=== PATIENT | female | born 1930 | race Caucasian/White ===

== ENCOUNTER → 2016-08-13 | Outpatient (CLI) | payer OTHER ==
[~2016-08-13] MED LIST: ACET-1079 PO; ALBU18002 INH; ASPI81TA28 PO; BUME1TAB PO; CLR10 PO; DEXT1TAB50 PO; DILT120C PO; DILT120T8 PO; DOXY100C76 PO; FLUT1SPR12 NAE; GABA-112 PO; ISOS30TA3 PO; LEVO175T3 PO; METO25TA56 PO; MULT-190 PO; NIAC250T8 PO; POTA20TA13 PO; SYN150 PO; [UNRECOGNIZED DRUG - CODE] TOP
--- NOTE | 2016-08-13 10:17 | DIAGNOSTIC IMAGING REPORT ---
CT OF THE CHEST WITHOUT IV CONTRAST CLINICAL HISTORY: J18.9 pneumonia COMPARISON STUDY: Outside CT scan dated 06/26/2016 CT DOSE: 281.92 mGycm TECHNIQUE: CT of the thorax was performed from the thoracic inlet to the lung bases. Images are reviewed in the axial, sagittal, and coronal planes. IV contrast was not administered for this examination. FINDINGS: Thyroid: No significant thyroid tissue is visualized. Thoracic aorta: The thoracic aorta is normal in course and caliber, noting standard 3 vessel arch anatomy. Heart: There are moderate coronary artery calcifications. Lungs and pleural spaces: There is evidence for underlying interstitial lung disease. There is subpleural reticulation. There is evidence for traction bronchiectasis. There are areas of groundglass opacification most pronounced within the upper lobes. The findings remain essentially unchanged from the preceding study. There are no pleural effusions. Mediastinum: There is mild mediastinal lymphadenopathy, with enlarged paratracheal and prevascular and subcarinal lymph nodes, unchanged from the preceding examination. This may be secondary to interstitial lung disease. Vidhya: Evaluation the hilar structures is limited due to the lack of intravenous contrast Axilla: There is no evidence of pathologic axillary lymphadenopathy Upper abdomen: Partially visualized upper abdominal viscera is within normal limits. Skeletal structures: There are no lytic or blastic osseous lesions. IMPRESSION: 1. Nonspecific interstitial lung disease, unchanged from the prior May 2016 study. This is characterized by subpleural reticulation, traction bronchiectasis, and areas of groundglass attenuation. 2. Mild mediastinal lymphadenopathy, unchanged the prior study, and possibly secondary to the patient's underlying interstitial lung disease 3. No evidence of acute parenchymal consolidation Electronically signed by: Jann Pena M.D. 08/13/2016 10:15 AM Dictated Date/Time: 08/13/2016 10:10 AM
== END | disposition home or self-care (01) ==
LOC: C.CTS 09:55
PROVIDERS: ATTEND Internal Medicine
DX: J18.9 Pneumonia, unspecified organism (principal)

== ENCOUNTER → 2016-09-23 | Outpatient (CLI) | payer OTHER ==
--- NOTE | 2016-09-23 18:08 | DIAGNOSTIC IMAGING REPORT ---
CHEST 2 VIEWS ROUTINE CLINICAL HISTORY: 86 years-old Female presenting with congestive heart failure. TECHNIQUE: PA and lateral views of the chest were obtained. COMPARISON: 09/26/2015. FINDINGS: Median sternotomy wires and mediastinal surgical clip noted. Atherosclerosis of the aortic arch. Mildly prominent cardiac silhouette, unchanged. Reticular nodular opacities diffusely although asymmetrically greater on the left. Overall symmetric lung volumes. Nodularity in the right paramediastinal lung base may be vascular in etiology but are more prominent on the current exam. No other focal infiltrate. Pleural spaces clear. Osseous structures and upper abdomen normal. IMPRESSION: 1. Diffuse reticulonodular opacities consistent with chronic lung disease, possibly fibrosis. Apparent nodular opacities in the right paramediastinal lower lung may be vascular in etiology. CT could be considered if clinically warranted. 2. No evidence of pulmonary edema as clinically queried. Electronically signed by: Carlos Matias M.D. 09/23/2016 6:06 PM Dictated Date/Time: 09/23/2016 6:03 PM
== END | disposition home or self-care (01) ==
LOC: C.RAD 17:21
PROVIDERS: ATTEND Nurse Practitioner
DX: I50.9 Heart failure, unspecified (principal); R91.8 Other nonspecific abnormal finding of lung field

== ENCOUNTER → 2016-09-26 | Outpatient (CLI) | payer OTHER ==
[2016-09-26 16:53] LABS: BLOOD UREA NITROGEN 23 mg/dl (7-18); BUN/CREATININE RATIO 21.3 (10-20); CALCIUM 9.5 mg/dl (8.5-10.1); CARBON DIOXIDE 32 mmol/L (21-32); CHLORIDE 103 mmol/L (98-107); GLUCOSE 91 mg/dl (70-99); POTASSIUM 4.3 mmol/L (3.5-5.1); SODIUM 140 mmol/L (136-145)
== END | disposition home or self-care (01) ==
LOC: C.LABBC 13:48
PROVIDERS: ATTEND Nurse Practitioner
DX: I50.9 Heart failure, unspecified (principal)

== ENCOUNTER 2016-10-25 12:10 | Observation (INO) | payer OTHER ==
[~2016-10-25] VITALS: Ht 147.3 cm; Wt 69.3 kg
[~2016-10-25 12:10] MED LIST changes: -ALBU18002 INH; -DILT120C PO; -DILT120T8 PO; -DOXY100C76 PO; -FLUT1SPR12 NAE; -GABA-112 PO; -SYN150 PO
[2016-10-25] MEDS ORDERED: HydrALAZINE HCL 20 MG/ML VIAL IV. STA ×2 (12:49→14:24)
[2016-10-25] MEDS ORDERED: FLUT1SPR12 NAE (13:02)
[2016-10-25] MEDS ORDERED: ALBU18002 INH (13:02)
[2016-10-25] MEDS ORDERED: DILT120T8 PO (13:02)
[2016-10-25] MEDS ORDERED: GABA-112 PO ×2 (13:02)
[2016-10-25] MEDS ORDERED: SYN150 PO (13:02)
[2016-10-25] MEDS ORDERED: DOXY100C76 PO (13:03)
--- NOTE | 2016-10-25 13:13 | DIAGNOSTIC IMAGING REPORT ---
CHEST ONE VIEW PORTABLE CLINICAL HISTORY: 86 years-old Female presenting with HTN urgency. TECHNIQUE: AP view of the chest was obtained. COMPARISON: 09/23/2016. FINDINGS: Atherosclerosis of aortic arch. Median sternotomy wires and mediastinal surgical clips again noted. Prominence of the cardiac silhouette unchanged. Prominence of the pulmonary vasculature is on prior exam. Diffuse reticular opacities best demonstrated on CT from 08/13/2016. Previous identified nodular opacities most likely correspond to vascular markings. No new focal infiltrate. No large effusion or pneumothorax. Osseous structures normal. Ovoid radiodensity in the left upper quadrant may relate to medication administration. IMPRESSION: 1. Evidence of chronic interstitial lung disease best demonstrated on CT from 08/13/2016. No new focal infiltrate. 2. Cardiomegaly with pulmonary vascular prominence. No karol evidence of pulmonary edema. Electronically signed by: Carlos Matias M.D. 10/25/2016 1:11 PM Dictated Date/Time: 10/25/2016 1:09 PM
[2016-10-25 13:42] LABS: BASO % 0.5 %; BASO ABS # 0.05 K/uL (0-0.2); COMPLETE YES; HEMATOCRIT 40.3 % (37-47); IG% 0.3 %; LYMPH % 33.1 %; MEAN CELL VOLUME 92.9 fL (80-100); MEAN CORPUSCULAR HEMOGLOBIN 32.3 pg (25-34); MEAN CORPUSCULAR HGB CONC 34.7 g/dl (32-36); MEAN PLATELET VOLUME 9.5 fL (7.4-10.4); MONO % 8.3 %; NEUT % 52.8 %; PLATELET COUNT 288 K/uL (130-400); RED BLOOD COUNT 4.34 M/uL (4.2-5.4); WHITE BLOOD COUNT 9.96 K/uL (4.8-10.8)
[2016-10-25 14:01] LABS: CALCIUM 9.3 mg/dl (8.5-10.1); CREATININE 0.9 mg/dl (0.60-1.20); MAGNESIUM 1.8 mg/dl (1.8-2.4); POTASSIUM 3.6 mmol/L (3.5-5.1)
[2016-10-25 14:06] LABS: CKMB/CK RATIO 2.7 (0-3.0)
--- NOTE | 2016-10-25 14:14 | EMERGENCY ROOM VISIT NOTE ---
History Report prepared by Al: Brad Pizarro Under the Supervision of: Dr. Radha Brown M.D. First contact with patient: 12:36 Chief Complaint: HYPERTENSION Stated Complaint: EYE HEMORAGING, A-FIB History of Present Illness The patient is an 86 year old female who presents to the Emergency Room with complaints of a constant subconjunctival hemorrhage of the left eye and hypertension beginning this morning. The patient states that when she woke up this morning, her eye was completely red. She reports that she has a history of macular degeneration, but her vision is still baseline. The patient notes that she takes a baby aspirin everyday, but she has not taken it yet. She denies being on any other blood thinners. The patient states that she did take her blood pressure medication, and the last time she saw her PCP for it was a month ago. She notes that her blood pressure was high when she left home. She reports that she went to the doctors this week because she had crackles in her lungs. The patient notes that she was placed on antibiotics, and she is still on them. She states that her left neck and left ear are in pain, and her abdomen feels bloated. The patient denies chest pain and shortness of breath. She notes that her Bumex was recently increased, and she has a history of a-fib and CVA. Source of History: patient Onset: this morning Position: eye (left) Quality: other (subconjunctival hemorrhage) Timing: constant Associated Symptoms: + neck pain (left-sided), No chest pain, No SOB Note: Associated symptoms: left ear pain, bloated abdomen. Review of Systems See HPI for pertinent positives & negatives. A total of 10 systems reviewed and were otherwise negative. Past Medical & Surgical Medical Problems: (1) A-fib (2) Coronary artery disease (3) TIA (transient ischemic attack) Surgical Problems: (1) S/P CABG x 3 Family History No pertinent family history Social History Smoking Status: Never Smoker Marital Status: Housing Status: lives with family Occupation Status: retired Current/Historical Medications Scheduled Aspirin (Aspirin Ec), 81 MG PO DAILY Bumetanide (Bumex), 1 MG PO BID Dextromethorphan-Guaifenesin (Mucinex Dm Maximum Streng), 1 TAB PO DAILY Diltiazem Hcl (Cardizem), 120 MG PO QPM Doxycycline Monohydrate (Monodox), 100 MG PO BID Gabapentin (Neurontin), 100 MG PO AFTERNOON Gabapentin (Neurontin), 200 MG PO HS Isosorbide Mononitrate Ext Rel (Imdur Ext Rel), 30 MG PO QAM Levothyroxine Sodium (Synthroid), 150 MCG PO QAM Loratadine (Claritin), 10 MG PO DAILY Metoprolol Tartrate (Lopressor) (Lopressor), 12.5 MG PO BID Niacin (Niacin), 500 MG PO DAILY Ocuvite Preservision (Ocuvite Preservision), 1 TAB PO BID Potassium Chloride Microencaps (Potassium Chloride Er), 20 MEQ PO BID Scheduled PRN Acetaminophen W/ Codeine (Tylenol/Codeine #4), 1 TAB PO QID PRN for Pain Albuterol Sulfate (Proair Respiclick), 1 PUFF INH BID PRN for SOB/Wheezing Fluticasone Propionate (Nasal) (Flonase Allergy Relief Ch), 2 SPRAY ADRIENNE DAILY PRN for Allergies Coded Allergies: Penicillins (Verified Allergy, Intermediate, Diarrhea and vomiting, ) Sulfamethoxazole w/Trimethoprim (Verified Allergy, Intermediate, Diarrhea , vomiting, 10/25/16) Amoxicillin (Unverified Allergy, Unknown, RASH,GI UPSET, 10/25/16) Cantaloupe (Verified Allergy, Unknown, Itchiness, 10/25/16) Celery (Unverified Allergy, Unknown, ITCHINESS, 10/25/16) Vidal (Unverified Allergy, Unknown, ITCHINESS, 10/25/16) Peanut (Unverified Allergy, Unknown, ITCHINESS, 10/25/16) Spinach (Unverified Allergy, Unknown, ITCHINESS, 10/25/16) Statins (Unverified Allergy, Unknown, RASH, GI UPSET, 10/25/16) Physical Exam Vital Signs Date Time Temp Pulse Resp B/P (MAP) Pulse Ox O2 Delivery O2 Flow Rate FiO2 10/25/16 15:01 128/56 10/25/16 15:00 64 25 94 10/25/16 14:55 61 22 10/25/16 14:50 62 20 10/25/16 14:45 60 19 10/25/16 14:40 60 17 10/25/16 14:39 139/62 8/26/17 14:35 60 19 10/25/16 14:31 167/64 10/25/16 14:30 62 21 10/25/16 14:25 67 19 10/25/16 14:24 184/79 10/25/16 13:55 62 20 94 Room Air 10/25/16 13:40 64 18 10/25/16 13:31 160/75 10/25/16 13:28 55 161/58 98 Room Air 10/25/16 13:25 54 22 10/25/16 13:16 161/58 10/25/16 13:15 54 10/25/16 12:16 36.7 60 18 187/76 92 Room Air Physical Exam Vital signs reviewed. Noted to be HTN. General: Well-appearing 86 year old female, in no significant distress. HEENT: Left subconjunctival hemorrhage. PERRLA, neck supple. Atraumatic. Cardiovascular: Regular rate and rhythm with occasional ectopy. Pulmonary: Left greater than right crackles. Abdomen: Soft, nontender, nondistended, positive bowel sounds. Musculoskeletal: Atraumatic, no peripheral edema. Neurologic: Patient awake alert and oriented x 3, full strength in all 4 extremities. Cranial nerves 2 through 12 grossly intact. Skin: Warm, dry, no rash Medical Decision & Procedures ER Provider Diagnostic Interpretation: X-ray results as stated below per interpretation by me and the radiologist: CHEST ONE VIEW PORTABLE CLINICAL HISTORY: 86 years-old Female presenting with HTN urgency. TECHNIQUE: AP view of the chest was obtained. COMPARISON: 09/23/2016. FINDINGS: Atherosclerosis of aortic arch. Median sternotomy wires and mediastinal surgical clips again noted. Prominence of the cardiac silhouette unchanged. Prominence of the pulmonary vasculature is on prior exam. Diffuse reticular opacities best demonstrated on CT from 08/13/2016. Previous identified nodular opacities most likely correspond to vascular markings. No new focal infiltrate. No large effusion or pneumothorax. Osseous structures normal. Ovoid radiodensity in the left upper quadrant may relate to medication administration. IMPRESSION: 1. Evidence of chronic interstitial lung disease best demonstrated on CT from 08/13/2016. No new focal infiltrate. 2. Cardiomegaly with pulmonary vascular prominence. No karol evidence of pulmonary edema. Electronically signed by: Carlos Matias M.D. 10/25/2016 1:11 PM Dictated Date/Time: 10/25/2016 1:09 PM Laboratory Results 10/25/16 13:25 Red Blood Count 4.34, Mean Corpuscular Volume 92.9, Mean Corpuscular Hemoglobin 32.3, Mean Corpuscular Hemoglobin Concent 34.7, Mean Platelet Volume 9.5, Neutrophils (%) (Auto) 52.8, Lymphocytes (%) (Auto) 33.1, Monocytes (%) (Auto) 8.3, Eosinophils (%) (Auto) 5.0, Basophils (%) (Auto) 0.5, Neutrophils # (Auto) 5.25, Lymphocytes # (Auto) 3.30, Monocytes # (Auto) 0.83, Eosinophils # (Auto) 0.50, Basophils # (Auto) 0.05 10/25/16 13:25 Test 10/25/16 13:25 White Blood Count 9.96 K/uL (4.8-10.8) Red Blood Count 4.34 M/uL (4.2-5.4) Hemoglobin 14.0 g/dL (12.0-16.0) Hematocrit 40.3 % (37-47) Mean Corpuscular Volume 92.9 fL (80-100) Mean Corpuscular Hemoglobin 32.3 pg (25-34) Mean Corpuscular Hemoglobin Concent 34.7 g/dl (32-36) Platelet Count 288 K/uL (130-400) Mean Platelet Volume 9.5 fL (7.4-10.4) Neutrophils (%) (Auto) 52.8 % Lymphocytes (%) (Auto) 33.1 % Monocytes (%) (Auto) 8.3 % Eosinophils (%) (Auto) 5.0 % Basophils (%) (Auto) 0.5 % Neutrophils # (Auto) 5.25 K/uL (1.4-6.5) Lymphocytes # (Auto) 3.30 K/uL (1.2-3.4) Monocytes # (Auto) 0.83 K/uL (0.11-0.59) Eosinophils # (Auto) 0.50 K/uL (0-0.5) Basophils # (Auto) 0.05 K/uL (0-0.2) RDW Standard Deviation 45.6 fL (36.4-46.3) RDW Coefficient of Variation 13.3 % (11.5-14.5) Immature Granulocyte % (Auto) 0.3 % Immature Granulocyte # (Auto) 0.03 K/uL (0.00-0.02) Anion Gap 7.0 mmol/L (3-11) Est Creatinine Clear Calc Drug Dose 35.8 ml/min Estimated GFR () 66.2 Estimated GFR (Non- 57.1 BUN/Creatinine Ratio 20.0 (10-20) Calcium Level 9.3 mg/dl (8.5-10.1) Magnesium Level 1.8 mg/dl (1.8-2.4) Total Bilirubin 0.9 mg/dl (0.2-1) Direct Bilirubin 0.1 mg/dl (0-0.2) Aspartate Amino Transf (AST/SGOT) 17 U/L (15-37) Alanine Aminotransferase (ALT/SGPT) 12 U/L (12-78) Alkaline Phosphatase 109 U/L (45-117) Total Creatine Kinase 37 U/L (26-192) Creatine Kinase MB 1.0 ng/ml (0.5-3.6) Creatine Kinase MB Ratio 2.7 (0-3.0) Total Protein 7.4 gm/dl (6.4-8.2) Albumin 3.2 gm/dl (3.4-5.0) Laboratory results per my review. Medications Administered Medications (Trade) Dose Ordered Sig/Ysabel Route Start Time Stop Time Status Last Admin Dose Admin Hydralazine HCl (HydrALAZINE INJ) 10 mg NOW STAT IV. 10/25/16 12:49 10/25/16 12:51 DC 10/25/16 13:23 10 MG Furosemide (Lasix Inj) 20 mg NOW STAT IV 10/25/16 14:24 10/25/16 14:26 DC 10/25/16 14:37 20 MG Hydralazine HCl (HydrALAZINE INJ) 10 mg NOW STAT IV. 10/25/16 14:24 10/25/16 14:26 DC 10/25/16 14:37 10 MG ECG Indication: SOB/dyspnea Rate (beats per minute): 53 Rhythm: sinus bradycardia Findings: LBBB, PVC (occasional), no acute ischemic change, left axis deviation Change: Second EKG in the same visit was unchanged with a LBBB and no acute ischemic changes. ED Course 1246: Past medical records reviewed. The patient was evaluated in room A04B. A complete history and physical examination was performed. 1249: Ordered Hydralazine HCl 10mg IV 1413: Upon reevaluation, the patient is now complaining of chest pain, but her second EKG is unchanged.. I discussed laboratory and radiographic results with her. She verbalized agreement of the treatment plan. The patient will be evaluated for further management and care. 1424: Ordered Hydralazine HCl 10mg IV, Lasix Inj 20mg IV 1454: I discussed the patient's case with Dr. Oneal [facility] Hospitalist. The patient will be evaluated for further treatment and care. Medical Decision The patient is an 86 year old female who presents to the ED with complaints of hypertension and a subconjunctival hemorrhage. Differentials include CHF, hypertension urgency, subconjunctival hemorrhage, CVA, migraine, acute coronary syndrome, pneumonia. This patient was evaluated and appeared to be in no significant distress. IV access was obtained and laboratory work was drawn. Patient was medicated with 10 mg of IV hydralazine. EKG reveals a left bundle branch block. Laboratory work indicates a mildly elevated BNP and negative cardiac enzymes. Patient's laboratory work is otherwise unrevealing. Chest x-ray reveals interstitial lung disease. As the patient's blood pressure is still elevated and her daughter comments that she has had several pound weight gain over the last several days, she was given 20 mg of IV Lasix. She was also given an additional 10 mg of IV hydralazine. The patient will be evaluated by the hospitalist service for admission and further management. She and her daughter are aware of the plan and agree. Medication Reconcilliation Current Medication List: was personally reviewed by me Blood Pressure Screening Patient's blood pressure: Elevated blood pressure Blood pressure disposition: Referred to PCP Consults Time Called: 1452 Consulting Physician: Dr. Oneal [facility] Hospitalist Returned Call: [phone] I discussed the patient's case with Dr. Oneal [facility] Hospitalist. The patient will be evaluated for further treatment and care. Impression Primary Impression: HTN (hypertension) Additional Impressions: Fluid overload Subconjunctival hemorrhage Scribe Attestation The scribe's documentation has been prepared under my direction and personally reviewed by me in its entirety. I confirm that the note above accurately reflects all work, treatment, procedures, and medical decision making performed by me. Departure Information Dispostion Being Evaluated By Hospitalist Referrals Britany Trejo M.D. (PCP) Patient Instructions My [facility] Problem Qualifiers
[2016-10-25] MEDS ORDERED: FUROSEMIDE 40 MG/4 ML VIAL IV STA (14:24)
[2016-10-25] MEDS ORDERED: ACETAMINOPHEN PO PRN (15:15)
[2016-10-25] MEDS ORDERED: POLYETHYLENE (MIRALAX) 17 GM PACK PO PRN (15:15)
[2016-10-25] MEDS ORDERED: ALUMINUM/MAGNESIUM/SIMETH (MAALOX MAX) 30 ML UDC PO PRN (15:15)
[2016-10-25] MEDS ORDERED: CODEINE PO PRN (15:15)
[2016-10-25] MEDS ORDERED: NITROGLYCERIN 0.4 MG SL PER TAB CHARGE SL PRN (15:15)
[2016-10-25] MEDS ORDERED: FLUTICASONE PROPIONATE NA SPR 16 GM BTL NAE PRN (15:15)
[2016-10-25] MEDS ORDERED: MAGNESIUM HYDROXIDE SUSP 30 ML UDC PO PRN (15:15)
[2016-10-25] MEDS ORDERED: ACETAMINOPHEN 325 MG TAB PO PRN (15:15)
[2016-10-25] MEDS ORDERED: ONDANSETRON INJ 2 MG/ML 2 ML VIAL IV PRN (15:15)
[2016-10-25] MEDS ORDERED: ALBUTEROL HFA INHALER 8.5 GM INH PRN (15:15)
[2016-10-25 15:46] VITALS: Ht 147.3 cm; Wt 69.3 kg
[2016-10-25] MEDS ORDERED: BUMETANIDE SOLN 1 MG/4 ML VIAL IV ONE (16:00)
--- NOTE | 2016-10-25 16:12 | History and Physical ---
History & Physical Date of Service Oct 25, 2016. History & Physical admit #[id number]
--- NOTE | 2016-10-25 16:57 | HISTORY & PHYSICAL EXAMINATION ---
DATE OF ADMISSION: 10/25/2016 CHIEF COMPLAINT: Red eye. HISTORY OF PRESENT ILLNESS: The patient is a pleasant 86-year-old female accompanied by her daughter. The patient woke up this morning with a very red eye. The daughter checked the blood pressure, it was elevated and because of all this they brought her to the ER for further evaluation. Here, she was found to be fairly hypertensive at 187/76 but had no other symptoms; however, because of this a question of chest pain and just general concern over the elevation in blood pressure as well as a probable mild congestive heart failure exacerbation, we were asked to see her for further evaluation and treatment. The patient herself notes that generally she is feeling okay. She has no headache. She has chronically blurred vision because of macular degeneration but no new visual changes. She has no focal numbness or weakness except for that of down her left arm from her neck which has been going on for about a month after a fall. She has no chest pressure or heaviness, no shortness of breath. She does admit to a little bit of a vague left upper chest pain closer to her armpit that is fleeting, comes and goes. It seems in seconds, is not a pressure in quality. She has a hard time describing the quality, spontaneous onset, spontaneous resolution and she thinks it is gas. She also notes left-sided neck pain that radiates down to her hand, it has been there since the fall about a month ago. It is definitely not severe or intense. The daughter notes about a 3-4 pound weight gain over the last week in spite of increasing Bumex as well as a cough with yellow sputum. REVIEW OF SYSTEMS: Otherwise negative, except for as above. PAST MEDICAL HISTORY: Arthritis, Afib, CHF, coronary artery disease, hypertension, hypothyroidism, interstitial lung disease, macular degeneration, spinal stenosis and a subdural hematoma from a fall from which she has been cleared from neurosurgical care. HOME MEDICATIONS: Tylenol #4 q. 4 hours p.r.n. pain, aspirin 81 mg daily, Bumex 1 mg b.i.d., Claritin 10 mg daily, diltiazem ER 120 mg daily, doxycycline just started 100 mg b.i.d. 3 days ago, Flonase 50 mcg 1 spray each nostril daily, gabapentin 100 mg at bedtime, Atarax 10 mg t.i.d. p.r.n. itch, Imdur 30 mg daily, Synthroid 150 mcg daily, Lomotil daily p.r.n. diarrhea, metoprolol 12.5 mg tartrate b.i.d., Mucinex D daily q. 12 hours, niacin ER 500 mg daily, nitroglycerin 0.4 under the tongue p.r.n. chest pain, potassium 20 mEq daily, Preservision, multivitamin daily, albuterol 90 mcg 1 puff q. 4 hours p.r.n. shortness of breath or wheeze. PAST SURGICAL HISTORY: Appendectomy, CABG x3, hysterectomy and a total thyroidectomy. FAMILY HISTORY: Colon cancer, hypertension, leukemia, coronary disease. SOCIAL HISTORY: She is never a smoker. She lives here with family. She is retired and . No significant alcohol use. ALLERGIES: NUMEROUS AND INCLUDE AMOXICILLIN, CANTALOUPE, CELERY, ORANGE, PEANUT, PENICILLIN, SPINACH, STATIN, SULFAMETHOXAZOLE AND TRIMETHOPRIM. PHYSICAL EXAMINATION: VITAL SIGNS: Temperature 36.7, pulse 60, respiratory rate 18, blood pressure initially 187/76 now down to about 130/60, 92% on room air. GENERAL: She is awake, alert, oriented x3, pleasant, in no acute distress. HEAD, EYES, EARS, NOSE, AND THROAT: Normocephalic, atraumatic. Mucous membranes are moist. CARDIOVASCULAR: Regular. I believe no rubs, murmurs, or gallops. LUNGS: Show diffuse bilateral crackles more accentuated at the bases. Good air entry upper lung. No accessory muscle use. Good effort. ABDOMEN: Soft, mildly distended, nontender. No masses or organomegaly. EXTREMITIES: Without cyanosis, clubbing or edema. She has bilateral equal calf tenderness without any erythema, cords or other lesions. MUSCULOSKELETAL EXAMINATION: Shows left and osteopathic structural exam. Shows left-sided cervical paraspinal musculature to be high in tone, decreased range of motion and fairly tender. Counter strain was done to multiple tender points as well as just a gentle manual traction with some improvement. The patient tolerated it well. MENTAL STATE: Shows good recent and remote recall. Normal mood and affect. Good judgment and insight. LABORATORY AND DIAGNOSTICS: CBC shows a white count of 9.96, hemoglobin 14, platelets 288. Complete metabolic panel with sodium 142, potassium 3.6, chloride 105, CO2 30, BUN 18, creatinine 0.9, calcium 9.3, glucose 113. Mag 1.8, total bili 0.9, direct 0.1, AST 17, ALT 12, alkaline phosphatase 109. CK total 37, MB of 1, albumin of 3.2. EKG with a left bundle branch block. Chest x-ray shows chronic interstitial lung disease that is similar to previously noted films including a CT from 08/13/2016, cardiomegaly and vascular prominence without karol pulmonary edema. ASSESSMENT AND PLAN: 1. Uncontrolled hypertension with subconjunctival hemorrhage. Beyond this fortunately she does not show any other signs or symptoms of hypertensive urgency. The CHF seems to have preceded the elevated hypertension as she has been having symptoms for at least a week and on review of her outpatient charts, it seems as though her PCP has been rather actively managing her CHF for the better part of the last month or more. She has been given hydralazine in the ER and blood pressures have improved rather dramatically. Because of the CHF, at this point in time, will continue to manage her blood pressure predominantly with diuretics; however, once she is more dried out likely would either transition to an increased dose of her metoprolol if she tolerates or starting an Rock or an arb. 2. Acute on chronic what appears to be diastolic CHF, looks like her last echo was about a year ago. Will repeat for a new baseline. Check cardiac enzymes just given that we do not quite know her history well and she did come in with fairly high blood pressure just to rule out that the high blood pressure was causing CHF as some sort of hypertensive urgency which again is doubtful. Will diurese her and follow. 3. Acute on chronic interstitial lung disease exacerbation. Separate from the CHF. Her cough with yellow sputum does appear to be a bit infectious as in line with the evidence covering despite the lack of a pneumonia covering for atypicals with something like doxycycline should hasten recovery and and shorten hospital stay. 4. Cervical radiculopathy. 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 I did gentle manipulative medicine to try to loosen the muscle spasm and will also utilize Voltaren gel. 5. Cervical somatic dysfunction. Osteopathic manipulative medicine as above. We discussed potentials for ongoing outpatient manipulative medicine to try to stave off any further interventions for the neck and how to do this safely and appropriately. 6. Hypothyroidism. Continue her Synthroid. 7. Atrial fibrillation. Continue her rate controlling medication. She is not on anticoagulation because of frequent falls including a not that far long ago history of subdural. 8. Coronary disease. She does appear to be stable. See above otherwise. 9. Deep venous thrombosis prophylaxis. Because of the subdurals etc., pharmacologic prophylaxis seems to be relatively contraindicated because of her age and skin frailty, mechanical prophylaxis would be of dubious benefit and of possible harm.
[2016-10-25 17:15] VITALS: BP 117/66; PULSE 61; TEMP 36.6; O2SAT 96
[2016-10-25] MEDS: DICLOFENAC SOD 1% GEL 100 GM TUBE EXT SCH ×2 (17:59→20:41)
[2016-10-25] MEDS: GABAPENTIN 100 MG CAP PO SCH ×2 (18:00→20:42)
[2016-10-25] MEDS ORDERED: NURSING VERBAL MED ORDER ONE ×2 (18:15→18:30)
[2016-10-25] MEDS ORDERED: LACTASE 3000 UNIT TAB PO PRN (18:45)
[2016-10-25] MEDS ORDERED: ACETAMINOPHEN/CODEINE 300/30MG TAB PO PRN (18:45)
[2016-10-25 19:02] VITALS: BP 110/65; PULSE 66; TEMP 36.5; O2SAT 95
[2016-10-25] MEDS: ALBUTEROL HFA INHALER 8.5 GM INH SCH (20:41)
[2016-10-25] MEDS: DOXYCYCLINE HYCLATE 100 MG CAP PO SCH (20:42)
[2016-10-25] MEDS: DILTIAZEM HCL 120 MG EXT REL CAP PO SCH (20:42)
[2016-10-25] MEDS: CEROVITE ADV FORMULA TAB PO SCH (20:43)
[2016-10-25] MEDS: METOPROLOL TARTRATE 25 MG TAB PO SCH (20:43)
[2016-10-25] MEDS: POTASSIUM CHLORIDE 20 MEQ TABCR PO SCH (20:43)
[2016-10-25 20:45] VITALS: BP 125/70; PULSE 66
[2016-10-25] MEDS ORDERED: BUMETANIDE 1 MG TAB PO SCH (21:00)
[2016-10-25] MEDS ORDERED: DOXYCYCLINE HYCLATE 100 MG CAP PO SCH (21:00)
[2016-10-25] MEDS ORDERED: DILTIAZEM HCL 120 MG PO SCH (21:00)
[2016-10-25] MEDS ORDERED: DILT120C PO (21:44)
[2016-10-25] MEDS ORDERED: IV FLUIDS COMPLETED PRN (22:45)
[2016-10-25 23:54] VITALS: BP 113/66; PULSE 61; TEMP 36.4; O2SAT 91
[2016-10-26 05:44] LABS: BLOOD UREA NITROGEN 22 mg/dl (7-18); CALCIUM 9.2 mg/dl (8.5-10.1); CARBON DIOXIDE 28 mmol/L (21-32); CHLORIDE 105 mmol/L (98-107); GLUCOSE 115 mg/dl (70-99); POTASSIUM 3.8 mmol/L (3.5-5.1); SODIUM 141 mmol/L (136-145)
[2016-10-26] MEDS: LEVOTHYROXINE 150 MCG TAB PO SCH (06:08)
[2016-10-26 08:12] VITALS: BP 147/71; PULSE 53; TEMP 36.6; O2SAT 93
[2016-10-26] MEDS ORDERED: PERFLUTREN LIPID MICROSPHERE (DEFINITY) IV ONE (08:19)
[2016-10-26] MEDS: DICLOFENAC SOD 1% GEL 100 GM TUBE EXT SCH ×4 (08:51→21:34)
[2016-10-26] MEDS: METOPROLOL TARTRATE 25 MG TAB PO SCH ×2 (08:52→21:35)
[2016-10-26] MEDS: ALBUTEROL HFA INHALER 8.5 GM INH SCH ×2 (08:52→21:34)
[2016-10-26] MEDS: POTASSIUM CHLORIDE 20 MEQ TABCR PO SCH ×2 (08:53→21:38)
[2016-10-26] MEDS: DOXYCYCLINE HYCLATE 100 MG CAP PO SCH ×2 (08:54→21:35)
[2016-10-26] MEDS: CEROVITE ADV FORMULA TAB PO SCH ×2 (08:54→21:36)
[2016-10-26] MEDS: NIACIN 500 MG TAB IMMEDIATE RELEASE PO SCH (08:54)
[2016-10-26] MEDS: LORATADINE 10 MG TAB PO SCH (08:55)
[2016-10-26] MEDS: ISOSORBIDE MONONITRATE 30 MG TABCR PO SCH (08:56)
[2016-10-26] MEDS: ASPIRIN 81 MG ECTAB PO SCH (08:56)
[2016-10-26 08:57] VITALS: PULSE 66
[2016-10-26] MEDS ORDERED: DEXTROMETHORPHAN GUAIFENESIN PO SCH (09:00)
[2016-10-26] MEDS: BUMETANIDE 1 MG TAB PO SCH (09:00)
[2016-10-26] MEDS ORDERED: NURSING VERBAL MED ORDER ONE (09:30)
--- NOTE | 2016-10-26 09:54 | Progress Note ---
Subjective Date of Service: Oct 26, 2016. Subjective this pt is doing much better, has no issues with vision and has many questions about conjunctival hemorrhage, feels slightly weak and unsteady Problem List Medical Problems: (1) Abrasion Status: Acute (2) Acute on chronic intracranial subdural hematoma Status: Acute (3) Atrial fibrillation with rapid ventricular response Status: Acute (4) Contusion Status: Acute (5) Fall Status: Acute (6) Fluid overload Status: Acute (7) Head injury Status: Acute (8) HTN (hypertension) Status: Acute (9) Subconjunctival hemorrhage Status: Acute (10) UTI (urinary tract infection) Status: Acute Review of Systems Constitutional: + weakness, + fatigue, No fever, No chills Eyes: + redness, No worsening of vision, No eye pain Respiratory: No cough, No shortness of breath Cardiac: No chest pain, No edema Abdomen: No pain Musculoskeletal: No joint pain, No muscle pain Female : No dysuria, No urinary frequency Neurologic: + weakness, No memory loss, No paralysis Psychiatric: No depression symptoms, No anhedonism Objective Vital Signs Date Time Temp Pulse Resp B/P (MAP) Pulse Ox O2 Delivery O2 Flow Rate FiO2 10/26/16 08:57 66 10/26/16 08:12 36.6 53 17 147/71 (96) 93 10/26/16 04:00 Room Air 10/26/16 00:01 Room Air 10/25/16 23:54 36.4 61 20 113/66 (82) 91 Room Air 10/25/16 20:45 66 125/70 (88) 10/25/16 20:00 Room Air 10/25/16 19:02 36.5 66 18 110/65 (80) 95 10/25/16 17:15 Room Air 10/25/16 17:15 36.6 61 18 117/66 (83) 96 10/25/16 16:17 36.7 66 23 135/62 94 10/25/16 16:11 68 18 93 10/25/16 15:56 65 24 93 10/25/16 15:51 66 23 94 10/25/16 15:46 Room Air 10/25/16 15:36 67 30 95 10/25/16 15:31 135/62 10/25/16 15:21 65 25 92 10/25/16 15:06 65 25 93 10/25/16 15:01 128/56 10/25/16 15:00 64 25 94 10/25/16 14:55 61 22 10/25/16 14:50 62 20 10/25/16 14:45 60 19 10/25/16 14:40 60 17 10/25/16 14:39 139/62 10/25/16 14:35 60 19 10/25/16 14:31 167/64 10/25/16 14:30 62 21 10/25/16 14:25 67 19 10/25/16 14:24 184/79 10/25/16 13:55 62 20 94 Room Air 10/25/16 13:40 64 18 10/25/16 13:31 160/75 10/25/16 13:28 55 161/58 98 Room Air 10/25/16 13:25 54 22 10/25/16 13:16 161/58 10/25/16 13:15 54 10/25/16 12:16 36.7 60 18 187/76 92 Room Air Physical Exam General Appearance: WD/WN, + mild distress Eyes: PERRL, + pertinent finding (has conjunctival hemorrhage) Neck: supple, no JVD Respiratory/Chest: chest non-tender, lungs clear, normal breath sounds Cardiovascular: regular rate, rhythm, no murmur Abdomen: normal bowel sounds, non tender, soft Extremities: no pedal edema, no calf tenderness Neurologic/Psychiatric: alert, oriented x 3 Laboratory Results Last 24 Hours Test 10/25/16 13:25 10/25/16 21:10 10/26/16 05:03 White Blood Count 9.96 K/uL Red Blood Count 4.34 M/uL Hemoglobin 14.0 g/dL Hematocrit 40.3 % Mean Corpuscular Volume 92.9 fL Mean Corpuscular Hemoglobin 32.3 pg Mean Corpuscular Hemoglobin Concent 34.7 g/dl Platelet Count 288 K/uL Mean Platelet Volume 9.5 fL Neutrophils (%) (Auto) 52.8 % Lymphocytes (%) (Auto) 33.1 % Monocytes (%) (Auto) 8.3 % Eosinophils (%) (Auto) 5.0 % Basophils (%) (Auto) 0.5 % Neutrophils # (Auto) 5.25 K/uL Lymphocytes # (Auto) 3.30 K/uL Monocytes # (Auto) 0.83 K/uL Eosinophils # (Auto) 0.50 K/uL Basophils # (Auto) 0.05 K/uL RDW Standard Deviation 45.6 fL RDW Coefficient of Variation 13.3 % Immature Granulocyte % (Auto) 0.3 % Immature Granulocyte # (Auto) 0.03 K/uL Sodium Level 142 mmol/L 141 mmol/L Potassium Level 3.6 mmol/L 3.8 mmol/L Chloride Level 105 mmol/L 105 mmol/L Carbon Dioxide Level 30 mmol/L 28 mmol/L Anion Gap 7.0 mmol/L 8.0 mmol/L Blood Urea Nitrogen 18 mg/dl 22 mg/dl Creatinine 0.90 mg/dl 1.00 mg/dl Est Creatinine Clear Calc Drug Dose 35.8 ml/min 32.2 ml/min Estimated GFR () 66.2 58.3 Estimated GFR (Non- 57.1 50.3 BUN/Creatinine Ratio 20.0 22.0 Random Glucose 113 mg/dl 115 mg/dl Calcium Level 9.3 mg/dl 9.2 mg/dl Magnesium Level 1.8 mg/dl Total Bilirubin 0.9 mg/dl Direct Bilirubin 0.1 mg/dl Aspartate Amino Transf (AST/SGOT) 17 U/L Alanine Aminotransferase (ALT/SGPT) 12 U/L Alkaline Phosphatase 109 U/L Total Creatine Kinase 37 U/L Creatine Kinase MB 1.0 ng/ml 0.8 ng/ml 0.9 ng/ml Creatine Kinase MB Ratio 2.7 Total Protein 7.4 gm/dl Albumin 3.2 gm/dl Assessment and Plan 86 F with uncontrolled HTN, conjunctival HTN, pulmonary fibrosis, with productive cough Uncontrolled hypertension with subconjunctival hemorrhage. chronic diastolic CHF, with chronically abnormal pulmonary exam from chronic interstitial lung disease exacerbation. Yellow sputum does appear to be a bit infectious started doxycycline, this was preceding her issues Afib rate controlled, and no AC due to chronic subdural therapy Cervical radiculopathy. Voltaren gel. Hypothyroidism. Synthroid. .
[2016-10-26] MEDS: GUAIFENESIN 600 MG TABCR PO SCH (11:02)
--- NOTE | 2016-10-26 11:41 | ECHOCARDIOGRAM REPORT ---
*NOTICE TO RECEIVING [employer]Y This information is strictly Confidential and protected under [place] law. [place] law prohibits you from making any further disclosure of this information unless further disclosure is expressly permitted by the written consent of the person to whom it pertains or is authorized by law. A general authorization for the release of medical or other information is not sufficient for this purpose. Hospital accepts no responsibility if the information is made available to any other person, INCLUDING THE PATIENT. Interpretation Summary * Name: TORREY ZAIDI Study Date: 10/26/2016 08:03 AM BP: 147/71 mmHg * Patient Location: [facility]\S\N281\S\2 HR: 55 * : 1930 (M/d/yyyy) Gender: Female Height: 58 in * Age: 86 yrs Ethnicity: [place] Weight: 154 lb * Ordering Physician: Abhay Oneal * Referring Physician: Self, Referred * Performed By: Timo Locke RDCS * * Reason For Study: Chest pain * BSA: 1.6 m2 * -- Conclusions -- * Left ventricular systolic function is normal. * Grade I diastolic dysfunction, (abnormal relaxation pattern). * The right ventricular systolic function is reduced as assessed by tricuspid annular plane systolic excursion (TAPSE) (TAPSE <1.6 cm). * Mild aortic regurgitation. * There is mild to moderate mitral regurgitation. * There is mild tricuspid regurgitation. * Right ventricular systolic pressure is elevated at 30-40mmHg. Procedure Details * A complete two-dimensional transthoracic echocardiogram was performed (2D, M-mode, Doppler and color flow Doppler). * The study was technically difficult. * The study was technically difficult, but visualization was adequate with the administration of Definity ultrasound contrast. * A contrast injection of Definity was performed to improve assessment of LV function. * Contrast was injected into an intravenous site in the left arm. * One vial of Definity ultrasound contrast was diluted in normal saline to a total volume of 10 ml. A total of '3' ml of solution was administered during imaging. * Lot # [id number] of Definity utilized for procedure. * Expiration date . * The attending nurse who injected the contrast agent was MANDY Blanchard. Left Ventricle * The left ventricle is normal in size. * There is normal left ventricular wall thickness. * Left ventricular systolic function is normal. * Grade I diastolic dysfunction, (abnormal relaxation pattern). * Ejection Fraction = 55-60%. * The left ventricular wall motion is normal. Right Ventricle * The right ventricle is not well visualized. * The right ventricle is grossly normal size. * The right ventricular systolic function is reduced as assessed by tricuspid annular plane systolic excursion (TAPSE) (TAPSE <1.6 cm). Atria * The left atrial size is normal. * Right atrial size is normal. Mitral Valve * The mitral valve anatomy is normal. * There is mild to moderate mitral regurgitation. Tricuspid Valve * The tricuspid valve anatomy is normal. * There is mild tricuspid regurgitation. * Right ventricular systolic pressure is elevated at 30-40mmHg. Aortic Valve * Aortic valve sclerosis mild, without significant aortic valvular stenosis. * No hemodynamically significant valvular aortic stenosis. * Mild aortic regurgitation. Great Vessels * The aortic root is normal size. Pericardium/Pleural * There is no pericardial effusion. MMode 2D Measurements and Calculations IVSd 1.1 cm IVSs 1.4 cm LVIDd 3.8 cm LVIDs 2.5 cm LVPWd 1.1 cm LVPWs 1.7 cm IVS/LVPW 0.93 FS 34.6 % EDV(Teich) 62.3 ml ESV(Teich) 22.1 ml EF(Teich) 64.5 % EDV(cubed) 55.2 ml ESV(cubed) 15.5 ml EF(cubed) 72.0 % % IVS thick 31.2 % % LVPW thick 51.6 % LV mass(C)d 134.2 grams LV mass(C)dI 82.4 grams/m\S\2 LV mass(C)s 133.6 grams LV mass(C)sI 82.0 grams/m\S\2 SV(Teich) 40.1 ml SI(Teich) 24.6 ml/m\S\2 SV(cubed) 39.8 ml SI(cubed) 24.4 ml/m\S\2 EPSS 0.55 cm Ao root diam 2.3 cm Ao root area 4.3 cm\S\2 ACS 1.2 cm LA dimension 3.8 cm asc Aorta Diam 2.5 cm LA/Ao 1.6 LVOT diam 1.9 cm LVOT area 2.7 cm\S\2 LVAd ap4 24.3 cm\S\2 LVLd ap4 7.1 cm EDV(MOD-sp4) 68.0 ml LVAs ap4 12.8 cm\S\2 LVLs ap4 5.1 cm ESV(MOD-sp4) 28.0 ml EF(MOD-sp4) 58.8 % LVAd ap2 16.9 cm\S\2 LVLd ap2 5.7 cm EDV(MOD-sp2) 40.0 ml LVAs ap2 9.6 cm\S\2 LVLs ap2 4.6 cm ESV(MOD-sp2) 16.0 ml EF(MOD-sp2) 60.0 % SV(MOD-sp4) 40.0 ml SI(MOD-sp4) 24.5 ml/m\S\2 SV(MOD-sp2) 24.0 ml SI(MOD-sp2) 14.7 ml/m\S\2 Doppler Measurements and Calculations MV E max jada 112.0 cm/sec MV A max jada 110.6 cm/sec MV E/A 1.0 MV dec time 0.25 sec Ao V2 max 184.6 cm/sec Ao max PG 13.6 mmHg Ao max PG (full) 8.0 mmHg FRANCISCO(V,A) 1.7 cm\S\2 FRANCISCO(V,D) 1.7 cm\S\2 AI max jada 359.0 cm/sec AI max PG 51.6 mmHg AI dec slope 185.0 cm/sec\S\2 AI P1/2t 568.4 msec LV V1 max PG 5.6 mmHg LV V1 max 118.6 cm/sec PA V2 max 101.6 cm/sec PA max PG 4.1 mmHg PA acc slope 552.5 cm/sec\S\2 PA acc time 0.12 sec TR max jada 302.4 cm/sec PA pr(Accel) 25.1 mmHg
[2016-10-26] MEDS: GABAPENTIN 100 MG CAP PO SCH ×2 (13:31→21:36)
[2016-10-26] MEDS ORDERED: BUMETANIDE 1 MG TAB PO SCH (16:00)
[2016-10-26 16:47] VITALS: BP 126/61; PULSE 61; TEMP 36.7; O2SAT 92
[2016-10-26 19:35] VITALS: BP 117/67; PULSE 60; TEMP 37; O2SAT 94
[2016-10-26] MEDS: DILTIAZEM HCL 120 MG EXT REL CAP PO SCH (21:37)
[2016-10-26 23:42] VITALS: BP 136/69; PULSE 61; TEMP 36.6; O2SAT 91
[2016-10-27] VITALS (7 sets, daily range): BP systolic 105–136; BP diastolic 62–71; PULSE 56–66; TEMP 36.6–36.8; O2SAT 91–94
[2016-10-27] MEDS: LEVOTHYROXINE 150 MCG TAB PO SCH (06:02)
[2016-10-27] MEDS: DICLOFENAC SOD 1% GEL 100 GM TUBE EXT SCH ×2 (07:38→12:47)
[2016-10-27] MEDS: ALBUTEROL HFA INHALER 8.5 GM INH SCH (07:39)
[2016-10-27] MEDS: CEROVITE ADV FORMULA TAB PO SCH (07:40)
[2016-10-27] MEDS: METOPROLOL TARTRATE 25 MG TAB PO SCH (07:40)
[2016-10-27] MEDS: BUMETANIDE 1 MG TAB PO SCH (07:41)
[2016-10-27] MEDS: ASPIRIN 81 MG ECTAB PO SCH (07:41)
[2016-10-27] MEDS: DOXYCYCLINE HYCLATE 100 MG CAP PO SCH (07:42)
[2016-10-27] MEDS: NIACIN 500 MG TAB IMMEDIATE RELEASE PO SCH (07:42)
[2016-10-27] MEDS: LORATADINE 10 MG TAB PO SCH (07:42)
[2016-10-27] MEDS: POTASSIUM CHLORIDE 20 MEQ TABCR PO SCH (07:43)
[2016-10-27] MEDS: ISOSORBIDE MONONITRATE 30 MG TABCR PO SCH (07:43)
[2016-10-27] MEDS: GUAIFENESIN 600 MG TABCR PO SCH (07:43)
[2016-10-27 11:55] LABS: POINT OF CARE PRO-BNP 1514 pg/ml (0-1800); POINT OF CARE TROPONIN I < 0.030 ng/ml (0-0.045)
[2016-10-27] MEDS ORDERED: BUME1TAB PO (11:57)
--- NOTE | 2016-10-27 11:59 | Discharge Instructions ---
Discharge Instructions Date of Service Oct 27, 2016. Admission Reason for Admission: Htn, Subconjunctival Hemorrhage Discharge Discharge Diagnosis / Problem: hypertensive urgency, subconjunctival hemorrhage Discharge Goals Goal(s): Diagnostic testing, Therapeutic intervention Activity Recommendations Activity Limitations: resume your previous activity . Current Hospital Diet Patient's current hospital diet: Low Sodium Diet (2gm Na) Discharge Diet Recommended Diet: Regular Diet, Low Sodium Diet (2gm Na) Pending Studies Studies pending at discharge: no Medical Emergencies . Who to Call and When: Medical Emergencies: If at any time you feel your situation is an emergency, please call 911 immediately. . Non-Emergent Contact Non-Emergency issues call your: Primary Care Provider Call Non-Emergent contact if: temperature is above 101, your pain is unusual for you . . "Provider Documentation" section prepared by Harvinder Allen. . VTE Core Measure Inpt VTE Proph given/why not?: Contraindicated
[2016-10-27] MEDS: GABAPENTIN 100 MG CAP PO SCH (12:47)
--- NOTE | 2016-10-27 18:46 | Discharge Summary ---
Discharge Summary Date of Service Oct 27, 2016. Discharge Summary Admission Date: Oct 25, 2016 at 15:12 Discharge Date: Oct 27, 2016 Discharge Disposition: Home Principal Diagnosis: hypertensive emergency, conjunctival hemorrhage Procedures: Echocardiogram no significant changes carotid Dopplers unremarkable Medication Reconciliation Changed Medications: Bumetanide (Bumex) 1 Mg Tab 1 MG PO UD, #90 TAB 6 Refills (Changed from: BID; Refills: ) 2 pills in morning one in afternoon Continued Medications: Acetaminophen W/ Codeine (Tylenol/Codeine #4) 1 Tab Tab 1 TAB PO QID PRN for Pain for 30 Days, #120 TAB Albuterol Sulfate (Proair Respiclick) 108 Mcg/Act Aer 1 PUFF INH BID PRN for SOB/Wheezing Aspirin (Aspirin Ec) 81 Mg Tab 81 MG PO DAILY TAKES MID DAY Dextromethorphan-Guaifenesin (Mucinex Dm Maximum Streng) 1 Tab Tab 1 TAB PO DAILY for 10 Days, #10 TAB 1 Refill Diltiazem Hcl Coated Beads (Diltiazem Hcl Er) 120 Mg Cap 120 MG PO HS Doxycycline Monohydrate (Monodox) 100 Mg Cap 100 MG PO BID, CAP Fluticasone Propionate (Nasal) (Flonase Allergy Relief Ch) 50 Mcg/Act Spr 2 SPRAY ADRIENNE DAILY PRN for Gabapentin (Neurontin) 100 Mg Cap 100 MG PO AFTERNOON, CAP Gabapentin (Neurontin) 100 Mg Cap 200 MG PO HS, CAP Isosorbide Mononitrate Ext Rel (Imdur Ext Rel) 30 Mg Ertab 30 MG PO QAM, TAB Levothyroxine Sodium (Synthroid) 150 Mcg Tab 150 MCG PO QAM Loratadine (Claritin) 10 Mg Tab 10 MG PO DAILY, TAB Metoprolol Tartrate (Lopressor) (Lopressor) 25 Mg Tab 12.5 MG PO BID, TAB Niacin (Niacin) 250 Mg Tab 500 MG PO DAILY, TAB Ocuvite Preservision (Ocuvite Preservision) 1 Tab Tab 1 TAB PO BID, TAB Potassium Chloride Microencaps (Potassium Chloride Er) 20 Meq Tab 20 MEQ PO BID, TAB Discharge Exam Review of Systems: Constitutional: No fever, No chills Respiratory: No cough, No sputum Cardiovascular: No chest pain, No orthopnea Abdomen: No nausea, No vomiting Physical Exam: General Appearance: WD/WN, no apparent distress Eyes: + pertinent finding (left eye subconjunctival hemorrhage) Neck: supple, thyroid normal, no JVD Respiratory/Chest: chest non-tender, lungs clear, normal breath sounds Cardiovascular: regular rate, rhythm, no murmur Abdomen / GI: + pertinent finding (no abdominal bruits heard) Hospital Course 86 F with uncontrolled HTN, conjunctival HTN, pulmonary fibrosis, with productive cough Uncontrolled hypertension with subconjunctival hemorrhage patient's blood pressure has been better controlled with increased Bumex dosing this will also help her. chronic diastolic CHF, with chronically abnormal pulmonary exam from chronic interstitial lung disease exacerbation. Complete doxycycline for bronchitis as start her prehospital Afib rate controlled, and no AC due to chronic subdural therapy Cervical radiculopathy. Voltaren gel. Hypothyroidism. Synthroid. Daughter at bedside agreeable to take her home . Total Time Spent: Greater than 30 minutes This includes examination of the patient, discharge planning, medication reconciliation, and communication with other providers. Discharge Instructions Please refer to the electronic Patient Visit Report (Discharge Instructions) for additional information.
== END 2016-10-27 13:40 | disposition home or self-care (01) ==
LOC: C.EDB 12:13 → C.MED 15:12 → ENRESERV 15:52
PROVIDERS: ADMIT Family Medicine; ATTEND Internal Medicine
DX: I16.1 Hypertensive emergency (principal); H11.32 Conjunctival hemorrhage, left eye; E87.70 Fluid overload, unspecified; I48.91 Unspecified atrial fibrillation; I11.0 Hypertensive heart disease with heart failure; I50.9 Heart failure, unspecified; I25.10 Atherosclerotic heart disease of native coronary artery without angina pectoris; E03.9 Hypothyroidism, unspecified; J40 Bronchitis, not specified as acute or chronic; J84.89 Other specified interstitial pulmonary diseases; M54.12 Radiculopathy, cervical region; H35.30 Unspecified macular degeneration; Z86.73 Personal history of transient ischemic attack (TIA), and cerebral infarction without residual deficits; Z79.82 Long term (current) use of aspirin; Z79.899 Other long term (current) drug therapy

== ENCOUNTER → 2016-11-17 | Outpatient (CLI) | payer OTHER ==
[~2016-11-17] MED LIST changes: +ALBU18002 INH; +DILT120C PO; +DOXY100C76 PO; +FLUT1SPR12 NAE; +GABA-112 PO; -LEVO175T3 PO; +SYN150 PO; -[UNRECOGNIZED DRUG - CODE] TOP
[2016-11-17 17:21] LABS: BLOOD UREA NITROGEN 29 mg/dl (7-18); GLUCOSE 116 mg/dl (70-99)
[2016-11-17 17:22] LABS: BUN/CREATININE RATIO 26.3 (10-20); CALCIUM 9.4 mg/dl (8.5-10.1); CARBON DIOXIDE 30 mmol/L (21-32); CHLORIDE 102 mmol/L (98-107); MAGNESIUM 1.9 mg/dl (1.8-2.4); POTASSIUM 3.9 mmol/L (3.5-5.1); SODIUM 139 mmol/L (136-145)
== END | disposition home or self-care (01) ==
LOC: C.LABBC 14:14
PROVIDERS: ATTEND Internal Medicine
DX: I48.91 Unspecified atrial fibrillation (principal); I50.9 Heart failure, unspecified; I11.0 Hypertensive heart disease with heart failure

== ENCOUNTER 2016-11-18 09:58 | Inpatient (IN) | payer OTHER ==
[~2016-11-18] VITALS: Ht 157.5 cm; Wt 72.7 kg
[2016-11-18] MEDS ORDERED: SODIUM CHLORIDE 0.9% 1000ML 1,000 ML IV STA (10:20)
[2016-11-18] MEDS ORDERED: SODIUM CHLORIDE 0.9% 250ML 250 ML IV STA (10:20)
--- NOTE | 2016-11-18 10:46 | DIAGNOSTIC IMAGING REPORT ---
CT OF THE HEAD WITHOUT CONTRAST CLINICAL HISTORY: Stroke symptoms. COMPARISON STUDY: Head CT December 16, 2015. CT DOSE: 965.19 mGycm TECHNIQUE: Helical axial images of the head were obtained without IV contrast. Automated exposure control was utilized for the study. A dose lowering technique was utilized adhering to the principles of ALARA. FINDINGS: No acute intracranial hemorrhage, midline shift or mass effect is present. A small right frontal lobe infarct is new since head CT of December 16, 2015 and is best shown on image 22 of 32. Lacunar infarcts within the left aspect of the ino and left cerebellar hemisphere are new since prior head CT. White matter hypodensity suggests small vessel disease. Basilar cisterns are patent. There are no extra-axial collections. There are no significant calvarial abnormalities. Visualized portions of the sinuses and mastoid air cells are clear. IMPRESSION: 1. No acute intracranial hemorrhage or mass effect. 2. 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 These are new since head CT of December 16, 2015 and likely subacute to chronic. Electronically signed by: Live Trejo M.D. 11/18/2016 10:45 AM Dictated Date/Time: 11/18/2016 10:37 AM
--- NOTE | 2016-11-18 10:52 | DIAGNOSTIC IMAGING REPORT ---
CHEST ONE VIEW PORTABLE CLINICAL HISTORY: Stroke COMPARISON STUDY: October 25, 2016 FINDINGS: The cardiac and mediastinal contours remain stable. There are postsurgical changes of a midline sternotomy. There is interstitial pulmonary fibrosis, similar to the prior study. There is no overt failure. There are no pleural effusions.[ IMPRESSION: Interstitial pulmonary fibrosis, similar to the prior study given the differences in technique. Electronically signed by: Jann Pena M.D. 11/18/2016 10:51 AM Dictated Date/Time: 11/18/2016 10:50 AM
[2016-11-18 11:06] LABS: MANUAL MICROSCOPIC REQUIRED? NO; REVIEW REQ? NO; URINE APPEARANCE CLEAR (CLEAR); URINE BILIRUBIN NEG (NEG); URINE COLOR YELLOW; URINE EPITHELIAL CELL AUTO 0-5 /lpf (0-5); URINE NITRITE NEG (NEG); URINE SPECIFIC GRAVITY 1.013 (1.000-1.030); UROBILINOGEN NEG (NEG); ZZURINE CULT IF INDIC CATH NO
[2016-11-18 11:12] LABS: BENZODIAZEPINE, URINE NEG (NEG); COCAINE,URINE NEG (NEG); PHENCYCLIDINE, URINE NEG (NEG)
--- NOTE | 2016-11-18 11:20 | EMERGENCY ROOM VISIT NOTE ---
History Report prepared by Al: Halley Reese Under the Supervision of: Dr. Gaston Nava M.D. First contact with patient: 10:11 Chief Complaint: STROKE SYMPTOMS Stated Complaint: STROKE SYMPTOMS History of Present Illness The patient is a 86 year old female who presents to the Emergency Room with complaints of constant stroke-like symptoms beginning [employer] SALES [employer]. The patient's son-in- law last saw her acting normally around 10pm last night. He heard her get up to go to the bathroom once in the middle of the night. When he left for work this morning around 8am, the patient was sleeping on the couch as she typically does. He received a call from the comfort nurses around 9am. They had found the patient half on the couch and altered. She was unable to sit or stand. She had right-sided weakness. She was brought to the ED by ambulance for further evaluation. The patient is typically verbal and able to communicate normally. Her speech is garbled at this time and son-in-law has not been able to understand her. She has a history of a previous head bleed that occurred sometime last summer. Family states that she does not really have any deficits from that stroke. She was recently seen for fluid in her lungs and was placed on antibiotics at that time. 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 Review of Systems See HPI for pertinent positives & negatives. A total of 10 systems reviewed and were otherwise negative. Past Medical & Surgical Medical Problems: (1) A-fib (2) Coronary artery disease (3) TIA (transient ischemic attack) Surgical Problems: (1) S/P CABG x 3 Family History No pertinent family history Social History Smoking Status: Unknown if Ever Smoked Marital Status: Housing Status: lives with family Occupation Status: retired Current/Historical Medications Scheduled Aspirin (Aspirin Ec), 81 MG PO DAILY Bumetanide (Bumex), 1 MG PO UD Dextromethorphan-Guaifenesin (Mucinex Dm Maximum Streng), 1 TAB PO DAILY Diltiazem Hcl Coated Beads (Diltiazem Hcl Er), 120 MG PO HS Gabapentin (Neurontin), 100 MG PO AFTERNOON Gabapentin (Neurontin), 200 MG PO HS Isosorbide Mononitrate Ext Rel (Imdur Ext Rel), 30 MG PO QAM Levothyroxine Sodium (Synthroid), 150 MCG PO QAM Loratadine (Claritin), 10 MG PO DAILY Metoprolol Tartrate (Lopressor) (Lopressor), 12.5 MG PO BID Niacin (Niacin), 500 MG PO DAILY Ocuvite Preservision (Ocuvite Preservision), 1 TAB PO DAILY Potassium Chloride Microencaps (Potassium Chloride Er), 20 MEQ PO BID Scheduled PRN Acetaminophen W/ Codeine (Tylenol/Codeine #4), 1 TAB PO QID PRN for Pain Albuterol Sulfate (Proair Respiclick), 1 PUFF INH BID PRN for SOB/Wheezing Fluticasone Propionate (Nasal) (Flonase Allergy Relief Ch), 2 SPRAY ADRIENNE DAILY PRN for Allergies Coded Allergies: Amoxicillin (Unverified Allergy, Unknown, RASH,GI UPSET, 11/18/16) Cantaloupe (Unverified Allergy, Unknown, Itchiness, 11/18/16) Celery (Unverified Allergy, Unknown, ITCHINESS, 11/18/16) [place] (Unverified Allergy, Unknown, ITCHINESS, 11/18/16) Peanut (Unverified Allergy, Unknown, ITCHINESS, 11/18/16) Spinach (Unverified Allergy, Unknown, ITCHINESS, 11/18/16) Statins (Unverified Allergy, Unknown, RASH, GI UPSET, 11/18/16) Penicillins (Unverified Adverse Reaction, Intermediate, Diarrhea and vomiting, 11/18/16) Sulfamethoxazole w/Trimethoprim (Unverified Adverse Reaction, Intermediate , Diarrhea, vomiting, 11/18/16) Physical Exam Vital Signs Date Time Temp Pulse Resp B/P (MAP) Pulse Ox O2 Delivery O2 Flow Rate FiO2 11/18/16 14:11 57 18 173/85 95 Room Air 11/18/16 13:18 64 18 183/95 94 Room Air 11/18/16 12:57 56 11/18/16 11:27 56 18 150/95 95 Room Air 11/18/16 10:06 61 11/18/16 10:04 36.9 60 20 205/67 97 Room Air Physical Exam GENERAL: Patient is in no acute distress. HEENT: No acute trauma, normocephalic atraumatic, mucous membranes dry, no nasal congestion, no scleral icterus, PERRL. NECK: No stridor, no adenopathy, no meningismus, trachea is midline. LUNGS: Crackles to both lungs, more so on the left, no wheezing, breath sounds equal. HEART: 2/6 systolic murmur with a regular rate and rhythm. ABDOMEN: Soft, nontender, bowel sounds positive, no hernias, no peritonitis. EXTREMITIES: No cyanosis or edema, full range of motion of all the joints without pain or difficulty, no signs for acute trauma. NEUROLOGIC: Somnolent but awakes to voice, garbled speech, right facial droop, downgoing toes bilaterally. Follows commands. Right arm weak compared to left. SKIN: No rash, no jaundice, no diaphoresis. Medical Decision & Procedures ER Provider Diagnostic Interpretation: Radiology results as stated below per my review and radiologist interpretation: CT OF THE HEAD WITHOUT CONTRAST CLINICAL HISTORY: Stroke symptoms. COMPARISON STUDY: Head CT December 16, 2015. CT DOSE: 965.19 mGycm TECHNIQUE: Helical axial images of the head were obtained without IV contrast. Automated exposure control was utilized for the study. A dose lowering technique was utilized adhering to the principles of ALARA. FINDINGS: No acute intracranial hemorrhage, midline shift or mass effect is present. A small right frontal lobe infarct is new since head CT of December 16, 2015 and is best shown on image 22 of 32. Lacunar infarcts within the left aspect of the ino and left cerebellar hemisphere are new since prior head CT. White matter hypodensity suggests small vessel disease. Basilar cisterns are patent. There are no extra-axial collections. There are no significant calvarial abnormalities. Visualized portions of the sinuses and mastoid air cells are clear. IMPRESSION: 1. No acute intracranial hemorrhage or mass effect. 2. 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 These are new since head CT of December 16, 2015 and likely subacute to chronic. Electronically signed by: Live Trejo M.D. 11/18/2016 10:45 AM Dictated Date/Time: 11/18/2016 10:37 AM CHEST ONE VIEW PORTABLE CLINICAL HISTORY: Stroke COMPARISON STUDY: October 25, 2016 FINDINGS: The cardiac and mediastinal contours remain stable. There are postsurgical changes of a midline sternotomy. There is interstitial pulmonary fibrosis, similar to the prior study. There is no overt failure. There are no pleural effusions.[ IMPRESSION: Interstitial pulmonary fibrosis, similar to the prior study given the differences in technique. Electronically signed by: Jann Pena M.D. 11/18/2016 10:51 AM Dictated Date/Time: 11/18/2016 10:50 AM Laboratory Results 11/18/16 11:15 Red Blood Count 4.97, Mean Corpuscular Volume 95.0, Mean Corpuscular Hemoglobin 30.8, Mean Corpuscular Hemoglobin Concent 32.4, Mean Platelet Volume 9.9, Neutrophils (%) (Auto) 68.4, Lymphocytes (%) (Auto) 24.9, Monocytes (%) (Auto) 4.8, Eosinophils (%) (Auto) 1.4, Basophils (%) (Auto) 0.3, Neutrophils # (Auto) 9.51, Lymphocytes # (Auto) 3.47, Monocytes # (Auto) 0.67, Eosinophils # (Auto) 0.20, Basophils # (Auto) 0.04 11/18/16 11:15 Test 11/18/16 10:04 11/18/16 11:15 11/18/16 12:39 Urine Color YELLOW Urine Appearance CLEAR (CLEAR) Urine pH 7.0 (4.5-7.5) Urine Specific [place] 1.013 (1.000-1.030) Urine Protein NEG (NEG) Urine Glucose (UA) NEG (NEG) Urine Ketones NEG (NEG) Urine Occult Blood TRACE (NEG) Urine Nitrite NEG (NEG) Urine Bilirubin NEG (NEG) Urine Urobilinogen NEG (NEG) Urine Leukocyte Esterase NEG (NEG) Urine WBC (Auto) 0 /hpf (0-5) Urine RBC (Auto) 5-10 /hpf (0-4) Urine Hyaline Casts (Auto) 0 /lpf (0-5) Urine Epithelial Cells (Auto) 0-5 /lpf (0-5) Urine Bacteria (Auto) NEG (NEG) Urine Opiates Screen POS (NEG) Urine Methadone, Qualitative NEG (NEG) Urine Barbiturates NEG (NEG) Urine Phencyclidine (PCP) Level NEG (NEG) Ur Amphetamine/Methamphetamine NEG (NEG) MDMA (Ecstasy) Screen NEG (NEG) Urine Benzodiazepines Screen NEG (NEG) Urine Cocaine Metabolite NEG (NEG) Urine Marijuana (THC) NEG (NEG) White Blood Count 13.92 K/uL (4.8-10.8) Red Blood Count 4.97 M/uL (4.2-5.4) Hemoglobin 15.3 g/dL (12.0-16.0) Hematocrit 47.2 % (37-47) Mean Corpuscular Volume 95.0 fL (80-100) Mean Corpuscular Hemoglobin 30.8 pg (25-34) Mean Corpuscular Hemoglobin Concent 32.4 g/dl (32-36) Platelet Count 302 K/uL (130-400) Mean Platelet Volume 9.9 fL (7.4-10.4) Neutrophils (%) (Auto) 68.4 % Lymphocytes (%) (Auto) 24.9 % Monocytes (%) (Auto) 4.8 % Eosinophils (%) (Auto) 1.4 % Basophils (%) (Auto) 0.3 % Neutrophils # (Auto) 9.51 K/uL (1.4-6.5) Lymphocytes # (Auto) 3.47 K/uL (1.2-3.4) Monocytes # (Auto) 0.67 K/uL (0.11-0.59) Eosinophils # (Auto) 0.20 K/uL (0-0.5) Basophils # (Auto) 0.04 K/uL (0-0.2) RDW Standard Deviation 47.4 fL (36.4-46.3) RDW Coefficient of Variation 13.8 % (11.5-14.5) Immature Granulocyte % (Auto) 0.2 % Immature Granulocyte # (Auto) 0.03 K/uL (0.00-0.02) Anion Gap 8.0 mmol/L (3-11) Est Creatinine Clear Calc Drug Dose 32.9 ml/min Estimated GFR () 51.9 Estimated GFR (Non- 44.8 BUN/Creatinine Ratio 19.8 (10-20) Estimated Average Glucose 134 mg/dl Hemoglobin A1c 6.3 % (4.5-5.6) Calcium Level 9.9 mg/dl (8.5-10.1) Magnesium Level 2.1 mg/dl (1.8-2.4) Total Bilirubin 0.5 mg/dl (0.2-1) Direct Bilirubin 0.1 mg/dl (0-0.2) Aspartate Amino Transf (AST/SGOT) 22 U/L (15-37) Alanine Aminotransferase (ALT/SGPT) 17 U/L (12-78) Alkaline Phosphatase 129 U/L (45-117) Total Creatine Kinase 51 U/L (26-192) Creatine Kinase MB 0.5 ng/ml (0.5-3.6) Creatine Kinase MB Ratio 1.0 (0-3.0) Troponin I 0.040 ng/ml (0-0.045) Total Protein 8.4 gm/dl (6.4-8.2) Albumin 3.8 gm/dl (3.4-5.0) Thyroid Stimulating Hormone (TSH) 0.107 uIu/ml (0.300-4.500) Free Thyroxine 1.62 ng/dl (0.80-1.60) Prothrombin Time 11.4 SECONDS (9.0-12.0) Prothromb Time International Ratio 1.1 (0.9-1.1) Activated Partial Thromboplast Time 26.0 SECONDS (21.0-31.0) Partial Thromboplastin Ratio 1.0 Laboratory results reviewed by me. Medications Administered Medications (Trade) Dose Ordered Sig/Ysabel Route Start Time Stop Time Status Last Admin Dose Admin Sodium Chloride 250 ml @ 999 mls/hr Q16M STAT IV 11/18/16 10:20 11/18/16 10:35 DC 11/18/16 10:20 999 MLS/HR Sodium Chloride 1,000 ml @ 125 mls/hr Q8H STAT IV 11/18/16 10:20 11/18/16 18:19 11/18/16 10:20 125 MLS/HR ECG Indication: altered mental status Rate (beats per minute): 53 Rhythm: sinus bradycardia Findings: LBBB, no acute ischemic change, no ectopy ED Course 1011: The patient was evaluated in room B12B. A complete history and physical exam was performed. 1020: NSS 1000 ml @ 125 mls/hr IV, NSS 250 ml @ 999 mls/hr IV 1053: I updated the patient's family on her CT results. 1106: I spoke with Dr. العلي. We discussed the patients case. The patient will be evaluated by the [facility] for further management. 1125: I reassessed the patient at this time. She is resting comfortably. I discussed the results and treatment plan with the patient's family. I answered all pertaining questions that they had. They expressed understanding and verbalized agreement. Medical Decision Differential diagnoses includes CVA, intracranial bleeding, infection, dehydration, electrolyte imbalance, anemia, dysrhythmia, IA. There is a mild leukocytosis, this could be consistent with infection or just the stress of her presentation. There is no anemia. No significant electrolyte abnormality, kidney failure or hepatitis. The patient has thyroid testing consistent with the use of thyroid medications. There is no coagulopathy. Urinalysis does not show infection. Urine tox shows opiates only. Chest x-ray does not show pneumonia or CHF. Pulmonary fibrosis was seen. Brain CT shows subacute infarcts, no acute bleed or mass effect. EKG shows a sinus rhythm, no acute ischemia. The patient received IV saline. She is not a candidate for TPA as she is well out of the 3 hour window. The patient requires a hospital stay. She has suffered a stroke causing her right-sided symptoms. I expressed my findings to the son-in-law. I talked to case management. The on-call hospitalist was consulted. Medication Reconcilliation Current Medication List: was personally reviewed by me Blood Pressure Screening Patient's blood pressure: Elevated blood pressure Blood pressure disposition: Elevated BP felt to be situational Consults Time Called: 1103 Consulting Physician: Dr. العلي Returned Call: [address] العلي. We discussed the patients case. The patient will be evaluated by the [facility] for further management. Impression Primary Impression: CVA (cerebral vascular accident) Additional Impression: Change in mental status Scribe Attestation The scribe's documentation has been prepared under my direction and personally reviewed by me in its entirety. I confirm that the note above accurately reflects all work, treatment, procedures, and medical decision making performed by me. Departure Information Dispostion Being Evaluated By Hospitalist Referrals Britany Trejo M.D. (PCP) Patient Instructions My [facility] Stroke History Time Last Known Well 10pm yesterday Stroke t-PA Criteria Reviewed Does NOT meet criteria for t-PA Reason t-PA Not Given Treatment not indicated Problem Qualifiers Primary Impression: CVA (cerebral vascular accident) CVA mechanism: unspecified Qualified Codes: I63.9 - Cerebral infarction, unspecified Additional Impression: Change in mental status Altered mental status type: unspecified Qualified Codes: R41.82 - Altered mental status, unspecified
[2016-11-18 11:32] LABS: BASO % 0.3 %; BASO ABS # 0.04 K/uL (0-0.2); COMPLETE YES; EOS % 1.4 %; HEMATOCRIT 47.2 % (37-47); IG% 0.2 %; LYMPH % 24.9 %; LYMPH ABS # 3.47 K/uL (1.2-3.4); MEAN CORPUSCULAR HEMOGLOBIN 30.8 pg (25-34); MEAN CORPUSCULAR HGB CONC 32.4 g/dl (32-36); MEAN PLATELET VOLUME 9.9 fL (7.4-10.4); MONO % 4.8 %; NEUT % 68.4 %; PLATELET COUNT 302 K/uL (130-400); RED BLOOD COUNT 4.97 M/uL (4.2-5.4); WHITE BLOOD COUNT 13.92 K/uL (4.8-10.8)
[2016-11-18] MEDS ORDERED: SODIUM CHLORIDE 0.9% 1000ML 1,000 ML IV SCH (11:57)
[2016-11-18 11:58] LABS: BUN/CREATININE RATIO 19.8 (10-20); CALCIUM 9.9 mg/dl (8.5-10.1); CREATININE 1.1 mg/dl (0.60-1.20); MAGNESIUM 2.1 mg/dl (1.8-2.4); POTASSIUM 3.9 mmol/L (3.5-5.1)
[2016-11-18] MEDS ORDERED: ONDANSETRON INJ 2 MG/ML 2 ML VIAL IV PRN (12:00)
[2016-11-18] MEDS ORDERED: PHARMACIST DISCHARGE MED REC CONSULT PRN (12:00)
[2016-11-18 12:07] LABS: THYROID STIMULATING HORMONE 0.107 uIu/ml (0.300-4.500)
--- NOTE | 2016-11-18 12:27 | History and Physical ---
History & Physical Date & Time of Service: Nov 18, 2016 at 12:06 Chief Complaint: Stroke Symptoms Primary Care Physician: Britany Trejo M.D. History of Present Illness Source: patient, family (son in law) Pt is a 86 yo female who presents to the ER with complaints of unresponsiveness and right sided weakness this AM. Pt somnolent at this time and most of hx is obtained my son in law gerri whose home pt currently resides at. Per son in law, pt was acting normal last evening but this AM he received a call at work form one of the caretakers that she was slumped over on the couch with significant right sided weakness. Pt was unable to sit/stand and not able to converse as her speech was garbled. Pt has a hx of diastolic CHF, atrial fibrillation (not on AC due to recurrent falls), HTN, hypothyrodisim, pulm fibrosis, CAD. Past Medical/Surgical History Medical Problems: (1) A-fib Status: Chronic (2) Coronary artery disease Status: Chronic (3) TIA (transient ischemic attack) Status: Resolved Surgical Problems: (1) S/P CABG x 3 Status: Chronic Family History No pertinent family history Social History Smoking Status: Unknown if Ever Smoked Marital Status: Occupational Status: retired Allergies Coded Allergies: Amoxicillin (Unverified Allergy, Unknown, RASH,GI UPSET, 11/18/16) Cantaloupe (Unverified Allergy, Unknown, Itchiness, 11/18/16) Celery (Unverified Allergy, Unknown, ITCHINESS, 11/18/16) [place] (Unverified Allergy, Unknown, ITCHINESS, 11/18/16) Peanut (Unverified Allergy, Unknown, ITCHINESS, 11/18/16) Spinach (Unverified Allergy, Unknown, ITCHINESS, 11/18/16) Statins (Unverified Allergy, Unknown, RASH, GI UPSET, 11/18/16) Penicillins (Unverified Adverse Reaction, Intermediate, Diarrhea and vomiting, 11/18/16) Sulfamethoxazole w/Trimethoprim (Unverified Adverse Reaction, Intermediate , Diarrhea, vomiting, 11/18/16) Home Medications Scheduled Aspirin (Aspirin Ec), 81 MG PO DAILY Bumetanide (Bumex), 1 MG PO UD Dextromethorphan-Guaifenesin (Mucinex Dm Maximum Streng), 1 TAB PO DAILY Diltiazem Hcl Coated Beads (Diltiazem Hcl Er), 120 MG PO HS Gabapentin (Neurontin), 100 MG PO AFTERNOON Gabapentin (Neurontin), 200 MG PO HS Isosorbide Mononitrate Ext Rel (Imdur Ext Rel), 30 MG PO QAM Levothyroxine Sodium (Synthroid), 150 MCG PO QAM Loratadine (Claritin), 10 MG PO DAILY Metoprolol Tartrate (Lopressor) (Lopressor), 12.5 MG PO BID Niacin (Niacin), 500 MG PO DAILY Ocuvite Preservision (Ocuvite Preservision), 1 TAB PO DAILY Potassium Chloride Microencaps (Potassium Chloride Er), 20 MEQ PO BID Scheduled PRN Acetaminophen W/ Codeine (Tylenol/Codeine #4), 1 TAB PO QID PRN for Pain Albuterol Sulfate (Proair Respiclick), 1 PUFF INH BID PRN for SOB/Wheezing Fluticasone Propionate (Nasal) (Flonase Allergy Relief ), 2 SPRAY ADRIENNE DAILY PRN for Review of Systems Unable to obtain as pt is somnolent and speech is garbled Physical Exam Vital Signs Date Time Temp Pulse Resp B/P (MAP) Pulse Ox O2 Delivery O2 Flow Rate FiO2 11/18/16 11:27 56 18 150/95 95 Room Air 11/18/16 10:06 61 11/18/16 10:04 36.9 60 20 205/67 97 Room Air General Appearance: WD/WN, + mild distress Head: normocephalic, atraumatic Eyes: normal inspection, PERRL, sclerae normal, + pertinent finding (facial droop noted ) Neck: supple, no adenopathy, thyroid normal, no JVD Respiratory/Chest: chest non-tender, lungs clear, normal breath sounds Cardiovascular: regular rate, rhythm, no edema, no gallop, no JVD Abdomen/GI: normal bowel sounds, non tender, soft, no organomegaly Neurologic/Psych: + facial droop, + disoriented, + pertinent finding (unable to obtain as pt somnolent, reported to have right sided weakness) Skin: normal color, warm/dry, no rash Lymphatic: no adenopathy Diagnostics Laboratory Results Results Past 24 Hours Test 11/18/16 10:04 11/18/16 10:20 11/18/16 11:15 11/18/16 11:57 Range/Units Urine Color YELLOW Urine Appearance CLEAR CLEAR Urine pH 7.0 4.5-7.5 Urine Specific [place] 1.013 1.000-1.030 Urine Protein NEG NEG Urine Glucose (UA) NEG NEG Urine Ketones NEG NEG Urine Occult Blood TRACE NEG Urine Nitrite NEG NEG Urine Bilirubin NEG NEG Urine Urobilinogen NEG NEG Urine Leukocyte Esterase NEG NEG Urine WBC (Auto) 0 0-5 /hpf Urine RBC (Auto) 5-10 0-4 /hpf Urine Hyaline Casts (Auto) 0 0-5 /lpf Urine Epithelial Cells (Auto) 0-5 0-5 /lpf Urine Bacteria (Auto) NEG NEG Urine Opiates Screen POS NEG Urine Methadone, Qualitative NEG NEG Urine Barbiturates NEG NEG Urine Phencyclidine (PCP) Level NEG NEG Ur Amphetamine/Methamphetamine NEG NEG MDMA (Ecstasy) Screen NEG NEG Urine Benzodiazepines Screen NEG NEG Urine Cocaine Metabolite NEG NEG Urine Marijuana (THC) NEG NEG Creatine Kinase MB Ratio 0-3.0 White Blood Count 13.92 4.8-10.8 K/uL Red Blood Count 4.97 4.2-5.4 M/uL Hemoglobin 15.3 12.0-16.0 g/dL Hematocrit 47.2 37-47 % Mean Corpuscular Volume 95.0 80-100 fL Mean Corpuscular Hemoglobin 30.8 25-34 pg Mean Corpuscular Hemoglobin Concent 32.4 32-36 g/dl Platelet Count 302 130-400 K/uL Mean Platelet Volume 9.9 7.4-10.4 fL Neutrophils (%) (Auto) 68.4 % Lymphocytes (%) (Auto) 24.9 % Monocytes (%) (Auto) 4.8 % Eosinophils (%) (Auto) 1.4 % Basophils (%) (Auto) 0.3 % Neutrophils # (Auto) 9.51 1.4-6.5 K/uL Lymphocytes # (Auto) 3.47 1.2-3.4 K/uL Monocytes # (Auto) 0.67 0.11-0.59 K/uL Eosinophils # (Auto) 0.20 0-0.5 K/uL Basophils # (Auto) 0.04 0-0.2 K/uL RDW Standard Deviation 47.4 36.4-46.3 fL RDW Coefficient of Variation 13.8 11.5-14.5 % Immature Granulocyte % (Auto) 0.2 % Immature Granulocyte # (Auto) 0.03 0.00-0.02 K/uL Sodium Level 141 136-145 mmol/L Potassium Level 3.9 3.5-5.1 mmol/L Chloride Level 105 98-107 mmol/L Carbon Dioxide Level 28 21-32 mmol/L Anion Gap 8.0 3-11 mmol/L Blood Urea Nitrogen 22 7-18 mg/dl Creatinine 1.10 0.60-1.20 mg/dl Est Creatinine Clear Calc Drug Dose 32.9 ml/min Estimated GFR () 51.9 Estimated GFR (Non- 44.8 BUN/Creatinine Ratio 19.8 10-20 Random Glucose 125 70-99 mg/dl Calcium Level 9.9 8.5-10.1 mg/dl Magnesium Level 2.1 1.8-2.4 mg/dl Direct Bilirubin 0.1 0-0.2 mg/dl Alanine Aminotransferase (ALT/SGPT) 17 12-78 U/L Albumin 3.8 3.4-5.0 gm/dl Impression Assessment and Plan CVA likely subacute to chronic per CT head (Small age indeterminate right frontal lobe infarct and age indeterminate lacunar infarcts within the left ino and left cerebellar hemisphere) Will admit to tele at this time. Obtain MRI head, MRA head/neck. Start on ASA, statin. Consult PT/OT and obtain speech eval. Consult neurology at this time. Obtain ECHO. Pt son-in-law, neurosurgeon cleared pt to be on AC (recent subdural hemorrhage). Keep NPO a this time with neurochecks q 4 hrs. HTN, uncontrolled at this time but will keep elevated due to permissive HTN. Hydralazine 10mg IV q hrs PRN sys>220 or vj>110 Chronic diastolic CHF, repeat ECHO with hx of stroke and atrial fibrillation. Hold bumex as pt is currently more hypovolemic Chronic interstitial lung disease exacerbation. No acute component at this time. Duonebs q hr PRN Hypothyroidism. Continue her Synthroid IV at this time. Pt kept NPO Atrial fibrillation. Currently in NSR. Pt currently NPO and bradycardic, hold metroprolol at this time. She is not on anticoagulation because of frequent falls and recent subdural. Coronary disease, CABG x 3, stable at this time, trend trops Deep venous thrombosis prophylaxis, heparin SC, hx of subdural hemorrhage, family reports that neurosurgeon states ok to go back on AC a this time Neurosurgeon is Dr Weston in [place].
[2016-11-18] MEDS ORDERED: ALBUT/IPRATROP 3MG/0.5MG NEB 3 ML VIAL INH PRN (12:30)
[2016-11-18 13:12] LABS: ESTIMATED AVERAGE GLUCOSE 134 mg/dl; HA1C FLAG Normal (Normal)
[2016-11-18 13:16] LABS: INR 1.1 (0.9-1.1); PROTHROMBIN TIME (PATIENT) 11.4 SECONDS (9.0-12.0)
[2016-11-18 15:08] VITALS: BP 170/105; PULSE 65; TEMP 36.9; O2SAT 92
[2016-11-18 17:06] VITALS: O2SAT 92; Ht 157.5 cm; Wt 72.7 kg
--- NOTE | 2016-11-18 17:11 | ECHOCARDIOGRAM REPORT ---
*NOTICE TO RECEIVING CONSTITUTION PARTY AGENCY This information is strictly Confidential and protected under [place] law. [place] law prohibits you from making any further disclosure of this information unless further disclosure is expressly permitted by the written consent of the person to whom it pertains or is authorized by law. A general authorization for the release of medical or other information is not sufficient for this purpose. Hospital accepts no responsibility if the information is made available to any other person, INCLUDING THE PATIENT. Interpretation Summary * Name: TORREY ZAIDI Study Date: 11/18/2016 03:24 PM BP: 150/95 mmHg * Patient Location: C.2T\S\S240\S\2 HR: 56 * : 1930 (M/d/yyyy) Gender: Female Height: 62 in * Age: 86 yrs Ethnicity: CA Weight: 159 lb * Ordering Physician: Shayan العلي * Referring Physician: Self, Referred * Performed By: Amira Stallings RDCS * * Reason For Study: Stroke * BSA: 1.7 m2 * -- Conclusions -- * Left ventricular systolic function is normal. * No regional wall motion abnormalities noted. * Ejection Fraction = 60-65%. * Aortic valve sclerosis moderate, without significant aortic valvular stenosis. * There is mild mitral regurgitation. * There is mild tricuspid regurgitation. * Injection of contrast documented no interatrial shunt. Procedure Details * A complete two-dimensional transthoracic echocardiogram was performed (2D, M-mode, Doppler and color flow Doppler). * The study was technically difficult. * There were technical limitations due to patient'spoor positioning * A saline contrast injection was performed to assess for cardiac shunting. * The injection was performed through an intravenous line in the left arm. * The attending nurse who injected the saline contrast was Zohreh Figueroa RN. * A total of 20 cc of agitated saline was given. * A contrast injection of Definity was performed to improve assessment of LV function. * Contrast was injected into an intravenous site in the left arm. * One vial of Definity ultrasound contrast was diluted in normal saline to a total volume of 10 ml. A total of '2' ml of solution was administered during imaging. * Lot # [id number] of Definity utilized for procedure. * Expiration date DEC 17. * The attending nurse who injected the contrast agent was Zohreh Figueroa RN. Left Ventricle * The left ventricle is normal in size. * There is normal left ventricular wall thickness. * Ejection Fraction = 60-65%. * Left ventricular systolic function is normal. * No regional wall motion abnormalities noted. Right Ventricle * The right ventricle is not well visualized. * The right ventricular systolic function is reduced as assessed by tricuspid annular plane systolic excursion (TAPSE) (TAPSE <1.6 cm). Atria * The left atrium is moderately dilated. * Right atrium not well visualized. * Injection of contrast documented no interatrial shunt. Mitral Valve * The mitral valve is grossly normal. * There is no mitral valve stenosis. * There is mild mitral regurgitation. Tricuspid Valve * The tricuspid valve is not well visualized, but is grossly normal. * There is no tricuspid stenosis. * There is mild tricuspid regurgitation. Aortic Valve * The aortic valve is not well visualized. * The aortic valve opens well. * Aortic valve sclerosis moderate, without significant aortic valvular stenosis. * Trace aortic regurgitation. Pulmonic Valve * The pulmonary valve is not well seen, but the Doppler examination is normal without significant regurgitation or stenosis. Great Vessels * The aortic root is normal size. Pericardium/Pleural * There is no pericardial effusion. Great Vessels * Normal inferior vena cava size and collapsability with sniff indicates a normal right atrial pressure of 3 mmHg MMode 2D Measurements and Calculations IVSd 1.0 cm LVIDd 4.1 cm LVIDs 2.6 cm LVPWd 1.1 cm IVS/LVPW 0.95 FS 35.1 % EDV(Teich) 73.0 ml ESV(Teich) 25.7 ml EF(Teich) 64.9 % EDV(cubed) 67.5 ml ESV(cubed) 18.5 ml EF(cubed) 72.6 % LV mass(C)d 138.3 grams LV mass(C)dI 79.8 grams/m\S\2 SV(Teich) 47.4 ml SI(Teich) 27.3 ml/m\S\2 SV(cubed) 49.0 ml SI(cubed) 28.3 ml/m\S\2 Ao root diam 2.6 cm Ao root area 5.4 cm\S\2 ACS 1.3 cm LA dimension 2.9 cm asc Aorta Diam 2.5 cm LA/Ao 1.1 LVOT diam 2.0 cm LVOT area 3.2 cm\S\2 LVAd ap4 20.9 cm\S\2 LVLd ap4 6.0 cm EDV(MOD-sp4) 57.4 ml EDV(sp4-el) 62.0 ml LVAs ap4 11.2 cm\S\2 LVLs ap4 4.6 cm ESV(MOD-sp4) 21.6 ml ESV(sp4-el) 23.2 ml EF(MOD-sp4) 62.4 % EF(sp4-el) 62.5 % LVAd ap2 20.3 cm\S\2 LVLd ap2 5.8 cm EDV(MOD-sp2) 57.6 ml EDV(sp2-el) 60.7 ml LVAs ap2 10.7 cm\S\2 LVLs ap2 4.6 cm ESV(MOD-sp2) 20.6 ml ESV(sp2-el) 21.4 ml EF(MOD-sp2) 64.3 % EF(sp2-el) 64.8 % LVLd %diff -3.83 % EDV(MOD-bp) 58.6 ml LVLs %diff 0.74 % ESV(MOD-bp) 21.0 ml EF(MOD-bp) 64.1 % SV(MOD-sp4) 35.8 ml SI(MOD-sp4) 20.7 ml/m\S\2 SV(MOD-sp2) 37.0 ml SI(MOD-sp2) 21.4 ml/m\S\2 SV(MOD-bp) 37.5 ml SI(MOD-bp) 21.7 ml/m\S\2 SV(sp4-el) 38.7 ml SI(sp4-el) 22.3 ml/m\S\2 SV(sp2-el) 39.3 ml SI(sp2-el) 22.7 ml/m\S\2 Doppler Measurements and Calculations MV E max jada 103.3 cm/sec MV A max jada 102.8 cm/sec MV E/A 1.0 MV dec time 0.20 sec Ao V2 max 145.4 cm/sec Ao max PG 8.5 mmHg Ao max PG (full) 5.1 mmHg FRANCISCO(V,A) 2.0 cm\S\2 FRANCISCO(V,D) 2.0 cm\S\2 AI max jada 125.1 cm/sec AI max PG 6.3 mmHg AI dec slope 45.6 cm/sec\S\2 AI P1/2t 803.0 msec LV V1 max PG 3.4 mmHg LV V1 max 92.2 cm/sec PA V2 max 111.3 cm/sec PA max PG 5.0 mmHg PA acc slope 964.3 cm/sec\S\2 PA acc time 0.05 sec TR max jada 309.5 cm/sec PA pr(Accel) 56.8 mmHg
[2016-11-18 19:24] VITALS: BP 189/80; PULSE 73; TEMP 37; O2SAT 98
[2016-11-18] MEDS ORDERED: NURSING VERBAL MED ORDER ONE ×2 (20:00→23:00)
--- NOTE | 2016-11-18 21:37 | DIAGNOSTIC IMAGING REPORT ---
ORBITS FOR MRI HISTORY: Pre-MRI pre-MRI screening. COMPARISON: None. FINDINGS: There are no radiopaque foreign bodies identified within the orbits. IMPRESSION: No radiopaque foreign bodies identified within the orbits. The above report was generated using voice recognition software. It may contain grammatical, syntax or spelling errors. Electronically signed by: Cristi Sawyer M.D. 11/18/2016 9:36 PM Dictated Date/Time: 11/18/2016 9:36 PM
--- NOTE | 2016-11-18 22:22 | DIAGNOSTIC IMAGING REPORT ---
MRA HEAD WITHOUT CONTRAST HISTORY: Stroke Stroke - Attention to [facility] [place] TECHNIQUE: 3-D [id number] MRA of the brain was performed without contrast. COMPARISON STUDY: None. FINDINGS: ,] Limited Exam due to patient motion. Both vertebral vessels are patent. High-grade stenosis distal right vertebral vessel. An attenuated left posterior cerebral vessels fed via the left posterior communicator. The right Posterior cerebral is severely attenuated. The left internal carotid artery appears occluded. Multifocal high-grade stenotic changes of the middle cerebral circulation bilaterally. This process more prominent on the right Severely attenuated origin of the anterior cerebral vessels bilaterally. Compromised flow to the anterior circulation. IMPRESSION: 1. Severely limited exam due to patient motion. 2. Complete occlusion left internal carotid artery. 3. High-grade stenosis distal right vertebral vessel with severe attenuation of flow to the right and to a lesser extent left posterior cerebral vessel. 4. Multifocal high-grade stenotic changes of the middle cerebral vessels bilaterally although this is considered more prominent on the right. 5. Severely attenuated origin and dampened flow to the anterior cerebral vessels bilaterally The above report was generated using voice recognition software. It may contain grammatical, syntax or spelling errors. Electronically signed by: Cristi Sawyer M.D. 11/18/2016 10:21 PM Dictated Date/Time: 11/18/2016 10:15 PM
[2016-11-18] MEDS ORDERED: GADAVIST IV PRN (22:30)
--- NOTE | 2016-11-18 22:34 | DIAGNOSTIC IMAGING REPORT ---
BRAIN COMBO CLINICAL HISTORY: Stroke mental status change COMPARISON STUDY: No previous studies for comparison. TECHNIQUE: Utilizing a 1.5 Jessie magnet and dedicated coil, multiplanar, multiecho imaging of the brain was performed pre and postcontrast administration. IV administration of 8.5 mL of Gadavist contrast was uneventful. FINDINGS: Severe the exam technically due to patient motion. Acute infarcts of the left frontal lobe, a small cortical component of the left occipital lobe, as well as several linear foci of acute ischemic change of the left inferior cerebellum. Findings of generalized cerebral atrophy. Considerable age-related chronic small vessel change. Probable occlusion left internal carotid artery. Chronic small vessel change involving the pontine medullary region. The system is midline. IMPRESSION: 1. Severely limited exam due to patient motion. 2. Generalized atrophy and considerable chronic small vessel change. 3. Small acute infarct left frontal lobe, probable small focus of left occipital lobe, as well as inferior left cerebellum. 4. Probable occlusion left internal carotid artery The above report was generated using voice recognition software. It may contain grammatical, syntax or spelling errors. Electronically signed by: Cristi Sawyer M.D. 11/18/2016 10:33 PM Dictated Date/Time: 11/18/2016 10:31 PM
--- NOTE | 2016-11-18 22:37 | DIAGNOSTIC IMAGING REPORT ---
MRA NECK COMBO HISTORY: Mental status change Stroke TECHNIQUE: [id number] and gadolinium-enhanced MRA of the neck was performed both before and after the intravenous administration of contrast. All measurements were calculated based on NASCET criteria. COMPARISON STUDY: None. FINDINGS: Compromised study due to patient's inability to cooperate. Apparent occlusion left internal/common carotid artery. Moderate multi level arterial occlusive change of the vertebral basilar system. Mild left ischemic change right carotid bifurcation with no significant stenotic process on that system. Origin of vessels is now well evaluated due to patient motion. IMPRESSION: 1. Limited study due to patient motion. 2. Occlusion left internal/common carotid artery. 3. Moderate atherosclerotic change of vertebral basilar system. 4. Mild atherosclerotic change right carotid bifurcation The above report was generated using voice recognition software. It may contain grammatical, syntax or spelling errors. Electronically signed by: Cristi Sawyer M.D. 11/18/2016 10:35 PM Dictated Date/Time: 11/18/2016 10:33 PM
[2016-11-18] MEDS ORDERED: FUROSEMIDE INJ 20 MG in SYRINGE 0 ML IV STA (22:53)
[2016-11-18 23:02] VITALS: BP 187/68; PULSE 64; TEMP 37.2; O2SAT 93
[2016-11-19] VITALS (13 sets, daily range): BP systolic 125–198; BP diastolic 68–120; PULSE 64–141; TEMP 36.9–37.6; O2SAT 93–98
--- NOTE | 2016-11-19 00:40 | Progress Note ---
Progress Note Date of Service Nov 19, 2016. Progress Note Updated family on pt's events since they arrived around 12am Told them overall plan, answered multiple questions. Their overall goal for her is comfort if rehab potential is limited. Pt not for feeding tube. Will likely require placement. Discussed pts code status - pt is NOT FOR CARDIAC RESUSCITATION but would want to be intubated if had a reversible cause. Will defer to day team to determine if level 2 is correct / appropriate.
[2016-11-19 07:45] LABS: BASO % 0.1 %; BASO ABS # 0.02 K/uL (0-0.2); COMPLETE YES; HEMATOCRIT 44.5 % (37-47); IG% 0.4 %; LYMPH % 29.7 %; LYMPH ABS # 4.51 K/uL (1.2-3.4); MEAN CELL VOLUME 93.9 fL (80-100); MEAN CORPUSCULAR HEMOGLOBIN 31.6 pg (25-34); MEAN CORPUSCULAR HGB CONC 33.7 g/dl (32-36); MEAN PLATELET VOLUME 9.7 fL (7.4-10.4); NEUT % 61.8 %; PLATELET COUNT 273 K/uL (130-400); RED BLOOD COUNT 4.74 M/uL (4.2-5.4); WHITE BLOOD COUNT 15.17 K/uL (4.8-10.8)
[2016-11-19] MEDS: LEVOTHYROXINE SODIUM INJ 75 MCG in SYRINGE 0 ML IV SCH (08:23)
--- NOTE | 2016-11-19 08:29 | Hospitalist Progress Note ---
Hospitalist Progress Note Date of Service Nov 19, 2016. (Meghan Garibay PA-C) Subjective Pt evaluation today including: conversation w/ family, physical exam, chart review, lab review, review of studies Pain: Appears comfortable PO Intake: NPO The patient was seen and examined this morning. Pts daughters are present at bedside. They report that her mom appears comfortable. Long discussion was held regarding CODE STATUS. Family indicates that her living will is a DO NOT RESUSCITATE. They would allow intubation for breathing support, IV fluids, antibiotics if it was necessary, however in the case of code intubation would not be something that they would want. Family reports a history of 2 bouts of pneumonia which required hospitalization earlier this year and at this time is where they decided intubation for respiratory distress would be reasonable. Additional Comments: ROS unobtainable due to patient's AMS, status post stroke. (Meghan Garibay PA-C) Objective Vital Signs Date Time Temp Pulse Resp B/P (MAP) Pulse Ox O2 Delivery O2 Flow Rate FiO2 11/19/16 08:00 37.0 86 18 162/68 (99) 96 11/19/16 04:00 Room Air 11/19/16 03:15 37.0 64 18 160/76 (104) 96 Room Air 11/19/16 00:01 Room Air 11/18/16 23:02 37.2 64 16 187/68 (107) 93 Room Air 11/18/16 20:00 Room Air 11/18/16 19:24 37.0 73 18 189/80 (116) 98 Room Air 11/18/16 17:06 92 Room Air 11/18/16 15:08 36.9 65 16 170/105 (126) 92 11/18/16 14:11 57 18 173/85 95 Room Air 11/18/16 13:18 64 18 183/95 94 Room Air 11/18/16 12:57 56 11/18/16 11:27 56 18 150/95 95 Room Air 11/18/16 10:06 61 11/18/16 10:04 36.9 60 20 205/67 97 Room Air (Meghan Garibay PA-C) Physical Exam Notes: General: awake, alert, no apparent distress, +appears comfortable Head: Normocephalic, atraumatic, + right sided facial droop, + right side neglect ENT: PERRL, EOMI, + thick posterior pharynx secretions, mucous membranes moist Chest: Clear to auscultation, on room air, no adventitious breath sounds Cardiac: Regular rate and rhythm, no murmur, no JVD, normal peripheral pulses, good capillary refill Abdominal: NABS x 4 quadrants, soft, nontender to palpation, no rebound, guarding or tenderness Extremities: Normal inspection, no peripheral edema or erythema, calfs nontender to palpation Psych: Normal mood and affect Neuro: awake, aphasic, 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 Moves left upper extremity to reach for daughters hand. (Meghan Garibay, MELY) Laboratory Results Last 24 Hours Test 11/18/16 10:04 11/18/16 10:20 11/18/16 11:15 11/18/16 12:39 Urine Color YELLOW Urine Appearance CLEAR Urine pH 7.0 Urine Specific [place] 1.013 Urine Protein NEG Urine Glucose (UA) NEG Urine Ketones NEG Urine Occult Blood TRACE Urine Nitrite NEG Urine Bilirubin NEG Urine Urobilinogen NEG Urine Leukocyte Esterase NEG Urine WBC (Auto) 0 /hpf Urine RBC (Auto) 5-10 /hpf Urine Hyaline Casts (Auto) 0 /lpf Urine Epithelial Cells (Auto) 0-5 /lpf Urine Bacteria (Auto) NEG Urine Opiates Screen POS Urine Methadone, Qualitative NEG Urine Barbiturates NEG Urine Phencyclidine (PCP) Level NEG Ur Amphetamine/Methamphetamine NEG MDMA (Ecstasy) Screen NEG Urine Benzodiazepines Screen NEG Urine Cocaine Metabolite NEG Urine Marijuana (THC) NEG Creatine Kinase MB Ratio 1.0 White Blood Count 13.92 K/uL Red Blood Count 4.97 M/uL Hemoglobin 15.3 g/dL Hematocrit 47.2 % Mean Corpuscular Volume 95.0 fL Mean Corpuscular Hemoglobin 30.8 pg Mean Corpuscular Hemoglobin Concent 32.4 g/dl Platelet Count 302 K/uL Mean Platelet Volume 9.9 fL Neutrophils (%) (Auto) 68.4 % Lymphocytes (%) (Auto) 24.9 % Monocytes (%) (Auto) 4.8 % Eosinophils (%) (Auto) 1.4 % Basophils (%) (Auto) 0.3 % Neutrophils # (Auto) 9.51 K/uL Lymphocytes # (Auto) 3.47 K/uL Monocytes # (Auto) 0.67 K/uL Eosinophils # (Auto) 0.20 K/uL Basophils # (Auto) 0.04 K/uL RDW Standard Deviation 47.4 fL RDW Coefficient of Variation 13.8 % Immature Granulocyte % (Auto) 0.2 % Immature Granulocyte # (Auto) 0.03 K/uL Sodium Level 141 mmol/L Potassium Level 3.9 mmol/L Chloride Level 105 mmol/L Carbon Dioxide Level 28 mmol/L Anion Gap 8.0 mmol/L Blood Urea Nitrogen 22 mg/dl Creatinine 1.10 mg/dl Est Creatinine Clear Calc Drug Dose 32.9 ml/min Estimated GFR () 51.9 Estimated GFR (Non- 44.8 BUN/Creatinine Ratio 19.8 Random Glucose 125 mg/dl Estimated Average Glucose 134 mg/dl Hemoglobin A1c 6.3 % Calcium Level 9.9 mg/dl Magnesium Level 2.1 mg/dl Total Bilirubin 0.5 mg/dl Direct Bilirubin 0.1 mg/dl Aspartate Amino Transf (AST/SGOT) 22 U/L Alanine Aminotransferase (ALT/SGPT) 17 U/L Alkaline Phosphatase 129 U/L Total Creatine Kinase 51 U/L Creatine Kinase MB 0.5 ng/ml Troponin I 0.040 ng/ml Total Protein 8.4 gm/dl Albumin 3.8 gm/dl Thyroid Stimulating Hormone (TSH) 0.107 uIu/ml Free Thyroxine 1.62 ng/dl Prothrombin Time 11.4 SECONDS Prothromb Time International Ratio 1.1 Activated Partial Thromboplast Time 26.0 SECONDS Partial Thromboplastin Ratio 1.0 Test 11/18/16 18:09 11/19/16 02:01 11/19/16 06:18 11/19/16 07:19 Troponin I 0.268 ng/ml 0.384 ng/ml Bedside Glucose 128 mg/dl White Blood Count 15.17 K/uL Red Blood Count 4.74 M/uL Hemoglobin 15.0 g/dL Hematocrit 44.5 % Mean Corpuscular Volume 93.9 fL Mean Corpuscular Hemoglobin 31.6 pg Mean Corpuscular Hemoglobin Concent 33.7 g/dl Platelet Count 273 K/uL Mean Platelet Volume 9.7 fL Neutrophils (%) (Auto) 61.8 % Lymphocytes (%) (Auto) 29.7 % Monocytes (%) (Auto) 8.0 % Eosinophils (%) (Auto) 0.0 % Basophils (%) (Auto) 0.1 % Neutrophils # (Auto) 9.37 K/uL Lymphocytes # (Auto) 4.51 K/uL Monocytes # (Auto) 1.21 K/uL Eosinophils # (Auto) 0.00 K/uL Basophils # (Auto) 0.02 K/uL RDW Standard Deviation 47.8 fL RDW Coefficient of Variation 13.9 % Immature Granulocyte % (Auto) 0.4 % Immature Granulocyte # (Auto) 0.06 K/uL (Meghan Garibay, MELY) Assessment and Plan 86 yo F with PMHX of 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 CVA likely subacute to chronic per CT head - Imaging reviewed (Small age indeterminate right frontal lobe infarct and age indeterminate lacunar infarcts within the left ino and left cerebellar hemisphere) this time. - Obtain MRI head, MRA head/neck. - Start on ASA, statin. - Consult neurology- appreciate recommendations - Consult PT/OT and obtain speech eval. - Echo complete- normal - Pt son-in-law, neurosurgeon - Dr. Weston from [place] cleared pt to be on AC (recent subdural hemorrhage). - NPO until speech therapy. - neurochecks q 4 hrs overnight Discussion regarding CODE STATUS was held with both daughters at bedside. They report the patient would not want resuscitation attempts, and that she has a living will stating DNR. The patient would want IV fluids, antibiotics, and breathing support including intubation for treatable causes like pneumonia. She had previously been hospitalized twice within the past year requiring additional support, including Bip[facility]. Her daughters admit that her state within the past year has significantly declined. The patient depends on her daughter' s for care, lives with one of the, and they also have paid home caregivers were present in the home when they are not available, although this is only for short periods of time. Otherwise she is fully supported by family members. HTN - uncontrolled at this time but will keep elevated due to permissive HTN. - Hydralazine 10mg IV q hrs PRN sys>220 or vj>110 Chronic diastolic CHF - repeat ECHO with hx of stroke and atrial fibrillation. - Hold bumex as pt is currently more hypovolemic Chronic interstitial lung disease exacerbation. - No acute component at this time. - Duonebs q hr PRN Hypothyroidism - Continue her Synthroid IV at this time. Atrial fibrillation - Currently in NSR. - Pt currently NPO and bradycardic, hold metroprolol at this time. - She is not on anticoagulation because of frequent falls and recent subdural. Coronary disease, CABG x 3, stable at this time, trend trops DVT ppx: heparin SC, teds CODE STATUS: DO NOT RESUSCITATE Disposition: Patient from home, lives with daughter, have caregivers on board for additional assistance. (Meghan Garibay, MELY) DOMINICK Physician Supervision Note: I interviewed and examined the patient. Discussed with Meghan Garibay PAC and agree with findings and plan as documented in the note. Any exceptions or clarifications are listed here: None Patient was seen in the presence of her daughters. She was lethargic and difficult to arouse. She had a speech screen which showed her to have a limited gag reflex but able to swallow. She was being fed ice chips by her daughter this afternoon had a choking episode. We'll return her to more cautious feeding at this time. His line her vital signs are stable however her mental state is lethargic Her cardiac exam is regular without murmurs her lungs are clear without wheezes she does have some upper airway breath sounds present she has a elevated Babinski on the right flexural spots on the left Subacute stroke elevated troponin with a history of previous stroke in her sugar hemorrhage left internal carotid artery occlusion seen on imaging echocardiogram negative no evidence of atrial fibrillation concurrently Continue antiplatelet therapy and statin therapy as well as permissive hypertension and blood pressure control Discussion of atrial fibrillation, this is recorded as a historical facts the only record I can see of atrial fibrillation is SVT but not A. fib and any of the recorded EKGs. Neurology has recommended anticoagulation for atrial fibrillation we will pursue this however further verification by her family would be warranted before starting anticoagulation if none can be attained perhaps an outpatient multi day event monitor could be applied to confirm or refute paroxysmal atrial fibrillation Documented By: Harvinder Allen (Harvinder Allen M.D.)
[2016-11-19 08:35] LABS: BUN/CREATININE RATIO 18.2 (10-20); CHOLESTEROL/HDL RATIO 5.1; CREATININE 0.96 mg/dl (0.60-1.20); POTASSIUM 3.3 mmol/L (3.5-5.1)
[2016-11-19] MEDS ORDERED: ASPIRIN 81 MG ECTAB PO SCH (09:00)
--- NOTE | 2016-11-19 09:14 | Neurology Consultation ---
Neurology Consultation Date of Consultation: Nov 19, 2016. Attending Physician: Harvinder Allen M.D. Primary Care Physician: Britany Trejo M.D. Reason for Consultation: Consultation for acute stroke History of Present Illness Source: patient, hospital records This is a 86-year-old female who presents with acute stroke like symptoms. According to family she was normal the evening before presentation. She was found the next morning by caregivers unresponsive and appeared to have right- sided weakness. Medical chart was reviewed. History limited secondary to mental status of the patient. No family is present at the time of this evaluation. The patient has known A. fib but was reportedly off anticoagulation secondary to recent fall and traumatic subdural hematoma. CT of the head was reviewed and there is no current hemorrhage or bleed. MRI of the brain report and images were reviewed by myself. Noted to have scattered T2 hyperintensities consistent with small vessel ischemic disease versus embolic ischemic disease. Patient has old right frontal, old left ino, and old left cerebellar lacunar infarcts. In addition has acute subacute left frontal, left occipital, and left cerebellum ischemic infarcts. MRA of the brain and neck were reviewed. Has complete occlusion of left ICA. Severe stenosis of the right vertebral. Multifocal stenosis of bilateral MCA's Echocardiogram was reviewed. Noted EF of 60-65%. Moderate aortic valve sclerosis Troponin noted to be elevated on labs Total cholesterol 286, LDL 203, HDL 56, triglycerides 133 Hemoglobin A1c 6.3 Past Medical/Surgical History Medical Problems: (1) Abrasion Status: Acute (2) Acute on chronic intracranial subdural hematoma Status: Acute (3) Atrial fibrillation with rapid ventricular response Status: Acute (4) Change in mental status Status: Acute (5) Contusion Status: Acute (6) CVA (cerebral vascular accident) Status: Acute (7) Fall Status: Acute (8) Fluid overload Status: Acute (9) Head injury Status: Acute (10) HTN (hypertension) Status: Acute (11) Subconjunctival hemorrhage Status: Acute (12) UTI (urinary tract infection) Status: Acute Diastolic CHF, A. fib, hypertension, hypothyroid, pulmonary fibrosis, CAD status post CABG, history of traumatic subdural hematoma from fall. Family History Family history not obtainable at this time due to mental status Social History Not obtainable due to mental status Marital Status: Housing Status: lives with family Occupation Status: retired Allergies Coded Allergies: Amoxicillin (Unverified Allergy, Unknown, RASH,GI UPSET, 11/18/16) Cantaloupe (Unverified Allergy, Unknown, Itchiness, 11/18/16) Celery (Unverified Allergy, Unknown, ITCHINESS, 11/18/16) Hamilton (Unverified Allergy, Unknown, ITCHINESS, 11/18/16) Peanut (Unverified Allergy, Unknown, ITCHINESS, 11/18/16) Spinach (Unverified Allergy, Unknown, ITCHINESS, 11/18/16) Statins (Unverified Allergy, Unknown, RASH, GI UPSET, 11/18/16) Penicillins (Unverified Adverse Reaction, Intermediate, Diarrhea and vomiting, 11/18/16) Sulfamethoxazole w/Trimethoprim (Unverified Adverse Reaction, Intermediate , Diarrhea, vomiting, 11/18/16) Current Inpatient Medications Current Inpatient Medications Medications (Trade) Dose Ordered Sig/Ysabel Route Start Time Stop Time Status Last Admin Dose Admin Miscellaneous Information (Pharmacist Discharge Med Rec Consult) 1 ea UD PRN N/A 11/18/16 12:00 12/18/16 11:59 Sodium Chloride 1,000 ml @ 50 mls/hr Q20H IV 11/18/16 11:57 12/18/16 11:56 Future Hold 11/18/16 17:30 50 MLS/HR Ondansetron HCl (Zofran Inj) 4 mg Q6H PRN IV 11/18/16 12:00 12/18/16 11:59 Hydralazine HCl (HydrALAZINE INJ) 10 mg Q4 PRN IV. 11/18/16 12:30 12/18/16 12:29 Levothyroxine Sodium 75 mcg/ Syringe 3.75 ml @ 2 mls/min DAILY@09 IV 11/19/16 09:00 12/19/16 08:59 11/19/16 08:23 2 MLS/MIN Albuterol/ Ipratropium (Duoneb) 3 ml Q4R PRN INH 11/18/16 12:30 12/18/16 12:29 Aspirin (Ecotrin Tab) 81 mg QAM PO 11/19/16 09:00 12/19/16 08:59 Gadobutrol (Gadavist) 7 mmol UD PRN IV 11/18/16 22:30 11/22/16 22:29 Review of Systems Complete review of systems not obtainable due to mental status Physical Exam Vital Signs (Past 24 Hrs): Date Time Temp Pulse Resp B/P (MAP) Pulse Ox O2 Delivery O2 Flow Rate FiO2 11/19/16 08:00 37.0 86 18 162/68 (99) 96 11/19/16 04:00 Room Air 11/19/16 03:15 37.0 64 18 160/76 (104) 96 Room Air 11/19/16 00:01 Room Air 11/18/16 23:02 37.2 64 16 187/68 (107) 93 Room Air 11/18/16 20:00 Room Air 11/18/16 19:24 37.0 73 18 189/80 (116) 98 Room Air 11/18/16 17:06 92 Room Air 11/18/16 15:08 36.9 65 16 170/105 (126) 92 11/18/16 14:11 57 18 173/85 95 Room Air 11/18/16 13:18 64 18 183/95 94 Room Air 11/18/16 12:57 56 11/18/16 11:27 56 18 150/95 95 Room Air 11/18/16 10:06 61 11/18/16 10:04 36.9 60 20 205/67 97 Room Air Gen.: Patient appears somewhat lethargic lying in bed in no acute distress HEENT: Normocephalic /atraumatic, no scleral icterus Heart: Regular rate and rhythm Extremities: No gross deformities or rashes noted Neurological examination: Mental status: Patient opens her eyes to voice. Does not follow commands. No speech produced. Cranial nerve: Visual gonsalez intact to confrontation. Funduscopic examination was limited but unremarkable. No papilledema. Pupils equally round and reactive to light. Extraocular muscles intact without nystagmus. Difficult to assess for facial weakness of the patient would not actively move her facial muscles. Difficult to tell whether facial sensation was intact to mental status. The rest of cranial nerves were difficult to obtain due to mental status Strength: Patient would spontaneously move her left arm and squeeze her left hand. Would wiggle her left toes and mildly move her left leg. There is no movement of the right arm or leg. Sensation: Grossly intact to light touch in all extremities. Suspect decreased sensation on the right side. Patient did well minimally withdrawal her right leg to detail bed pressure on the right Deep tendon reflexes: Deep tendon reflexes +2 on left biceps, brachioradialis, and patellar. +1 on right biceps, brachioradialis and patellar. Toes were upgoing on the right to plantar stimulation and downgoing on the left Coordination: Could not assess coordination due to mental status Station within the bed was normal Laboratory Results Past 24 Hours: 11/19/16 07:19 Red Blood Count 4.74, Mean Corpuscular Volume 93.9, Mean Corpuscular Hemoglobin 31.6, Mean Corpuscular Hemoglobin Concent 33.7, Mean Platelet Volume 9.7, Neutrophils (%) (Auto) 61.8, Lymphocytes (%) (Auto) 29.7, Monocytes (%) (Auto) 8.0, Eosinophils (%) (Auto) 0.0, Basophils (%) (Auto) 0.1, Neutrophils # (Auto) 9.37, Lymphocytes # (Auto) 4.51, Monocytes # (Auto) 1.21, Eosinophils # (Auto) 0.00, Basophils # (Auto) 0.02 11/19/16 07:19 Test 11/18/16 10:04 11/18/16 11:15 11/18/16 12:39 11/19/16 06:18 Urine Color YELLOW Urine Appearance CLEAR (CLEAR) Urine pH 7.0 (4.5-7.5) Urine Specific [place] 1.013 (1.000-1.030) Urine Protein NEG (NEG) Urine Glucose (UA) NEG (NEG) Urine Ketones NEG (NEG) Urine Occult Blood TRACE (NEG) Urine Nitrite NEG (NEG) Urine Bilirubin NEG (NEG) Urine Urobilinogen NEG (NEG) Urine Leukocyte Esterase NEG (NEG) Urine WBC (Auto) 0 /hpf (0-5) Urine RBC (Auto) 5-10 /hpf (0-4) Urine Hyaline Casts (Auto) 0 /lpf (0-5) Urine Epithelial Cells (Auto) 0-5 /lpf (0-5) Urine Bacteria (Auto) NEG (NEG) Urine Opiates Screen POS (NEG) Urine Methadone, Qualitative NEG (NEG) Urine Barbiturates NEG (NEG) Urine Phencyclidine (PCP) Level NEG (NEG) Ur Amphetamine/Methamphetamine NEG (NEG) MDMA (Ecstasy) Screen NEG (NEG) Urine Benzodiazepines Screen NEG (NEG) Urine Cocaine Metabolite NEG (NEG) Urine Marijuana (THC) NEG (NEG) Estimated Average Glucose 134 mg/dl Hemoglobin A1c 6.3 % (4.5-5.6) Magnesium Level 2.1 mg/dl (1.8-2.4) Total Bilirubin 0.5 mg/dl (0.2-1) Direct Bilirubin 0.1 mg/dl (0-0.2) Aspartate Amino Transf (AST/SGOT) 22 U/L (15-37) Alanine Aminotransferase (ALT/SGPT) 17 U/L (12-78) Alkaline Phosphatase 129 U/L (45-117) Total Creatine Kinase 51 U/L (26-192) Creatine Kinase MB 0.5 ng/ml (0.5-3.6) Creatine Kinase MB Ratio 1.0 (0-3.0) Total Protein 8.4 gm/dl (6.4-8.2) Albumin 3.8 gm/dl (3.4-5.0) Thyroid Stimulating Hormone (TSH) 0.107 uIu/ml (0.300-4.500) Free Thyroxine 1.62 ng/dl (0.80-1.60) Prothrombin Time 11.4 SECONDS (9.0-12.0) Prothromb Time International Ratio 1.1 (0.9-1.1) Activated Partial Thromboplast Time 26.0 SECONDS (21.0-31.0) Partial Thromboplastin Ratio 1.0 Bedside Glucose 128 mg/dl (70-90) Test 11/19/16 07:19 11/19/16 08:42 White Blood Count 15.17 K/uL (4.8-10.8) Red Blood Count 4.74 M/uL (4.2-5.4) Hemoglobin 15.0 g/dL (12.0-16.0) Hematocrit 44.5 % (37-47) Mean Corpuscular Volume 93.9 fL (80-100) Mean Corpuscular Hemoglobin 31.6 pg (25-34) Mean Corpuscular Hemoglobin Concent 33.7 g/dl (32-36) Platelet Count 273 K/uL (130-400) Mean Platelet Volume 9.7 fL (7.4-10.4) Neutrophils (%) (Auto) 61.8 % Lymphocytes (%) (Auto) 29.7 % Monocytes (%) (Auto) 8.0 % Eosinophils (%) (Auto) 0.0 % Basophils (%) (Auto) 0.1 % Neutrophils # (Auto) 9.37 K/uL (1.4-6.5) Lymphocytes # (Auto) 4.51 K/uL (1.2-3.4) Monocytes # (Auto) 1.21 K/uL (0.11-0.59) Eosinophils # (Auto) 0.00 K/uL (0-0.5) Basophils # (Auto) 0.02 K/uL (0-0.2) RDW Standard Deviation 47.8 fL (36.4-46.3) RDW Coefficient of Variation 13.9 % (11.5-14.5) Immature Granulocyte % (Auto) 0.4 % Immature Granulocyte # (Auto) 0.06 K/uL (0.00-0.02) Anion Gap 9.0 mmol/L (3-11) Est Creatinine Clear Calc Drug Dose 36.9 ml/min Estimated GFR () 61.2 Estimated GFR (Non- 52.8 BUN/Creatinine Ratio 18.2 (10-20) Calcium Level 10.0 mg/dl (8.5-10.1) Triglycerides Level 133 mg/dl (0-150) Cholesterol Level 286 mg/dl (0-200) HDL Cholesterol 56 mg/dl LDL Cholesterol, Calculated 203 mg/dl VLDL Cholesterol, Calculated 27 mg/dl Cholesterol/HDL Ratio 5.1 Imaging As noted above in history of present illness Impression This is a 86-year-old female with acute to subacute left frontal, left occipital , and left cerebellum ischemic strokes. Likely etiology cardioembolic due to A. fib not on anticoagulation due to recent traumatic subdural hematoma and fall. In addition patient has evidence of old right frontal, left ino, and left cerebellar ischemic strokes. Residual neurological deficits include right hemiplegia, global aphasia, cognitive deficits, likely left sensory deficits. Known stroke risk factors include A. fib, hypertension, dyslipidemia, history of previous strokes. Plan I recommend anticoagulation in the setting of A. fib for secondary stroke prevention. Patient is at high risk for additional strokes in the future not on anticoagulation. Fall risk alone is not a contraindication to anticoagulation. History of a traumatic subdural is also not contradicted indication to anticoagulation. Troponin trending and cardiac care per hospitalist team Patient absolutely needs a statin medication therapy for severe dyslipidemia. Follow-up PT/OT and speech therapies for discharge planning. Blood pressure recommendations while in hospital 175/95-150/80 Avoid hypotension and dehydration Stroke risk factor modifications and recommendations: Blood pressure recommendations for the first month post hospital discharge 150/ 90-130/80, and after that blood pressure recommendations 130/80-110/70 Total cholesterol goal 100- 200 and LDL goal less than 100 Hemoglobin A1c goal less than 7 Encourage exercise at least 3 times a week for 30 minutes. Follow-up in neurology clinic in 1 month for post stroke hospital follow-up. If there is any questions or concerns, feel free to call/page me.
--- NOTE | 2016-11-19 12:32 | Clinical Documentation Query ---
CLINICAL DOCUMENTATION QUERY QUERY 1 OF 2 Pt is a 86 yo female who presents to the ER with complaints of unresponsiveness and right sided weakness this AM. In your clinical opinion is this patient being managed for: (x ) Encephalopathy in the setting of CVA, present on admission ( ) Not Agree ( ) Other explanation of clinical findings (Please Explain) ( ) Unable to determine (Please Define) ( ) Need to Discuss The medical record reflects the following clinical findings, treatment, and risk factors. Clinical Indicators: documented altered mental status, lethargy Treatment: telemetry, neuro checks, CT, MRI, serial lab monitoring Risk Factors: CVA, age, subdural hematoma, A-fib Encephalopathy is a term for any diffuse disease of the brain that alters brain function or structure. There are many causes of encephalopathy including: advanced or severe disease states such as liver or kidney disease, infection, lack of oxygen to the brain, brain tumor or increased intracranial pressure, prolonged exposure to toxic substances including drug and alcohol abuse, trauma, poor nutrition and lack of adequate blood flow to the brain. 33-67% of all CABG patients develop post CABG encephalopathy. (Journal Watch Neurology, 12/2001) Depending on the type and severity of the encephalopathy, common neurological symptoms are progressive loss of memory and cognitive ability, subtle personality changes, poor concentration, lethargy, and progressive loss of consciousness. Other symptoms may include: myoclonus, nystagmus, tremor, muscle atrophy and weakness, dementia, seizures, and the loss of the ability to speak or swallow. The hallmark of encephalopathy is altered mental status. The diagnosis of encephalopathy may be based on history and physical examination, CBC, liver function tests, ammonia and blood glucose levels, lactate levels (often elevated d/t impaired tissue perfusion and decreased clearance by the liver), ABGs, kidney function tests, blood cultures, virology testing, neuro imaging studies, and US. QUERY 2 OF 2 In your clinical opinion is this patient being managed for: ( ) Acute diastolic CHF ( x) Not Agree ( ) Other explanation of clinical findings (Please Explain) ( ) Unable to determine (Please Define) ( ) Need to Discuss The medical record reflects the following clinical findings, treatment, and risk factors. Clinical Indicators: bilateral trace pitting edema, crackles lung sounds bilateral bases, increased BP Treatment: Lasix IV Risk Factors: Age, chronic diastolic CHF, HTN, Afib, CVA Please clarify and document your clinical opinion in the progress notes and discharge summary. Terms such as "probable", "suspected", "likely", "questionable", "possible", or "still to be ruled out" are acceptable. IF IN AGREEMENT, YOU MUST DOCUMENT ABOVE DIAGNOSTIC STATEMENT IN DAILY PROGRESS NOTES AND DISCHARGE SUMMARY. This document is not part of the patient's record. Thank You, Tarsha Champagne RN [phone]
[2016-11-19] MEDS ORDERED: DILTIAZEM HCL INJ 125 MG in DEXTROSE 5% 100ML IV PRN (17:45)
[2016-11-19] MEDS ORDERED: ENOXAPARIN 1 MG/KG SQ SCH (17:45)
[2016-11-19] MEDS ORDERED: DILTIAZEM BOLUS / DRIP IV STA (18:25)
--- NOTE | 2016-11-19 18:25 | Progress Note ---
Progress Note Date of Service Nov 19, 2016. Progress Note pt had an episode of choking on ice chips, then developed afib rvr, will start on diltiazem and lovenox, did a carotid massage manuver and showed it was afib
[2016-11-19] MEDS: SODIUM CHLORIDE 0.9% 1000ML 1,000 ML IV SCH (18:39)
[2016-11-19] MEDS: ENOXAPARIN 80 MG/0.8 ML SYR SQ SCH (18:46)
[2016-11-19] MEDS: DILTIAZEM HCL INJ 125 MG in DEXTROSE 5% 100ML 100 ML IV PRN (19:14)
[2016-11-19] MEDS ORDERED: DILTIAZEM HCL 5 MG/ML 5 ML VIAL IV ONE (20:15)
[2016-11-19] MEDS ORDERED: ROSUVASTATIN CALCIUM 10 MG TAB PO SCH (21:00)
[2016-11-20] VITALS (10 sets, daily range): BP systolic 121–187; BP diastolic 63–90; PULSE 56–141; TEMP 36.1–37.7; O2SAT 92–100
[2016-11-20] MEDS ORDERED: NURSING VERBAL MED ORDER ONE ×2 (01:30→05:15)
[2016-11-20] MEDS: SCOPOLAMINE 1.5 MG TDSY TD SCH (01:48)
[2016-11-20] MEDS: DILTIAZEM HCL INJ 125 MG in DEXTROSE 5% 100ML 100 ML IV PRN ×4 (04:57→09:22)
[2016-11-20] MEDS: METOPROLOL TARTRATE 1 MG/ML VIAL IV PRN (05:23)
[2016-11-20] MEDS: ENOXAPARIN 80 MG/0.8 ML SYR SQ SCH ×2 (05:24→18:04)
[2016-11-20 07:36] LABS: BASO % 0.2 %; BASO ABS # 0.03 K/uL (0-0.2); COMPLETE YES; HEMATOCRIT 43.6 % (37-47); IG% 0.4 %; MEAN CELL VOLUME 95.4 fL (80-100); MEAN CORPUSCULAR HEMOGLOBIN 31.9 pg (25-34); MEAN CORPUSCULAR HGB CONC 33.5 g/dl (32-36); MONO % 9.8 %; NEUT % 63.6 %; PLATELET COUNT 290 K/uL (130-400); RED BLOOD COUNT 4.57 M/uL (4.2-5.4); WHITE BLOOD COUNT 18.07 K/uL (4.8-10.8)
[2016-11-20] MEDS: CHECK SCOPOLAMINE PATCH PLACEMENT SCH ×3 (08:01→23:33)
[2016-11-20] MEDS: ASPIRIN 300 MG SUPP PR SCH (08:04)
[2016-11-20 08:12] LABS: BUN/CREATININE RATIO 18.1 (10-20); CALCIUM 9.6 mg/dl (8.5-10.1); CREATININE 0.93 mg/dl (0.60-1.20); POTASSIUM 2.9 mmol/L (3.5-5.1)
[2016-11-20] MEDS: SODIUM CHLORIDE 0.9% 1000ML 1,000 ML IV SCH ×3 (08:30→23:32)
[2016-11-20] MEDS: LEVOTHYROXINE SODIUM INJ 75 MCG in SYRINGE 0 ML IV SCH (08:31)
[2016-11-20 08:56] LABS: COD UR NEGATIVE NG/ML (CUTOFF=50); HYDROCOD UR NEGATIVE NG/ML (CUTOFF=50); HYDROMOR UR NEGATIVE NG/ML (CUTOFF=50); MORPHINE UR NEGATIVE NG/ML (CUTOFF=50); NORHYDROCODONE CONF UR NEGATIVE NG/ML (CUTOFF=50); OXYMORPH UR NEGATIVE NG/ML (CUTOFF=50)
--- NOTE | 2016-11-20 09:03 | Hospitalist Progress Note ---
Hospitalist Progress Note Date of Service Nov 20, 2016. (Meghan Garibay PA-C) Subjective Pt evaluation today including: conversation w/ family, physical exam, chart review, lab review, review of studies Voiding: ballard catheter in place Overnight events included pt choking on a piece of ice after speech therapy evaluation, and flipped into afib with RVR and started on a cardizem gtt and lovenox. Pt had low grade fever of 37.7 at 1600 yesterday. The patient was seen and examined this morning. Pt is minimally arousable to physical stimuli, asleep, and her two daughters Yaa and Floridalma are present at bedside. Plan to draw blood cultures with increased WBC to 18K, initiate zosyn for possible aspiration pneumonia with worsening and coarse breath sounds, checking a CXR, and repeat CT head with decreased arousability and minimal responsiveness. Discussion was held with the family regarding goals of care. Both daughters do not want aggressive measures if there is not an endpoint which would result in quality of life or return to her normal ADLs. We discussed yesterday that initiation of antibiotics, fluids, potassium replacement are ok. Will ask for palliative care consultation and they are in agreement with this. Additional Comments: ROS not obtainable due to encephalopathy. (Meghan Garibay, MELY) Objective Vital Signs Date Time Temp Pulse Resp B/P (MAP) Pulse Ox O2 Delivery O2 Flow Rate FiO2 11/20/16 08:00 36.1 70 18 158/68 (98) 93 Nasal Cannula 2.0 11/20/16 05:23 138 137/76 11/20/16 04:00 Nasal Cannula 2.0 11/20/16 04:00 37.7 141 22 142/69 (93) 92 Nasal Cannula 2.0 11/20/16 00:00 Nasal Cannula 1.0 11/20/16 00:00 Nasal Cannula 2.0 11/20/16 00:00 37.3 122 16 141/90 (107) 97 Nasal Cannula 2.0 11/19/16 23:15 127 16 141/92 (108) 95 Nasal Cannula 2.0 11/19/16 22:15 93 18 125/84 (98) 93 Nasal Cannula 2.0 11/19/16 21:15 110 16 146/77 (100) 95 Nasal Cannula 2.0 11/19/16 20:00 36.9 120 16 147/75 (99) 96 Nasal Cannula 2.0 11/19/16 20:00 Nasal Cannula 2.0 11/19/16 19:45 141/92 (108) 11/19/16 19:15 124 131/85 (100) 11/19/16 18:48 139 138/91 (107) 11/19/16 18:35 125 22 142/81 (101) 97 Nasal Cannula 2.0 11/19/16 18:00 141 169/106 (127) 11/19/16 17:25 37.4 131 198/120 (146) 98 Nasal Cannula 2.0 11/19/16 16:00 Room Air 11/19/16 15:30 37.6 67 20 189/73 (111) 94 Room Air 11/19/16 12:00 Room Air (Meghan Garibay PA-C) Physical Exam General Appearance: WD/WN, no apparent distress Eyes: PERRL, EOMI ENT: hearing grossly normal, pharynx normal, + pertinent finding (thick oral sections in posterior pharynx, MM dry.) Neck: supple, no JVD Respiratory/Chest: + pertinent finding (On 4 L via NC, coarse bronchial breath sounds throughout. ) Cardiovascular: regular rate, rhythm, no murmur, + pertinent finding (slightly bradycardic at HR=57 on cardizem gtt) Abdomen: normal bowel sounds, non tender, soft Extremities: non-tender, no pedal edema Neurologic/Psychiatric: + pertinent finding (asleep, minimally arousable to physical stimuli, does not awaken during exam or discussion with family. ) Skin: normal color, warm/dry (Meghan Garibay PA-C) Laboratory Results Last 24 Hours Test 11/19/16 11:26 11/19/16 16:13 11/20/16 07:01 11/20/16 07:02 Bedside Glucose 134 mg/dl Troponin I 0.394 ng/ml White Blood Count 18.07 K/uL Red Blood Count 4.57 M/uL Hemoglobin 14.6 g/dL Hematocrit 43.6 % Mean Corpuscular Volume 95.4 fL Mean Corpuscular Hemoglobin 31.9 pg Mean Corpuscular Hemoglobin Concent 33.5 g/dl Platelet Count 290 K/uL Mean Platelet Volume 10.0 fL Neutrophils (%) (Auto) 63.6 % Lymphocytes (%) (Auto) 26.0 % Monocytes (%) (Auto) 9.8 % Eosinophils (%) (Auto) 0.0 % Basophils (%) (Auto) 0.2 % Neutrophils # (Auto) 11.50 K/uL Lymphocytes # (Auto) 4.70 K/uL Monocytes # (Auto) 1.77 K/uL Eosinophils # (Auto) 0.00 K/uL Basophils # (Auto) 0.03 K/uL RDW Standard Deviation 49.7 fL RDW Coefficient of Variation 14.3 % Immature Granulocyte % (Auto) 0.4 % Immature Granulocyte # (Auto) 0.07 K/uL Sodium Level 147 mmol/L Potassium Level 2.9 mmol/L Chloride Level 110 mmol/L Carbon Dioxide Level 28 mmol/L Anion Gap 9.0 mmol/L Blood Urea Nitrogen 17 mg/dl Creatinine 0.93 mg/dl Est Creatinine Clear Calc Drug Dose 38.8 ml/min Estimated GFR () 63.6 Estimated GFR (Non- 54.9 BUN/Creatinine Ratio 18.1 Random Glucose 165 mg/dl Calcium Level 9.6 mg/dl (Meghan Garibay, PAAashishC) Assessment and Plan 86 yo F with PMHX of 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 Encephalopathy in the setting of CVA, present on admission - Imaging reviewed (Small age indeterminate right frontal lobe infarct and age indeterminate lacunar infarcts within the left ino and left cerebellar hemisphere) this time. - Repeat CT head today with decreased alertness - Was started on lovenox overnight but will hold until repeat CT head returned. - MRI head: Small acute infarct left frontal lobe, probable small focus of left occipital lobe, as well as inferior left cerebellum. - MRA head/neck: Complete occlusion left internal carotid artery. High-grade stenosis distal right vertebral vessel with severe attenuation of flow to the right and to a lesser extent left posterior cerebral vessel. Multifocal high- grade stenotic changes of the middle cerebral vessels bilaterally although this is considered more prominent on the right. Severely attenuated origin and dampened flow to the anterior cerebral vessels bilaterally - Cont on ASA, statin therapy. - PT/OT and obtain speech garret - re-eval as needed, keep NPO - Echo complete- normal - Pt son-in-law, neurosurgeon - Dr. Weston from [place] cleared pt to be on AC (recent subdural hemorrhage). Acute episode of choking overnight on Ice chips - Speech therapy assessment allowed for NPO and ice chips for comfort, although noted a delayed swallowing function. Since overnight events will keep the pt strict NPO for now and attempt retrial later. - ? aspiration pna? check BCx and zosyn Atrial fibrillation - Flipped into afib overnight after choking episode and was started on diltiazem gtt and lovenox. Will STOP both for now. - hold metroprolol at this time as NPO. IV lopressor ordered prn - Resumed lovenox overnight with afib and risk of CVA, HOLD for now until CT results back. Per neuro no contraindication to anticoagulation because of frequent falls and traumatic subdural hematoma. HTN - uncontrolled at this time but will keep elevated due to permissive HTN of 175 /95-150/80 allowed in hospital. - Blood pressure recommendations for the first month post hospital discharge 150 /90-130/80, and after that blood pressure recommendations 130/80-110/70 - Hydralazine 10mg IV q hrs PRN sys>220 or vj>110 Hx of Chronic diastolic CHF - repeat ECHO with hx of stroke and atrial fibrillation appears normal without abnormalities. - Hold bumex for now Chronic interstitial lung disease exacerbation. - Repeat CXR appears improved today compared to previous. Will start zosyn with possible aspiration pna. 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 - No acute component at this time. - Duonebs q hr PRN Hypothyroidism - Continue her Synthroid IV at this time. Coronary disease, CABG x 3, stable at this time, trend trops DVT ppx: heparin SC, teds CODE STATUS: DO NOT RESUSCITATE Disposition: Patient from home, lives with daughter, have caregivers on board for additional assistance, Palliative to see today. (Meghan Garibay, MELY) DOMINICK Physician Supervision Note: I interviewed and examined the patient. Discussed with Meghan Garibay PAC and agree with findings and plan as documented in the note. Any exceptions or clarifications are listed here: None Patient has markedly encephalopathy and is mostly obtunded today unclear etiologies seem to occur after choking episode 11/19 she then went into atrial fib RVR this was controlled and eventually converted with intravenous diltiazem reevaluation on 11/20 included a chest x-ray and a CT scan of her hair head without any significant changes however the patient's mental status continues to be obtunded Vital signs show her to be in sinus rhythm with a rate in the 70s blood pressure is reasonably controlled She does arouse to voice her eyes show equal pupils that are reviewed which are reactive she is not guarding her pharynx she isn't been made nothing by mouth her heart now is regular her lungs are with diminished breath sounds with poor effort Post stroke encephalopathy of undetermined origin likely metabolic versus subsequent to her previous stroke [place] patient be supported with intravenous fluids control of her heart rate intravenous medications aspirin be given per rectum was temporarily given some Lovenox during the atrial fibrillation this was held due to with concern for expansion or worsening of stroke. We will resume her Lovenox this evening however palliative care was involved and the patient does not improve by tomorrow morning we may pursue more palliative measures Documented By: Harvinder Allen (Harvinder Allen M.D.)
--- NOTE | 2016-11-20 09:36 | Neurology Progress Notes ---
Neurology Progress Note Date of Service Nov 20, 2016. Subjective Patient has been less responsive overnight and this morning. No new neurological deficits otherwise. Patient did have an episode of A. fib last night. Additional information given by the daughters is that the patient had a subdural hematoma a year ago and was cleared by her neurosurgeon for anticoagulation over a year ago, but was not placed on anticoagulation due to her PCP concern for fall risk. Objective Date Time Temp Pulse Resp B/P (MAP) Pulse Ox O2 Delivery O2 Flow Rate FiO2 11/20/16 08:00 36.1 70 18 158/68 (98) 93 Nasal Cannula 2.0 11/20/16 05:23 138 137/76 11/20/16 04:00 Nasal Cannula 2.0 11/20/16 04:00 37.7 141 22 142/69 (93) 92 Nasal Cannula 2.0 11/20/16 00:00 Nasal Cannula 1.0 11/20/16 00:00 Nasal Cannula 2.0 11/20/16 00:00 37.3 122 16 141/90 (107) 97 Nasal Cannula 2.0 11/19/16 23:15 127 16 141/92 (108) 95 Nasal Cannula 2.0 11/19/16 22:15 93 18 125/84 (98) 93 Nasal Cannula 2.0 11/19/16 21:15 110 16 146/77 (100) 95 Nasal Cannula 2.0 11/19/16 20:00 36.9 120 16 147/75 (99) 96 Nasal Cannula 2.0 11/19/16 20:00 Nasal Cannula 2.0 11/19/16 19:45 141/92 (108) 11/19/16 19:15 124 131/85 (100) 11/19/16 18:48 139 138/91 (107) 11/19/16 18:35 125 22 142/81 (101) 97 Nasal Cannula 2.0 11/19/16 18:00 141 169/106 (127) 11/19/16 17:25 37.4 131 198/120 (146) 98 Nasal Cannula 2.0 11/19/16 16:00 Room Air 11/19/16 15:30 37.6 67 20 189/73 (111) 94 Room Air 11/19/16 12:00 Room Air Last 24 Hours Test 11/19/16 11:26 11/19/16 16:13 11/20/16 07:01 11/20/16 07:02 Bedside Glucose 134 mg/dl Troponin I 0.394 ng/ml White Blood Count 18.07 K/uL Red Blood Count 4.57 M/uL Hemoglobin 14.6 g/dL Hematocrit 43.6 % Mean Corpuscular Volume 95.4 fL Mean Corpuscular Hemoglobin 31.9 pg Mean Corpuscular Hemoglobin Concent 33.5 g/dl Platelet Count 290 K/uL Mean Platelet Volume 10.0 fL Neutrophils (%) (Auto) 63.6 % Lymphocytes (%) (Auto) 26.0 % Monocytes (%) (Auto) 9.8 % Eosinophils (%) (Auto) 0.0 % Basophils (%) (Auto) 0.2 % Neutrophils # (Auto) 11.50 K/uL Lymphocytes # (Auto) 4.70 K/uL Monocytes # (Auto) 1.77 K/uL Eosinophils # (Auto) 0.00 K/uL Basophils # (Auto) 0.03 K/uL RDW Standard Deviation 49.7 fL RDW Coefficient of Variation 14.3 % Immature Granulocyte % (Auto) 0.4 % Immature Granulocyte # (Auto) 0.07 K/uL Sodium Level 147 mmol/L Potassium Level 2.9 mmol/L Chloride Level 110 mmol/L Carbon Dioxide Level 28 mmol/L Anion Gap 9.0 mmol/L Blood Urea Nitrogen 17 mg/dl Creatinine 0.93 mg/dl Est Creatinine Clear Calc Drug Dose 38.8 ml/min Estimated GFR () 63.6 Estimated GFR (Non- 54.9 BUN/Creatinine Ratio 18.1 Random Glucose 165 mg/dl Calcium Level 9.6 mg/dl Exam: Gen.: Patient is unresponsive to voice, tactile stimuli, and sternal rub. HEENT: Normocephalic /atraumatic, no scleral icterus Heart: Regular rate and rhythm Extremities: No gross deformities or rashes noted Neurological examination: Mental status: Patient is unresponsive to voice, tactile stimuli, and sternal rub. No speech produced Cranial nerve: Pupils were midline and equally round and reactive. The rest of cranial nerves were difficult to obtain due to mental status Strength: No spontaneous movement. Sensation: Did withdrawal toes to deep nailbed pressure Coordination: Could not assess coordination due to mental status Current Inpatient Medications Medications (Trade) Dose Ordered Sig/Ysabel Route Start Time Stop Time Status Last Admin Dose Admin Miscellaneous Information (Pharmacist Discharge Med Rec Consult) 1 ea UD PRN N/A 11/18/16 12:00 12/18/16 11:59 Sodium Chloride 1,000 ml @ 50 mls/hr Q20H IV 11/18/16 11:57 12/18/16 11:56 Future Hold 11/18/16 17:30 50 MLS/HR Ondansetron HCl (Zofran Inj) 4 mg Q6H PRN IV 11/18/16 12:00 12/18/16 11:59 Hydralazine HCl (HydrALAZINE INJ) 10 mg Q4 PRN IV. 11/18/16 12:30 12/18/16 12:29 Levothyroxine Sodium 75 mcg/ Syringe 3.75 ml @ 2 mls/min DAILY@09 IV 11/19/16 09:00 12/19/16 08:59 11/20/16 08:31 2 MLS/MIN Albuterol/ Ipratropium (Duoneb) 3 ml Q4R PRN INH 11/18/16 12:30 12/18/16 12:29 Aspirin (Ecotrin Tab) 81 mg QAM PO 11/19/16 09:00 12/19/16 08:59 Future Hold Gadobutrol (Gadavist) 7 mmol UD PRN IV 11/18/16 22:30 11/22/16 22:29 Rosuvastatin Calcium (Crestor Tab) 10 mg PM PO 11/19/16 21:00 12/19/16 20:59 Future Hold Sodium Chloride 1,000 ml @ 100 mls/hr Q10H IV 11/19/16 18:00 12/19/16 17:59 11/20/16 08:30 100 MLS/HR Aspirin (Aspirin Supp) 300 mg DAILY SC 11/20/16 09:00 12/20/16 08:59 11/20/16 08:04 300 MG Enoxaparin Sodium (Lovenox Inj) 70 mg Q12H SQ 11/19/16 18:00 12/19/16 17:59 11/20/16 05:24 70 MG Diltiazem HCl 125 mg/Dextrose 125 ml @ 0 mls/hr Q0M PRN IV 11/19/16 18:30 12/19/16 17:44 11/20/16 09:22 5 MLS/HR Scopolamine (Transderm-Scop Patch) 1.5 mg Q72H TD 11/20/16 01:30 12/20/16 01:29 11/20/16 01:48 1.5 MG Miscellaneous Information (Check Scopolamine Patch Placement) 1 ea QS N/A 11/20/16 08:00 12/20/16 07:59 11/20/16 08:01 1 EA Miscellaneous (Remove Transderm-Scop Patch) 1 ea Q72H N/A 11/23/16 01:30 12/23/16 01:29 Metoprolol Tartrate (Lopressor Iv) 5 mg Q4H PRN IV 11/20/16 05:30 12/20/16 05:29 11/20/16 05:23 5 MG Impression This is a 86-year-old female with acute to subacute left frontal, left occipital , and left cerebellum ischemic strokes. Likely etiology cardioembolic due to paroxysmal A. fib not on anticoagulation. In addition patient has evidence of old right frontal, left ino, and left cerebellar ischemic strokes. Residual neurological deficits include right hemiplegia, global aphasia, cognitive deficits, likely left sensory deficits. Known stroke risk factors include A. fib, hypertension, dyslipidemia, history of previous strokes. Patient has had a decline in mental status possibly due to an infectious etiology. Plan Agree with infectious etiology per hospitalist team. If no infectious etiology is found to explain change in mental status, consider repeating an MRI brain and /or doing an EEG to rule out nonconvulsive status recommend anticoagulation in the setting of A. fib for secondary stroke prevention. Patient is at high risk for additional strokes in the future not on anticoagulation. Fall risk alone is not a contraindication to anticoagulation. History of a traumatic subdural is also not contradicted indication to anticoagulation. Follow-up PT/OT and speech therapies for discharge planning. Blood pressure recommendations while in hospital 175/95-150/80 Avoid hypotension and dehydration Stroke risk factor modifications and recommendations: Blood pressure recommendations for the first month post hospital discharge 150/ 90-130/80, and after that blood pressure recommendations 130/80-110/70 Total cholesterol goal 100- 200 and LDL goal less than 100 Hemoglobin A1c goal less than 7 Encourage exercise at least 3 times a week for 30 minutes. Follow-up in neurology clinic in 1 month for post stroke hospital follow-up. If there is any questions or concerns, feel free to call/page me.
--- NOTE | 2016-11-20 09:39 | DIAGNOSTIC IMAGING REPORT ---
CHEST ONE VIEW PORTABLE CLINICAL HISTORY: Cerebrovascular accident. Evaluate for aspiration. COMPARISON STUDY: Chest radiograph November 18, 2016. FINDINGS: There are median sternotomy wires. Cardiomediastinal silhouette is stable. No pneumothorax or pleural effusion is present. There is no consolidation to suggest pneumonia. Diffuse interstitial thickening is unchanged from earlier studies. IMPRESSION: No change in diffuse interstitial thickening which suggests interstitial lung disease. No superimposed consolidation identified. Electronically signed by: Live Trejo M.D. 11/20/2016 9:38 AM Dictated Date/Time: 11/20/2016 9:34 AM
[2016-11-20] MEDS ORDERED: PIPERACILL/TAZOBAC CONSULT ACTIVE PRN (10:30)
[2016-11-20] MEDS ORDERED: PIPERACILL/TAZOBAC IV 3.375 GM in DEXTROSE 5% 100ML IV ONE (10:30)
[2016-11-20 12:23] LABS: URINE APPEARANCE CLEAR (CLEAR); URINE BILIRUBIN NEG (NEG); URINE COLOR DK YELLOW; URINE EPITHELIAL CELL AUTO >30 /lpf (0-5); URINE NITRITE NEG (NEG); URINE SPECIFIC GRAVITY 1.024 (1.000-1.030); UROBILINOGEN NEG (NEG); ZZURINE CULT IF INDIC CATH NO
[2016-11-20 12:25] LABS: MANUAL MICROSCOPIC REQUIRED? NO; REVIEW REQ? NO
[2016-11-20] MEDS: POTASSIUM CHLR 10 MEQ / WTR 10 MEQ in PREMIXED WATER 100 ML IV SCH ×4 (13:01→16:52)
--- NOTE | 2016-11-20 13:05 | DIAGNOSTIC IMAGING REPORT ---
HEAD WITHOUT CONTRAST (CT) CT DOSE: 614.27 mGy.cm HISTORY: Mental status change eval if worsening stroke, ams TECHNIQUE: Multiaxial CT images of the head were performed without the use of intravenous contrast. A dose lowering technique was utilized adhering to the principles of ALARA. Comparison: 11/18/2016 Findings: The paranasal sinuses and mastoid air cells are clear. Moderate generalized atrophy. Considerable chronic small vessel change. Small pre-existing right frontal infarct showing no evidence for progression. Impression: No change from the prior study. Stable CT of the brain. No acute intracranial hemorrhage. The above report was generated using voice recognition software. It may contain grammatical, syntax or spelling errors. Electronically signed by: Cristi Sawyer M.D. 11/20/2016 1:04 PM Dictated Date/Time: 11/20/2016 1:02 PM
--- NOTE | 2016-11-20 15:18 | Palliative Care Consultation ---
Consultation Date of Consultation: Nov 20, 2016. Requesting Physician: Eli Garibay PA-C Attending Physician: Eli Garibay PA-C, Dr. Allen Reason for Consultation: Goals of care History of Present Illness This 86 year old female patient with PMH listed below presented to the hospital a three days ago with c/o right sided weakness and unresponsiveness. CT showed acute/subacute right frontal infarct, age-indeterminate left ino and left cerebellar lacunar infarct. 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 Patient initially was still able to follow commands and interact somewhat. Yesterday, patient had acute episode of choking on ice chips with possible aspiration. She went into afibi with RVR during episode, cardizem gtt was started. She converted to NSR at 0600, cardizem was discontinued around 1100. Today, patient is essentially obtunded per report from MELY, primary RN, and patient's family. Blood cultures and CT head obtained and both unchanged from prior study. Abx were started as well. Patient's daughters, Yaa and Floridalma, are her primary caregivers and state that patient would not want to be prolonged in this state. Palliative care consulted to establish goals of care and provide support to family. Myself and Dr. Lala met with the patient's daughters outside of the room. Yaa and Floridalma both state that patient would never want her life prolonged if she is not going to improve from the state she is in today. They state they just went through something similar at end-of-life with their father about a year ago and patient has said since that time that she would not want any heroic measures to keep her alive if something happened. Daughters would like to continue current treatment for the time being and reevaluate tomorrow. If there is no sign of recovery, they will likely transition their mother to comfort measures only. I was unable to see the patient or examine her as she was out of room at CT scanner. I will revisit later when patient in room. Past Medical/Surgical History Medical History: CHF Afib Htn Hypothyroidism Pulmonary fibrosis CAD TIA CABG x3 Social History Smoking Status: Never Smoker Marital Status: Review of Systems unable to obtain ROS Allergies Coded Allergies: Amoxicillin (Unverified Allergy, Unknown, RASH,GI UPSET, 11/18/16) Cantaloupe (Unverified Allergy, Unknown, Itchiness, 11/18/16) Celery (Unverified Allergy, Unknown, ITCHINESS, 11/18/16) [place] (Unverified Allergy, Unknown, ITCHINESS, 11/18/16) Peanut (Unverified Allergy, Unknown, ITCHINESS, 11/18/16) Spinach (Unverified Allergy, Unknown, ITCHINESS, 11/18/16) Statins (Unverified Allergy, Unknown, RASH, GI UPSET, 11/18/16) Penicillins (Unverified Adverse Reaction, Intermediate, Diarrhea and vomiting, 11/18/16) Sulfamethoxazole w/Trimethoprim (Unverified Adverse Reaction, Intermediate , Diarrhea, vomiting, 11/18/16) Medications Current Inpatient Medications Medications (Trade) Dose Ordered Sig/Ysabel Route Start Time Stop Time Status Last Admin Dose Admin Miscellaneous Information (Pharmacist Discharge Med Rec Consult) 1 ea UD PRN N/A 11/18/16 12:00 12/18/16 11:59 Sodium Chloride 1,000 ml @ 50 mls/hr Q20H IV 11/18/16 11:57 12/18/16 11:56 Future Hold 11/18/16 17:30 50 MLS/HR Ondansetron HCl (Zofran Inj) 4 mg Q6H PRN IV 11/18/16 12:00 12/18/16 11:59 Hydralazine HCl (HydrALAZINE INJ) 10 mg Q4 PRN IV. 11/18/16 12:30 12/18/16 12:29 Levothyroxine Sodium 75 mcg/ Syringe 3.75 ml @ 2 mls/min DAILY@09 IV 11/19/16 09:00 12/19/16 08:59 11/20/16 08:31 2 MLS/MIN Albuterol/ Ipratropium (Duoneb) 3 ml Q4R PRN INH 11/18/16 12:30 12/18/16 12:29 Aspirin (Ecotrin Tab) 81 mg QAM PO 11/19/16 09:00 12/19/16 08:59 Future Hold Gadobutrol (Gadavist) 7 mmol UD PRN IV 11/18/16 22:30 11/22/16 22:29 Rosuvastatin Calcium (Crestor Tab) 10 mg PM PO 11/19/16 21:00 12/19/16 20:59 Future Hold Sodium Chloride 1,000 ml @ 100 mls/hr Q10H IV 11/19/16 18:00 12/19/16 17:59 11/20/16 14:16 100 MLS/HR Aspirin (Aspirin Supp) 300 mg DAILY NV 11/20/16 09:00 12/20/16 08:59 11/20/16 08:04 300 MG Enoxaparin Sodium (Lovenox Inj) 70 mg Q12H SQ 11/19/16 18:00 12/19/16 17:59 Future hold 11/20/16 05:24 70 MG Diltiazem HCl 125 mg/Dextrose 125 ml @ 0 mls/hr Q0M PRN IV 11/19/16 18:30 12/19/16 17:44 11/20/16 09:22 5 MLS/HR Scopolamine (Transderm-Scop Patch) 1.5 mg Q72H TD 11/20/16 01:30 12/20/16 01:29 11/20/16 01:48 1.5 MG Miscellaneous Information (Check Scopolamine Patch Placement) 1 ea QS N/A 11/20/16 08:00 12/20/16 07:59 11/20/16 08:01 1 EA Miscellaneous (Remove Transderm-Scop Patch) 1 ea Q72H N/A 11/23/16 01:30 12/23/16 01:29 Metoprolol Tartrate (Lopressor Iv) 5 mg Q4H PRN IV 11/20/16 05:30 12/20/16 05:29 11/20/16 05:23 5 MG Piperacillin Sod/ Tazobactam Sod 3.375 gm/Dextrose 115 ml @ 28.75 mls/ hr Q8H IV 11/20/16 16:00 11/27/16 15:59 Piperacillin Sod/ Tazobactam Sod (Consult) 1 ea UD PRN N/A 11/20/16 10:30 12/20/16 10:29 Potassium Chloride 10 meq/ Prmx 100 ml @ 100 mls/hr Q1H IV 11/20/16 11:30 11/20/16 15:29 11/20/16 14:15 100 MLS/HR Physical Exam Date Time Temp Pulse Resp B/P (MAP) Pulse Ox O2 Delivery O2 Flow Rate FiO2 11/20/16 12:20 95 Nasal Cannula 2.0 11/20/16 12:15 36.6 76 20 121/63 (82) 95 11/20/16 08:10 Nasal Cannula 2.0 11/20/16 08:00 36.1 70 18 158/68 (98) 93 Nasal Cannula 2.0 11/20/16 05:23 138 137/76 11/20/16 04:00 Nasal Cannula 2.0 11/20/16 04:00 37.7 141 22 142/69 (93) 92 Nasal Cannula 2.0 11/20/16 00:00 Nasal Cannula 1.0 11/20/16 00:00 Nasal Cannula 2.0 11/20/16 00:00 37.3 122 16 141/90 (107) 97 Nasal Cannula 2.0 11/19/16 23:15 127 16 141/92 (108) 95 Nasal Cannula 2.0 11/19/16 22:15 93 18 125/84 (98) 93 Nasal Cannula 2.0 11/19/16 21:15 110 16 146/77 (100) 95 Nasal Cannula 2.0 11/19/16 20:00 36.9 120 16 147/75 (99) 96 Nasal Cannula 2.0 11/19/16 20:00 Nasal Cannula 2.0 11/19/16 19:45 141/92 (108) 11/19/16 19:15 124 131/85 (100) 11/19/16 18:48 139 138/91 (107) 11/19/16 18:35 125 22 142/81 (101) 97 Nasal Cannula 2.0 11/19/16 18:00 141 169/106 (127) 11/19/16 17:25 37.4 131 198/120 (146) 98 Nasal Cannula 2.0 11/19/16 16:00 Room Air 11/19/16 15:30 37.6 67 20 189/73 (111) 94 Room Air Physical assessment was not completed at this time due to patient being out of room for test. Will revisit. Laboratory Results Last 24 Hours Test 11/19/16 16:09 11/19/16 16:13 11/20/16 00:00 11/20/16 07:01 Bedside Glucose 138 mg/dl Troponin I 0.394 ng/ml Urine Color DK YELLOW Urine Appearance CLEAR Urine pH 5.0 Urine Specific [place] 1.024 Urine Protein 2+ Urine Glucose (UA) NEG Urine Ketones NEG Urine Occult Blood 2+ Urine Nitrite NEG Urine Bilirubin NEG Urine Urobilinogen NEG Urine Leukocyte Esterase TRACE Urine WBC (Auto) 1-5 /hpf Urine RBC (Auto) 10-30 /hpf Urine Hyaline Casts (Auto) 1-5 /lpf Urine Epithelial Cells (Auto) >30 /lpf Urine Bacteria (Auto) NEG White Blood Count 18.07 K/uL Red Blood Count 4.57 M/uL Hemoglobin 14.6 g/dL Hematocrit 43.6 % Mean Corpuscular Volume 95.4 fL Mean Corpuscular Hemoglobin 31.9 pg Mean Corpuscular Hemoglobin Concent 33.5 g/dl Platelet Count 290 K/uL Mean Platelet Volume 10.0 fL Neutrophils (%) (Auto) 63.6 % Lymphocytes (%) (Auto) 26.0 % Monocytes (%) (Auto) 9.8 % Eosinophils (%) (Auto) 0.0 % Basophils (%) (Auto) 0.2 % Neutrophils # (Auto) 11.50 K/uL Lymphocytes # (Auto) 4.70 K/uL Monocytes # (Auto) 1.77 K/uL Eosinophils # (Auto) 0.00 K/uL Basophils # (Auto) 0.03 K/uL RDW Standard Deviation 49.7 fL RDW Coefficient of Variation 14.3 % Immature Granulocyte % (Auto) 0.4 % Immature Granulocyte # (Auto) 0.07 K/uL Test 11/20/16 07:02 Sodium Level 147 mmol/L Potassium Level 2.9 mmol/L Chloride Level 110 mmol/L Carbon Dioxide Level 28 mmol/L Anion Gap 9.0 mmol/L Blood Urea Nitrogen 17 mg/dl Creatinine 0.93 mg/dl Est Creatinine Clear Calc Drug Dose 38.8 ml/min Estimated GFR () 63.6 Estimated GFR (Non- 54.9 BUN/Creatinine Ratio 18.1 Random Glucose 165 mg/dl Calcium Level 9.6 mg/dl Assessment & Plan Problem list: Altered mental status Acute episode of choking and questionable aspiration Afib with RVR- converted to NSR, cardizem discontinued Htn Hx CHF, CAD, CABG Chronic interstitial lung disease/pulmonary fibrosis Goals of care (Z51.5) Palliative care recs: -Lengthy discussion held with patient's daughters, Yaa and Floridalma. Plan is to continue with current treatment with abx and wait to see improvement in next 24 hours. -If no improvement, daughters state they will likely transition to comfort measures only. -Daughters confirmed DNR status. -Living will is in our system from 2016 which states at end-stage patient would not want life prolonged. Daughters confirmed this and said their mother would never want to be prolonged in this state if there is not improvement. -Support given to family. Thank you kindly for this consult. I will follow.
[2016-11-20] MEDS: HydrALAZINE HCL 20 MG/ML VIAL IV. PRN (16:16)
[2016-11-20] MEDS: PIPERACILL/TAZOBAC IV 3.375 GM in DEXTROSE 5% 100ML 100 ML IV SCH ×2 (18:03→23:31)
[2016-11-21] VITALS (7 sets, daily range): BP systolic 129–178; BP diastolic 53–82; PULSE 45–89; TEMP 36.8–37.5; O2SAT 96–100
[2016-11-21] MEDS ORDERED: NURSING VERBAL MED ORDER ONE (05:00)
[2016-11-21] MEDS ORDERED: FUROSEMIDE INJ 20 MG in SYRINGE 0 ML IV STA (05:04)
[2016-11-21] MEDS: ENOXAPARIN 80 MG/0.8 ML SYR SQ SCH ×2 (05:21→18:37)
[2016-11-21] MEDS: METOPROLOL TARTRATE 1 MG/ML VIAL IV PRN ×2 (05:43→11:10)
[2016-11-21 06:52] LABS: BASO % 0.3 %; BASO ABS # 0.04 K/uL (0-0.2); COMPLETE YES; EOS % 0.1 %; HEMATOCRIT 41.2 % (37-47); IG% 0.2 %; LYMPH % 29.5 %; LYMPH ABS # 4.06 K/uL (1.2-3.4); MEAN CELL VOLUME 95.8 fL (80-100); MEAN CORPUSCULAR HEMOGLOBIN 31.4 pg (25-34); MEAN CORPUSCULAR HGB CONC 32.8 g/dl (32-36); MONO % 9.1 %; NEUT % 60.8 %; PLATELET COUNT 211 K/uL (130-400); WHITE BLOOD COUNT 13.74 K/uL (4.8-10.8)
[2016-11-21 07:23] LABS: BUN/CREATININE RATIO 19.7 (10-20); CALCIUM 9.2 mg/dl (8.5-10.1); CREATININE 0.95 mg/dl (0.60-1.20); POTASSIUM 2.8 mmol/L (3.5-5.1)
[2016-11-21] MEDS ORDERED: POTASSIUM CHLORIDE INJ 40 MEQ in SODIUM CHLORIDE 0.9% 1000ML 1,000 ML IV ONE (08:45)
[2016-11-21] MEDS: LEVOTHYROXINE SODIUM INJ 75 MCG in SYRINGE 0 ML IV SCH (08:46)
[2016-11-21] MEDS: CHECK SCOPOLAMINE PATCH PLACEMENT SCH ×2 (08:46→16:18)
[2016-11-21] MEDS: PIPERACILL/TAZOBAC IV 3.375 GM in DEXTROSE 5% 100ML 100 ML IV SCH ×2 (08:46→16:19)
--- NOTE | 2016-11-21 08:49 | Neurology Progress Notes ---
Neurology Progress Note Date of Service Nov 21, 2016. Subjective No significant change in patient's mental status. She is now on antibiotics. Family is considering hospice if patient's status remains poor. CT of the head report and images reviewed by myself. No acute changes. Objective Date Time Temp Pulse Resp B/P (MAP) Pulse Ox O2 Delivery O2 Flow Rate FiO2 11/21/16 07:45 37.0 80 16 153/67 (95) 96 Room Air 11/21/16 05:43 138 167/56 11/21/16 04:00 Nasal Cannula 2.0 11/21/16 04:00 36.8 54 167/56 (93) 99 Nasal Cannula 2.0 11/21/16 00:00 Nasal Cannula 2.0 11/20/16 23:12 37.4 56 16 158/71 (100) 100 Nasal Cannula 2.5 11/20/16 20:00 98 Nasal Cannula 2.0 11/20/16 19:15 36.9 62 16 148/74 (98) 99 Nasal Cannula 3.0 11/20/16 16:00 98 Nasal Cannula 2.0 11/20/16 15:28 37.7 78 19 187/76 (113) 98 Nasal Cannula 2.0 11/20/16 12:20 95 Nasal Cannula 2.0 11/20/16 12:15 36.6 76 20 121/63 (82) 95 Last 24 Hours Test 11/20/16 16:19 11/21/16 06:27 Bedside Glucose 134 mg/dl White Blood Count 13.74 K/uL Red Blood Count 4.30 M/uL Hemoglobin 13.5 g/dL Hematocrit 41.2 % Mean Corpuscular Volume 95.8 fL Mean Corpuscular Hemoglobin 31.4 pg Mean Corpuscular Hemoglobin Concent 32.8 g/dl Platelet Count 211 K/uL Mean Platelet Volume 10.0 fL Neutrophils (%) (Auto) 60.8 % Lymphocytes (%) (Auto) 29.5 % Monocytes (%) (Auto) 9.1 % Eosinophils (%) (Auto) 0.1 % Basophils (%) (Auto) 0.3 % Neutrophils # (Auto) 8.34 K/uL Lymphocytes # (Auto) 4.06 K/uL Monocytes # (Auto) 1.25 K/uL Eosinophils # (Auto) 0.02 K/uL Basophils # (Auto) 0.04 K/uL RDW Standard Deviation 50.8 fL RDW Coefficient of Variation 14.5 % Immature Granulocyte % (Auto) 0.2 % Immature Granulocyte # (Auto) 0.03 K/uL Sodium Level 148 mmol/L Potassium Level 2.8 mmol/L Chloride Level 112 mmol/L Carbon Dioxide Level 28 mmol/L Anion Gap 8.0 mmol/L Blood Urea Nitrogen 19 mg/dl Creatinine 0.95 mg/dl Est Creatinine Clear Calc Drug Dose 38.0 ml/min Estimated GFR () 62.0 Estimated GFR (Non- 53.5 BUN/Creatinine Ratio 19.7 Random Glucose 145 mg/dl Calcium Level 9.2 mg/dl Exam: Gen.: Patient is unresponsive to voice, tactile stimuli, and sternal rub. HEENT: Normocephalic /atraumatic, no scleral icterus Heart: Regular rate and rhythm Extremities: No gross deformities or rashes noted Neurological examination: Mental status: Patient is unresponsive to voice, tactile stimuli, and sternal rub. No speech produced. Patient did not follow commands. Cranial nerve: Patient did resist eye opening slightly. Myeloneuritis she did seem to try to look around a little bit. Pupils were midline and equally round and reactive. The rest of cranial nerves were difficult to obtain due to mental status Strength: With tactile stimulation there was little spontaneous movement of the left arm and leg and right foot. Sensation: Did withdrawal toes to deep nailbed pressure Current Inpatient Medications Medications (Trade) Dose Ordered Sig/Ysabel Route Start Time Stop Time Status Last Admin Dose Admin Miscellaneous Information (Pharmacist Discharge Med Rec Consult) 1 ea UD PRN N/A 11/18/16 12:00 12/18/16 11:59 Ondansetron HCl (Zofran Inj) 4 mg Q6H PRN IV 11/18/16 12:00 12/18/16 11:59 Hydralazine HCl (HydrALAZINE INJ) 10 mg Q4 PRN IV. 11/18/16 12:30 12/18/16 12:29 11/20/16 16:16 10 MG Levothyroxine Sodium 75 mcg/ Syringe 3.75 ml @ 2 mls/min DAILY@09 IV 11/19/16 09:00 12/19/16 08:59 11/20/16 08:31 2 MLS/MIN Albuterol/ Ipratropium (Duoneb) 3 ml Q4R PRN INH 11/18/16 12:30 12/18/16 12:29 Aspirin (Ecotrin Tab) 81 mg QAM PO 11/19/16 09:00 12/19/16 08:59 Future Hold Gadobutrol (Gadavist) 7 mmol UD PRN IV 11/18/16 22:30 11/22/16 22:29 Rosuvastatin Calcium (Crestor Tab) 10 mg PM PO 11/19/16 21:00 12/19/16 20:59 Future Hold Aspirin (Aspirin Supp) 300 mg DAILY [place] 11/20/16 09:00 12/20/16 08:59 11/20/16 08:04 300 MG Enoxaparin Sodium (Lovenox Inj) 70 mg Q12H SQ 11/19/16 18:00 12/19/16 17:59 Future hold 11/21/16 05:21 70 MG Diltiazem HCl 125 mg/Dextrose 125 ml @ 0 mls/hr Q0M PRN IV 11/19/16 18:30 12/19/16 17:44 11/20/16 09:22 5 MLS/HR Scopolamine (Transderm-Scop Patch) 1.5 mg Q72H TD 11/20/16 01:30 12/20/16 01:29 11/20/16 01:48 1.5 MG Miscellaneous Information (Check Scopolamine Patch Placement) 1 ea QS N/A 11/20/16 08:00 12/20/16 07:59 11/20/16 23:33 1 EA Miscellaneous (Remove Transderm-Scop Patch) 1 ea Q72H N/A 11/23/16 01:30 12/23/16 01:29 Metoprolol Tartrate (Lopressor Iv) 5 mg Q4H PRN IV 11/20/16 05:30 12/20/16 05:29 11/21/16 05:43 5 MG Piperacillin Sod/ Tazobactam Sod 3.375 gm/Dextrose 115 ml @ 28.75 mls/ hr Q8H IV 11/20/16 16:00 11/27/16 15:59 11/20/16 23:31 28.75 MLS/HR Piperacillin Sod/ Tazobactam Sod (Consult) 1 ea UD PRN N/A 11/20/16 10:30 12/20/16 10:29 Potassium Chloride 40 meq/ Sodium Chloride 1,020 ml @ 80 mls/hr [id number] IV 11/21/16 08:45 11/21/16 08:46 UNV Impression This is a 86-year-old female with acute to subacute left frontal, left occipital , and left cerebellum ischemic strokes. Likely etiology cardioembolic due to paroxysmal A. fib not on anticoagulation. In addition patient has evidence of old right frontal, left ino, and left cerebellar ischemic strokes. Residual neurological deficits include right hemiplegia, global aphasia, cognitive deficits, likely left sensory deficits. Known stroke risk factors include A. fib, hypertension, dyslipidemia, history of previous strokes. Patient has had a decline in mental status possibly due to an infectious etiology. Mental status remains poor this morning. Plan Agree with infectious workup/treatment per hospitalist team. We'll get an EEG today to make sure that there is no concern for nonconvulsive status contributing to change in mental status. If mental status remains poor, would recommend considering repeating an MRI of the brain to see if there has been additional strokes. If there is any questions or concerns, feel free to call/page me.
[2016-11-21] MEDS: ASPIRIN 300 MG SUPP PR SCH (08:51)
--- NOTE | 2016-11-21 10:15 | EEG Procedure Note ---
EEG Procedure Note Date of Service Nov 21, 2016. Start / End Times Start Time: 9:33 AM End Time: 9:53 AM Referring Physician Brooklyn Munoz History This is an 86-year-old female who originally presented with several small strokes in the left hemisphere. Is now unresponsive with change in mental status. EEG to rule out nonconvulsive status or seizures as a reason for change in mental status. Home Medication List Scheduled Aspirin (Aspirin Ec), 81 MG PO DAILY Bumetanide (Bumex), 1 MG PO UD Dextromethorphan-Guaifenesin (Mucinex Dm Maximum Streng), 1 TAB PO DAILY Diltiazem Hcl Coated Beads (Diltiazem Hcl Er), 120 MG PO HS Gabapentin (Neurontin), 100 MG PO AFTERNOON Gabapentin (Neurontin), 200 MG PO HS Isosorbide Mononitrate Ext Rel (Imdur Ext Rel), 30 MG PO QAM Levothyroxine Sodium (Synthroid), 150 MCG PO QAM Loratadine (Claritin), 10 MG PO DAILY Metoprolol Tartrate (Lopressor) (Lopressor), 12.5 MG PO BID Niacin (Niacin), 500 MG PO DAILY Ocuvite Preservision (Ocuvite Preservision), 1 TAB PO DAILY Potassium Chloride Microencaps (Potassium Chloride Er), 20 MEQ PO BID Scheduled PRN Acetaminophen W/ Codeine (Tylenol/Codeine #4), 1 TAB PO QID PRN for Pain Albuterol Sulfate (Proair Respiclick), 1 PUFF INH BID PRN for SOB/Wheezing Fluticasone Propionate (Nasal) (Flonase Allergy Relief ), 2 SPRAY ADRIENNE DAILY PRN for Inpatient Medication List Current Inpatient Medications Medications (Trade) Dose Ordered Sig/Ysabel Route Start Time Stop Time Status Last Admin Dose Admin Ondansetron HCl (Zofran Inj) 4 mg Q6H PRN IV 11/18/16 12:00 12/18/16 11:59 Hydralazine HCl (HydrALAZINE INJ) 10 mg Q4 PRN IV. 11/18/16 12:30 12/18/16 12:29 11/20/16 16:16 10 MG Levothyroxine Sodium 75 mcg/ Syringe 3.75 ml @ 2 mls/min DAILY@09 IV 11/19/16 09:00 12/19/16 08:59 11/21/16 08:46 2 MLS/MIN Albuterol/ Ipratropium (Duoneb) 3 ml Q4R PRN INH 11/18/16 12:30 12/18/16 12:29 Aspirin (Ecotrin Tab) 81 mg QAM PO 11/19/16 09:00 12/19/16 08:59 Future Hold Gadobutrol (Gadavist) 7 mmol UD PRN IV 11/18/16 22:30 11/22/16 22:29 Rosuvastatin Calcium (Crestor Tab) 10 mg PM PO 11/19/16 21:00 12/19/16 20:59 Future Hold Aspirin (Aspirin Supp) 300 mg DAILY NV 11/20/16 09:00 12/20/16 08:59 11/21/16 08:51 300 MG Enoxaparin Sodium (Lovenox Inj) 70 mg Q12H SQ 11/19/16 18:00 12/19/16 17:59 Future hold 11/21/16 05:21 70 MG Diltiazem HCl 125 mg/Dextrose 125 ml @ 0 mls/hr Q0M PRN IV 11/19/16 18:30 12/19/16 17:44 11/20/16 09:22 5 MLS/HR Scopolamine (Transderm-Scop Patch) 1.5 mg Q72H TD 11/20/16 01:30 12/20/16 01:29 11/20/16 01:48 1.5 MG Miscellaneous Information (Check Scopolamine Patch Placement) 1 ea QS N/A 11/20/16 08:00 12/20/16 07:59 11/21/16 08:46 1 EA Miscellaneous (Remove Transderm-Scop Patch) 1 ea Q72H N/A 11/23/16 01:30 12/23/16 01:29 Metoprolol Tartrate (Lopressor Iv) 5 mg Q4H PRN IV 11/20/16 05:30 12/20/16 05:29 11/21/16 05:43 5 MG Piperacillin Sod/ Tazobactam Sod 3.375 gm/Dextrose 115 ml @ 28.75 mls/ hr Q8H IV 11/20/16 16:00 11/27/16 15:59 11/21/16 08:46 28.75 MLS/HR Piperacillin Sod/ Tazobactam Sod (Consult) 1 ea UD PRN N/A 11/20/16 10:30 12/20/16 10:29 Potassium Chloride 40 meq/ Sodium Chloride 1,020 ml @ 80 mls/hr [id number] ONCE IV 11/21/16 08:45 11/21/16 21:29 11/21/16 09:10 80 MLS/HR Levetiracetam 1000 mg/Dextrose 110 ml @ 440 mls/hr ONE ONCE IV 11/21/16 10:15 11/21/16 10:29 UNV Levetiracetam 500 mg/Dextrose 105 ml @ 420 mls/hr Q12 IV 11/21/16 21:00 12/21/16 20:59 UNV Description This is a 21 electrode EEG with a single channel dedicated to limited EKG. The electrodes were placed in accordance with the International 10-20 system. At the start of this recording the patient was in reported altered mental status. Background showed variability, but was poorly organized with no anterior to posterior gradient. Background was composed of moderate amplitude predominantly 5 Hz theta frequencies with intermixed delta and really alpha frequencies. There appeared to be continuous theta slowing over the right hemisphere. In addition there was frequent blunted delta waves in the right frontal area that sometimes have the appearance of triphasic waves but at other times appear concerning for sharply contoured delta waves maximal at F4. There was no state changes or sleep transients. Hyperventilation and photic stimulation were not done. Interpretation This is an abnormal routine EEG secondary to: 1) blunted and at times sharply contoured delta waves in the right frontal area , rarely at times with a triphasic appearance 2) continuous slowing over the right hemisphere 3) moderate background disorganization and slowing There was no electrographic seizures Clinical Correlation This EEG indicates: 1) while the blunted and sharply contoured waves in the right frontal lobe were not clearly epileptiform, there was appearance at times that was concerning for something that could develop into epileptiform discharges. Differential diagnosis could be metabolic encephalopathy versus structural underlying dysfunction versus poorly formed epileptiform discharges. 2) likely structural versus functional cerebral dysfunction over the right hemisphere 3) moderate encephalopathy of nonspecific etiology
[2016-11-21] MEDS ORDERED: LEVETIRACETAM IV 1,000 MG in DEXTROSE 5% 100ML 100 ML IV ONE (10:30)
--- NOTE | 2016-11-21 13:13 | DIAGNOSTIC IMAGING REPORT ---
MRI OF THE BRAIN COMBO CLINICAL HISTORY: Abnormal electroencephalogram. COMPARISON STUDY: MRI of the brain dated 11/18/2016. MR angiogram of the brain dated 11/17/2016. TECHNIQUE: MRI of the brain was performed utilizing various T1 and T2-weighted sequences in the axial, sagittal, and coronal planes. Contrast-enhanced sequences were acquired following the administration of 7 cc of Gadavist. FINDINGS: Brain parenchyma: Again seen are foci of restricted diffusion within the left cerebellar hemisphere and the left frontal lobe. The left frontal region of involvement has significantly increased in size from 11/18/2016. There are numerous new foci of restricted diffusion seen throughout the bilateral hemispheric white matter, as well as within the left parieto-occipital lobe. There are age-related involutional changes noting advanced subcortical and periventricular microangiopathic disease. There is no hemorrhage or midline shift. No enhancing mass lesion is identified on the postcontrast images. Chronic lacunar infarct identified within the left cerebellar hemisphere and the left ino. No extra-axial fluid collection is seen. The cerebellar tonsils are normal in configuration. Ventricles, sulci, and cisterns: Prominent secondary to involutional change. Pituitary and sella: Unremarkable. Intracranial vasculature: The left internal carotid artery flow void appears attenuated as compared the right. Orbits: The bony orbits are grossly intact. Orbital contents are normal in appearance noting bilateral ocular lens implants. Sinuses and mastoids: Clear. Calvarium: Unremarkable. Cervical cord: Partially visualized cervical spinal cord is normal in morphology and signal intensity. IMPRESSION: 1. Again seen are foci of restricted diffusion within the left frontal lobe and the left cerebellar hemisphere consistent with evolving infarcts. The left frontal infarct has increased in volume from 11/18/2016. 2. There are numerous new foci of restricted diffusion identified. These are seen throughout the periventricular white matter bilaterally, and also involving the left parieto-occipital cortex. This is consistent with acute to subacute ischemia. 3. There is no hemorrhage or midline shift. 4. Again seen is diminished left internal carotid artery flow void consistent with known carotid artery occlusion. Electronically signed by: Gaston Sanchez M.D. 11/21/2016 1:12 PM Dictated Date/Time: 11/21/2016 1:04 PM
[2016-11-21] MEDS: METOPROLOL TARTRATE 1 MG/ML VIAL IV. SCH ×2 (14:00→17:00)
[2016-11-21] MEDS ORDERED: SODIUM CHLORIDE 0.9% 1000ML 1,000 ML IV SCH ×2 (14:00→17:00)
--- NOTE | 2016-11-21 14:58 | Palliative Care Progress Note ---
Palliative Care Progress Note Date of Service Nov 21, 2016. Subjective Pt evaluation today including: conversation w/ family (granddaughter), physical exam, chart review, review of studies, conversation w/ managing consultant clinical professor Pain: not able to assess PO Intake: none Voiding: ballard catheter in place -Patient seen/examined by me today with her granddaughter and primary RN at bedside. She is obtunded during my assessment. She did not respond at all to stimuli. However, nurse and granddaughter witnessed patient following commands and opening eyes earlier. She had an EEG, and MRI of brain today. She is now on IV Keppra for possible seizure activity seen on EEG. Antibiotics continue. Review of Systems unable to obtain due to obtundation Objective Physical Exam General Appearance: no apparent distress ENT: hearing grossly normal Neck: supple, no JVD Respiratory/Chest: lungs clear, no respiratory distress, no accessory muscle use Cardiovascular: + irregularly irregular, + normal peripheral pulses Abdomen: normal bowel sounds, non tender, soft Neurologic/Psychiatric: + pertinent finding (obtunded) Skin: normal color Assessment and Plan Problem list: Altered mental status Acute episode of choking and questionable aspiration Afib with RVR- converted to NSR, cardizem discontinued Htn Hx CHF, CAD, CABG Chronic interstitial lung disease/pulmonary fibrosis Goals of care (Z51.5) Palliative care recs: -Plan, per granddaughter, is to continue current treatment and wait for improvement. Given that the patient had woken up today, the family has hope of recovery. However, granddaughter states they understand that it may be a minimal amount of improvement if any at all. -No further palliative needs at this time. I will continue to follow during hospital stay and be available as needed and for the family. Palliative Performance Scale: 10 % Continued [facility] stay due to: multiple IV medications needed Discharge planning: uncertain
[2016-11-21] MEDS ORDERED: GLUCAGON INJ 5 MG in SYRINGE 0 ML IV STA (18:01)
[2016-11-21] MEDS: POTASSIUM CHLR 10 MEQ / WTR 10 MEQ in PREMIXED WATER 100 ML IV SCH ×3 (18:35→20:55)
--- NOTE | 2016-11-21 18:47 | Progress Note ---
Subjective Date of Service: Nov 21, 2016. Subjective this pt is doing poorly, minimally responsive, concern for additional strokes confirmed family at bedside and updated, concern for airway protection and variable control of afib alternating with bouts of sinus bradycardia Problem List Medical Problems: (1) Abrasion Status: Acute (2) Acute on chronic intracranial subdural hematoma Status: Acute (3) Atrial fibrillation with rapid ventricular response Status: Acute (4) Change in mental status Status: Acute (5) Contusion Status: Acute (6) CVA (cerebral vascular accident) Status: Acute (7) Fall Status: Acute (8) Fluid overload Status: Acute (9) Head injury Status: Acute (10) HTN (hypertension) Status: Acute (11) Subconjunctival hemorrhage Status: Acute (12) UTI (urinary tract infection) Status: Acute Review of Systems cannot have ROS due to illness Objective Vital Signs Date Time Temp Pulse Resp B/P (MAP) Pulse Ox O2 Delivery O2 Flow Rate FiO2 11/21/16 17:00 45 11/21/16 16:00 Nasal Cannula 2.0 11/21/16 15:29 36.9 45 16 129/53 (78) 99 Room Air 11/21/16 14:00 43 11/21/16 12:00 98 Nasal Cannula 2.0 11/21/16 11:25 37.0 58 16 178/74 (108) 98 Nasal Cannula 2.0 11/21/16 11:10 154 198/112 11/21/16 08:00 96 Nasal Cannula 2.0 11/21/16 07:45 37.0 80 16 153/67 (95) 96 Room Air 11/21/16 05:43 138 167/56 11/21/16 04:00 Nasal Cannula 2.0 11/21/16 04:00 36.8 54 167/56 (93) 99 Nasal Cannula 2.0 11/21/16 00:00 Nasal Cannula 2.0 11/20/16 23:12 37.4 56 16 158/71 (100) 100 Nasal Cannula 2.5 11/20/16 20:00 98 Nasal Cannula 2.0 11/20/16 19:15 36.9 62 16 148/74 (98) 99 Nasal Cannula 3.0 Physical Exam General Appearance: WD/WN, + moderate distress Eyes: PERRL, EOMI Respiratory/Chest: + decreased breath sounds, + accessory muscle use Cardiovascular: regular rate, rhythm, no murmur Abdomen: normal bowel sounds, non tender, soft Neurologic/Psychiatric: + depressed affect, + disoriented Laboratory Results Last 24 Hours Test 11/21/16 06:27 White Blood Count 13.74 K/uL Red Blood Count 4.30 M/uL Hemoglobin 13.5 g/dL Hematocrit 41.2 % Mean Corpuscular Volume 95.8 fL Mean Corpuscular Hemoglobin 31.4 pg Mean Corpuscular Hemoglobin Concent 32.8 g/dl Platelet Count 211 K/uL Mean Platelet Volume 10.0 fL Neutrophils (%) (Auto) 60.8 % Lymphocytes (%) (Auto) 29.5 % Monocytes (%) (Auto) 9.1 % Eosinophils (%) (Auto) 0.1 % Basophils (%) (Auto) 0.3 % Neutrophils # (Auto) 8.34 K/uL Lymphocytes # (Auto) 4.06 K/uL Monocytes # (Auto) 1.25 K/uL Eosinophils # (Auto) 0.02 K/uL Basophils # (Auto) 0.04 K/uL RDW Standard Deviation 50.8 fL RDW Coefficient of Variation 14.5 % Immature Granulocyte % (Auto) 0.2 % Immature Granulocyte # (Auto) 0.03 K/uL Sodium Level 148 mmol/L Potassium Level 2.8 mmol/L Chloride Level 112 mmol/L Carbon Dioxide Level 28 mmol/L Anion Gap 8.0 mmol/L Blood Urea Nitrogen 19 mg/dl Creatinine 0.95 mg/dl Est Creatinine Clear Calc Drug Dose 38.0 ml/min Estimated GFR () 62.0 Estimated GFR (Non- 53.5 BUN/Creatinine Ratio 19.7 Random Glucose 145 mg/dl Calcium Level 9.2 mg/dl Assessment and Plan 86 yo F presented with subacute CVA then worsened and additional CVA seen now consistent with embolic from PAF previous history chronic diastolic CHF, chronic interstitial lung disease, hypothyroidism, coronary artery disease status post CABG 3. Encephalopathy in the setting of CVA, present on admission progressing unble to protect airway, use aspirin pr, control BP and ivf for supportive care - Echo complete- normal With chocking episodes ? aspiration pna? check BCx and zosyn Atrial fibrillation bouts of rapid rate and sinus bradycardia, seems sensitive to metoprolol, will try some glucogon due to palomo rate, but bradycardia maybe from CVA - Resumed lovenox for afib Hx of Chronic diastolic CHF- repeat ECHO appears normal without abnormalities. - Hold bumex for now Chronic interstitial lung disease exacerbation. - Duonebs q hr PRN Hypothyroidism Synthroid IV at this time. CODE STATUS: DO NOT RESUSCITATE, current outlook is poor with now tachy palomo behavior of heart rhythm Documented By: Harvinder Allen Continued [facility] stay due to: multiple IV medications needed Discharge planning: uncertain
[2016-11-21] MEDS: POTASSIUM CHLORIDE INJ 40 MEQ in SODIUM CHLORIDE 0.9% 1000ML 1,000 ML IV SCH (19:55)
[2016-11-21] MEDS: LEVETIRACETAM IV 500 MG in DEXTROSE 5% 100ML 100 ML IV SCH (19:56)
[2016-11-22] VITALS (7 sets, daily range): BP systolic 126–178; BP diastolic 50–75; PULSE 51–69; TEMP 36.6–37.5; O2SAT 95–98
[2016-11-22] MEDS: CHECK SCOPOLAMINE PATCH PLACEMENT SCH ×3 (01:03→16:30)
[2016-11-22] MEDS: PIPERACILL/TAZOBAC IV 3.375 GM in DEXTROSE 5% 100ML 100 ML IV SCH ×3 (01:03→16:31)
[2016-11-22] MEDS: POTASSIUM CHLORIDE INJ 40 MEQ in SODIUM CHLORIDE 0.9% 1000ML 1,000 ML IV SCH ×2 (04:00→14:30)
[2016-11-22] MEDS: ENOXAPARIN 80 MG/0.8 ML SYR SQ SCH ×2 (05:46→16:31)
[2016-11-22 06:21] LABS: HEMATOCRIT 37.3 % (37-47); MEAN CELL VOLUME 96.4 fL (80-100); MEAN CORPUSCULAR HEMOGLOBIN 31.3 pg (25-34); MEAN CORPUSCULAR HGB CONC 32.4 g/dl (32-36); MEAN PLATELET VOLUME 10.1 fL (7.4-10.4); PLATELET COUNT 181 K/uL (130-400); RED BLOOD COUNT 3.87 M/uL (4.2-5.4); WHITE BLOOD COUNT 13.31 K/uL (4.8-10.8)
[2016-11-22 06:49] LABS: BUN/CREATININE RATIO 20.1 (10-20); POTASSIUM 3.7 mmol/L (3.5-5.1)
[2016-11-22] MEDS: LEVETIRACETAM IV 500 MG in DEXTROSE 5% 100ML 100 ML IV SCH ×2 (08:03→20:52)
--- NOTE | 2016-11-22 08:06 | Hospitalist Progress Note ---
Hospitalist Progress Note Date of Service Nov 22, 2016. (Meghan Garibay PA-C) Subjective Pt evaluation today including: conversation w/ family, physical exam, chart review, lab review, review of studies Pain: appears comfortable PO Intake: NPO Voiding: ballard catheter in place The patient was seen and examined this morning. Pts daughter Yaa, her and their daughter are present at bedside. They report that yesterday she woke up briefly and was able to move her eyes, and that she also stuck out her tongue on command yesterday therefore they did not move towards a comfort measures only status, and they were waiting to see if she got any better. Today they report that she appears comfortable but is less responsive. She is not squeezing anyone's hand and not opening her eyes when they ask her to. There were no acute overnight events. Discussion was held and all her questions and concerns were answered, the plan is to continue current management. Additional Comments: ROS not obtained due to patient's mental status. (Meghan Garibay PA-C) Objective Vital Signs Date Time Temp Pulse Resp B/P (MAP) Pulse Ox O2 Delivery O2 Flow Rate FiO2 11/22/16 07:20 37.2 69 18 153/69 (97) 95 Nasal Cannula 2.0 11/22/16 04:00 36.7 55 20 141/50 (80) 98 Room Air 11/22/16 04:00 Nasal Cannula 2.0 11/22/16 00:00 97 Nasal Cannula 2.0 11/22/16 00:00 36.6 55 20 126/65 (85) 97 Nasal Cannula 3.0 11/21/16 20:37 37.5 89 16 166/82 (110) 100 11/21/16 20:15 Nasal Cannula 2.0 11/21/16 17:00 45 11/21/16 16:00 Nasal Cannula 2.0 11/21/16 15:29 36.9 45 16 129/53 (78) 99 Room Air 11/21/16 14:00 43 11/21/16 12:00 98 Nasal Cannula 2.0 11/21/16 11:25 37.0 58 16 178/74 (108) 98 Nasal Cannula 2.0 11/21/16 11:10 154 198/112 11/21/16 08:00 96 Nasal Cannula 2.0 11/21/16 07:45 37.0 80 16 153/67 (95) 96 Room Air (Meghan Garibay PA-C) Physical Exam Notes: General Appearance: WD/WN, no apparent distress Eyes: PERRL, EOMI ENT: pharynx without erythema, + pertinent finding (thick oral sections in posterior pharynx, MM dry.) Neck: supple, no JVD Respiratory/Chest: + pertinent finding (On 2 L via NC, coarse bronchial breath sounds throughout, no wheeze or crackles. ) Cardiovascular: regular rate, rhythm, no murmur, + pertinent finding (slightly bradycardic at HR=51) Abdomen: Hypoactive bowel sounds, non tender, soft Extremities: non-tender, no pedal edema Neurologic/Psychiatric: + pertinent finding (asleep, unarousable to physical stimuli, does not awaken during exam or discussion with family. ) Skin: normal color, warm/dry, +BLE in waffle boots. (Meghan Garibay PA-C) Laboratory Results Last 24 Hours Test 11/22/16 05:38 White Blood Count 13.31 K/uL Red Blood Count 3.87 M/uL Hemoglobin 12.1 g/dL Hematocrit 37.3 % Mean Corpuscular Volume 96.4 fL Mean Corpuscular Hemoglobin 31.3 pg Mean Corpuscular Hemoglobin Concent 32.4 g/dl RDW Standard Deviation 50.9 fL RDW Coefficient of Variation 14.4 % Platelet Count 181 K/uL Mean Platelet Volume 10.1 fL Sodium Level 153 mmol/L Potassium Level 3.7 mmol/L Chloride Level 119 mmol/L Carbon Dioxide Level 26 mmol/L Anion Gap 8.0 mmol/L Blood Urea Nitrogen 20 mg/dl Creatinine 1.00 mg/dl Est Creatinine Clear Calc Drug Dose 36.1 ml/min Estimated GFR () 58.3 Estimated GFR (Non- 50.3 BUN/Creatinine Ratio 20.1 Random Glucose 99 mg/dl Calcium Level 9.0 mg/dl (Meghan Garibay PA-C) Assessment and Plan 86 yo F with PMHX of 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 Encephalopathy in the setting of CVA, present on admission - Small age indeterminate right frontal lobe infarct and age indeterminate lacunar infarcts within the left ino and left cerebellar hemisphere, this time. - MRI head repeat on 11/21/16 IMPRESSION: 1. Again seen are foci of restricted diffusion within the left frontal lobe and the left cerebellar hemisphere consistent with evolving infarcts. The left frontal infarct has increased in volume from 11/18/2016. 2. There are numerous new foci of restricted diffusion identified. These are seen throughout the periventricular white matter bilaterally, and also involving the left parieto-occipital cortex. This is consistent with acute to subacute ischemia. 3. There is no hemorrhage or midline shift. 4. Again seen is diminished left internal carotid artery flow void consistent with known carotid artery occlusion. Was started on IV keppra for ppx seizure activity per Dr. Munoz - continue for now - If no acute changes will likely transition to comfort care soon, not currently on comfort goals. - Cont on ASA, statin therapy. - PT/OT and obtain speech garret - re-eval as needed, keep NPO - Echo complete- normal Aspiration pna?? Dysphagia - NPO with choking episode on 11/19 - BCx in process - follow - Cont zosyn Atrial fibrillation - Flipped into afib 11/19 after choking episode and was started on diltiazem gtt and lovenox. Will STOP both for now. - hold metoprolol PO at this time as NPO. IV lopressor ordered- patient received 2 doses of this yesterday and had slightly bradycardic episodes down into the high 40s and 50s, overnight has remained stable and did not show any signs of flipping back into A. fib overnight. -Continue lovenox with afib and risk of CVA, HTN - Allow permissive HTN of 175/95-150/80 - Blood pressure recommendations for the first month post hospital discharge 150 /90-130/80, and after that blood pressure recommendations 130/80-110/70 - Hydralazine 10mg IV q hrs PRN sys>220 or vj>110 Hx of Chronic diastolic CHF - repeat ECHO with hx of stroke and atrial fibrillation appears normal without abnormalities. - Hold bumex for now Chronic interstitial lung disease exacerbation. - Repeat CXR appears improved today compared to previous. Will start zosyn with possible aspiration pna. 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 - No acute component at this time. - Duonebs q hr PRN Hypothyroidism - Continue her Synthroid IV at this time. Coronary disease, CABG x 3 - stable at this time DVT ppx: Lovenox, scds CODE STATUS: DO NOT RESUSCITATE Disposition: Patient from home, lives with daughter, possibility of transitioning to comfort care measures tomorrow, at this time continue current management (Meghan Garibay, MELY) PA Physician Supervision Note: I interviewed and examined the patient. Discussed with Meghan Garibay PAC and agree with findings and plan as documented in the note. Any exceptions or clarifications are listed here: None This patient remains unresponsive or minimally responsive echo due to extension of her stroke and additional strokes it might be embolic family's the bedside and wished to continue supportive care for at least another day diverting spoke a palliative care nurse she continues her problems with oral secretions and airway protection with frequent suctioning despite transdermal scopolamine Vital signs show variable heart rate response rates atrial fibrillation and likewise variable blood pressure response She is rhonchorous upper airway breath sounds to auscultation her cardiac exam sounds are regular to me extremity without edema Acute stroke with extension and likely new embolic stroke Given her atrial fibrillation and overt bradycardic and hypotensive response to her bolus IV beta joshua we will avoid these in the future and consider digoxin if needed for rate control continue supportive care with IV fluids with no feeding as per discussion with family outlook is poor will attempt to use oral atropine drops and 1 dose of dexamethasone in case any cerebral edema was impacting her level of alertness. Patient is a DO NOT RESUSCITATE Documented By: Harvinder Allen (Harvinder Allen M.D.)
[2016-11-22] MEDS: LEVOTHYROXINE SODIUM INJ 75 MCG in SYRINGE 0 ML IV SCH (08:57)
[2016-11-22] MEDS: ASPIRIN 300 MG SUPP PR SCH (08:58)
--- NOTE | 2016-11-22 12:00 | Neurology Progress Notes ---
Neurology Progress Note Date of Service Nov 22, 2016. Subjective No significant changes since yesterday. May have been a little bit more responsive in the evening but when the family came back after dinner was unresponsive again. EEG read by myself yesterday noted right-sided slowing which indicated structural abnormalities on that side which was not consistent with her left- sided strokes. MRI of the brain report and images from yesterday were reviewed by myself. Evolutionary changes of patient's previous left hemispheric strokes, and in addition new scattered embolic appearing strokes in the right hemisphere. Objective Date Time Temp Pulse Resp B/P (MAP) Pulse Ox O2 Delivery O2 Flow Rate FiO2 11/22/16 11:31 36.9 59 18 163/75 (104) 95 2.0 11/22/16 08:00 Nasal Cannula 2.0 11/22/16 07:20 37.2 69 18 153/69 (97) 95 Nasal Cannula 2.0 11/22/16 04:00 36.7 55 20 141/50 (80) 98 Room Air 11/22/16 04:00 Nasal Cannula 2.0 11/22/16 00:00 97 Nasal Cannula 2.0 11/22/16 00:00 36.6 55 20 126/65 (85) 97 Nasal Cannula 3.0 11/21/16 20:37 37.5 89 16 166/82 (110) 100 11/21/16 20:15 Nasal Cannula 2.0 11/21/16 17:00 45 11/21/16 16:00 Nasal Cannula 2.0 11/21/16 15:29 36.9 45 16 129/53 (78) 99 Room Air 11/21/16 14:00 43 11/21/16 12:00 98 Nasal Cannula 2.0 Last 24 Hours Test 11/22/16 05:38 White Blood Count 13.31 K/uL Red Blood Count 3.87 M/uL Hemoglobin 12.1 g/dL Hematocrit 37.3 % Mean Corpuscular Volume 96.4 fL Mean Corpuscular Hemoglobin 31.3 pg Mean Corpuscular Hemoglobin Concent 32.4 g/dl RDW Standard Deviation 50.9 fL RDW Coefficient of Variation 14.4 % Platelet Count 181 K/uL Mean Platelet Volume 10.1 fL Sodium Level 153 mmol/L Potassium Level 3.7 mmol/L Chloride Level 119 mmol/L Carbon Dioxide Level 26 mmol/L Anion Gap 8.0 mmol/L Blood Urea Nitrogen 20 mg/dl Creatinine 1.00 mg/dl Est Creatinine Clear Calc Drug Dose 36.1 ml/min Estimated GFR () 58.3 Estimated GFR (Non- 50.3 BUN/Creatinine Ratio 20.1 Random Glucose 99 mg/dl Calcium Level 9.0 mg/dl Exam: Gen.: Patient is unresponsive to voice, tactile stimuli, and minimally responsive to sternal rub. HEENT: Normocephalic /atraumatic, no scleral icterus Heart: Regular rate and rhythm Extremities: No gross deformities or rashes noted Neurological examination: Mental status: Patient is unresponsive to voice, tactile stimuli, and minimally responsive to sternal rub and noxious stimuli. No speech produced. Patient did not follow commands. Cranial nerve: Pupils were midline and equally round and reactive. The rest of cranial nerves were difficult to obtain due to mental status Strength: Today appeared to move right foot more than left to noxious stimuli. Compared to previous days it does appear that the patient is moving her left leg less. Sensation: Did withdrawal toes to deep nailbed pressure Current Inpatient Medications Medications (Trade) Dose Ordered Sig/Ysabel Route Start Time Stop Time Status Last Admin Dose Admin Ondansetron HCl (Zofran Inj) 4 mg Q6H PRN IV 11/18/16 12:00 12/18/16 11:59 Hydralazine HCl (HydrALAZINE INJ) 10 mg Q4 PRN IV. 11/18/16 12:30 12/18/16 12:29 11/20/16 16:16 10 MG Levothyroxine Sodium 75 mcg/ Syringe 3.75 ml @ 2 mls/min DAILY@09 IV 11/19/16 09:00 12/19/16 08:59 11/22/16 08:57 2 MLS/MIN Albuterol/ Ipratropium (Duoneb) 3 ml Q4R PRN INH 11/18/16 12:30 12/18/16 12:29 Aspirin (Ecotrin Tab) 81 mg QAM PO 11/19/16 09:00 12/19/16 08:59 Future Hold Gadobutrol (Gadavist) 7 mmol UD PRN IV 11/18/16 22:30 11/22/16 22:29 Rosuvastatin Calcium (Crestor Tab) 10 mg PM PO 11/19/16 21:00 10/20/17 20:59 Future Hold Aspirin (Aspirin Supp) 300 mg DAILY ID 11/20/16 09:00 12/20/16 08:59 11/22/16 08:58 300 MG Enoxaparin Sodium (Lovenox Inj) 70 mg Q12H SQ 11/19/16 18:00 12/19/16 17:59 Future hold 11/22/16 05:46 70 MG Diltiazem HCl 125 mg/Dextrose 125 ml @ 0 mls/hr Q0M PRN IV 11/19/16 18:30 12/19/16 17:44 11/20/16 09:22 5 MLS/HR Scopolamine (Transderm-Scop Patch) 1.5 mg Q72H TD 11/20/16 01:30 12/20/16 01:29 11/20/16 01:48 1.5 MG Miscellaneous Information (Check Scopolamine Patch Placement) 1 ea QS N/A 11/20/16 08:00 12/20/16 07:59 11/22/16 08:02 1 EA Miscellaneous (Remove Transderm-Scop Patch) 1 ea Q72H N/A 11/23/16 01:30 12/23/16 01:29 Piperacillin Sod/ Tazobactam Sod 3.375 gm/Dextrose 115 ml @ 28.75 mls/ hr Q8H IV 11/20/16 16:00 11/27/16 15:59 11/22/16 08:51 28.75 MLS/HR Piperacillin Sod/ Tazobactam Sod (Consult) 1 ea UD PRN N/A 11/20/16 10:30 12/20/16 10:29 Levetiracetam 500 mg/Dextrose 105 ml @ 420 mls/hr Q12 IV 11/21/16 21:00 12/21/16 20:59 11/22/16 08:03 420 MLS/HR Potassium Chloride 40 meq/ Sodium Chloride 1,020 ml @ 100 mls/hr [id number] IV 11/21/16 18:00 12/21/16 16:59 11/22/16 04:00 100 MLS/HR Atropine Sulfate (Atropine Sulfate 1% Oph Soln) 4 drops Q1H PRN PO 11/22/16 11:30 12/22/16 11:29 UNV Dexamethasone Sodium Phosphate 6 mg/Syringe 1.5 ml @ 1 mls/min ONE ONCE IV 11/22/16 11:30 11/22/16 11:31 UNV Impression This is a 86-year-old female with acute to subacute left frontal, left occipital , and left cerebellum ischemic strokes. Had acute change in mental status with now evidence of right hemispheric acute embolic strokes Likely etiology cardioembolic due to paroxysmal A. fib, only recently restarted on anticoagulation since his hospital admission In addition patient has evidence of old right frontal, left ino, and left cerebellar ischemic strokes. Residual neurological deficits include severe encephalopathy, right hemiplegia, and possibly now left motor deficits. Known stroke risk factors include A. fib, hypertension, dyslipidemia, history of previous strokes. Plan Agree with medically supporting the patient as much as possible during this time. Continue anticoagulation for secondary stroke prevention. Discussed with the daughter that in terms of the occluded carotid artery, there is no procedure recommended as more harm can be done to try to open up completely occluded artery. Continue Keppra for now in the setting of embolic strokes to treat possible subclinical seizures that may have contributed to her mental status (please note that there has not been any definite/confirmed seizures). Could consider repeating a routine EEG on Thursday if mental status does not improve to rule out epileptiform discharges. I feel that it is reasonable to medically support her over the weekend to see if her mental status will improve. Discussed with family that the fact that she now has scattered acute strokes in the other hemisphere that this causes more of a poor prognosis. If mental status does not improve after the weekend and there is no other identifiable causes for her poor mental status, may want to reconsider hospice care. If there is any questions or concerns, feel free to call/page me.
[2016-11-22] MEDS ORDERED: DEXAMETHASONE INJ 6 MG in SYRINGE 0 ML IV ONE (12:30)
[2016-11-22] MEDS: HydrALAZINE HCL 20 MG/ML VIAL IV. PRN (15:13)
[2016-11-22] MEDS: ATROPINE SULFATE 1% OP SOLN 5 ML BTL PO PRN (17:44)
[2016-11-23] MEDS: PIPERACILL/TAZOBAC IV 3.375 GM in DEXTROSE 5% 100ML 100 ML IV SCH ×4 (00:19→23:49)
[2016-11-23] MEDS: POTASSIUM CHLORIDE INJ 40 MEQ in SODIUM CHLORIDE 0.9% 1000ML 1,000 ML IV SCH ×2 (00:19→10:07)
[2016-11-23] MEDS: CHECK SCOPOLAMINE PATCH PLACEMENT SCH ×4 (00:20→23:49)
[2016-11-23] MEDS: SCOPOLAMINE 1.5 MG TDSY TD SCH (00:20)
[2016-11-23 03:35] VITALS: BP 150/69; PULSE 71; TEMP 37; O2SAT 98
[2016-11-23] MEDS: ATROPINE SULFATE 1% OP SOLN 5 ML BTL PO PRN ×3 (03:48→19:58)
[2016-11-23] MEDS: ENOXAPARIN 80 MG/0.8 ML SYR SQ SCH ×2 (05:22→18:09)
[2016-11-23 07:19] LABS: CREATININE 0.92 mg/dl (0.60-1.20)
[2016-11-23 07:21] VITALS: BP_SYST 162; BP_SYST 172; BP_DIAS 61; BP_DIAS 81; PULSE 56; PULSE 81; TEMP 36.5; TEMP 36.7; O2SAT 98
--- NOTE | 2016-11-23 08:02 | Hospitalist Progress Note ---
Hospitalist Progress Note Date of Service Nov 23, 2016. (Meghan Garibay PA-C) Subjective Pt evaluation today including: conversation w/ family, physical exam, chart review, lab review Voiding: ballard catheter in place Additional Comments: ROS not obtainable due to the patient's altered mental status, lethargy. (Meghan Garibay PA-C) Objective Vital Signs Date Time Temp Pulse Resp B/P (MAP) Pulse Ox O2 Delivery O2 Flow Rate FiO2 11/23/16 07:21 36.7 56 19 172/61 (98) 98 Nasal Cannula 2.0 11/23/16 04:00 Nasal Cannula 2.0 11/23/16 03:35 37.0 71 20 150/69 (96) 98 Nasal Cannula 2.0 Humidified Oxygen 11/23/16 00:15 Nasal Cannula 2.0 11/22/16 23:39 36.8 69 18 178/69 (105) 98 Nasal Cannula 2.0 11/22/16 20:45 Nasal Cannula 2.0 11/22/16 19:19 37.5 62 18 157/72 (100) 96 Nasal Cannula 2.0 11/22/16 16:00 Nasal Cannula 2.0 11/22/16 15:06 37.2 51 20 128/68 (88) 97 Nasal Cannula 2.0 11/22/16 12:00 Nasal Cannula 2.0 11/22/16 11:31 36.9 59 18 163/75 (104) 95 2.0 (Meghan Garibay PA-C) Physical Exam Notes: General Appearance: WD/WN, no apparent distress, appears comfortable Eyes: PERRL, EOMI ENT: pharynx without erythema, + pertinent finding (thick oral sections in posterior pharynx, MM dry.) Neck: supple, no JVD Respiratory/Chest: + pertinent finding (On 2 L via NC, coarse bronchial breath sounds throughout, + occasional cough, no wheeze or crackles. ) Cardiovascular: regular rate, rhythm, no murmur, + pertinent finding ( bradycardic at HR=47) Abdomen: Hypoactive bowel sounds, non tender, soft Extremities: non-tender, no pedal edema Neurologic/Psychiatric: + pertinent finding (asleep, unarousable to verbal or physical stimuli, does not awaken during exam or discussion with family. ) Skin: normal color, warm/dry, +BLE in waffle boots. (Meghan Garibay PA-C) Laboratory Results Last 24 Hours Test 11/23/16 06:00 Creatinine 0.92 mg/dl Est Creatinine Clear Calc Drug Dose 39.5 ml/min Estimated GFR () 64.4 Estimated GFR (Non- 55.6 (Meghan Garibay PA-C) Assessment and Plan 86 yo F with PMHX of 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 Encephalopathy in the setting of CVA, present on admission - Small age indeterminate right frontal lobe infarct and age indeterminate lacunar infarcts within the left ino and left cerebellar hemisphere on initial CT, repeat MRI head repeat on 11/21/16 reviewed showing extension of the stroke. - Was started on IV keppra for ppx seizure activity per Dr. Munoz - continue for now - If no acute changes will likely transition to comfort care soon, not currently on comfort goals. - Discussion was held with the family regarding nutritional status and possibility of requiring an NG tube. At this time the family does not want to - Cont on ASA, statin therapy. - PT/OT and obtain speech garret - re-eval as needed, keep NPO - Echo complete- normal Aspiration pna?? Dysphagia - NPO with choking episode on 11/19, continue zosyn (started 11/20) - Discussion held regarding nutrition: discussed benefits of NGT insertion for tube feedings with the family ( two daughters Yaa and Floridalma, and granddaughter) and they agree that their mom would not want life sustaining measures like this. At this time they'd like to continue everything that is currently going on, speak with neurology, and then decide tomorrow if transition to comfort care only should be made. Atrial fibrillation - Flipped into afib 11/19 after choking episode and was started on diltiazem gtt and lovenox. Will STOP both for now. - hold metoprolol PO at this time as NPO. IV lopressor ordered - Overnight pt was bradycardic from 40s-60s. At bedside is 51. NSR x 48 hours - Continue lovenox with afib and risk of CVA HTN - Allow permissive HTN of 175/95-150/80 - Blood pressure recommendations for the first month post hospital discharge 150 /90-130/80, and after that blood pressure recommendations 130/80-110/70 - Hydralazine 10mg IV q hrs PRN sys>220 or vj>110 Hx of Chronic diastolic CHF - repeat ECHO with hx of stroke and atrial fibrillation appears normal without abnormalities. - Hold bumex for now Hypernatremia - Switch maintenance fluids to 1/2NSS + KCL 20 meq at 80 mL/hr Chronic interstitial lung disease exacerbation. - Repeat CXR appears improved today compared to previous. Will start zosyn with possible aspiration pna. 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 - No acute component at this time. - Duonebs q hr PRN Hypothyroidism - Continue her Synthroid IV at this time. Coronary disease, CABG x 3 - stable at this time DVT ppx: Lovenox, scds CODE STATUS: DO NOT RESUSCITATE Disposition: Patient from home, lives with daughter, possibility of transitioning to comfort care measures tomorrow, at this time continue current management (Meghan Garibay, MELY) PA Physician Supervision Note: I interviewed and examined the patient. Discussed with Meghan Garibay PAC and agree with findings and plan as documented in the note. Any exceptions or clarifications are listed here: None Patient remains obtunded she has a facial droop she is not making any purposeful movements she has no doll's eyes present family is at the bedside they're understanding the gravity of the situation they're awaiting return of neurology on the make final decisions whether to pursue palliative care but understanding we are heading in that direction Vital signs are variable heart rate variable blood pressure laboratory show elevation of sodium physical exam shows her to be not responsive pupils are minimally reactive heart is tachycardic at my exam lungs are shallow breath sounds Patient has had catastrophic strokes with likely little chance of recovery these are likely embolic. Maintaining supportive care changing IV fluid half normal saline awaiting family's final decision on pursuing palliative care measures that is expected that the patient will likely in the hospital Documented By: Harvinder Allen (Harvinder Allen M.D.)
[2016-11-23] MEDS: LEVETIRACETAM IV 500 MG in DEXTROSE 5% 100ML 100 ML IV SCH ×2 (08:04→19:58)
[2016-11-23] MEDS: ASPIRIN 300 MG SUPP PR SCH (08:06)
[2016-11-23] MEDS: LEVOTHYROXINE SODIUM INJ 75 MCG in SYRINGE 0 ML IV SCH (10:06)
[2016-11-23 10:43] VITALS: BP 166/72; PULSE 69; TEMP 36.4; O2SAT 100
[2016-11-23] MEDS: SODIUM CHLOR 0.45% + 20MEQ KCL 1,000 ML IV SCH ×2 (12:17→23:49)
[2016-11-23 14:51] VITALS: BP 188/61; PULSE 57; TEMP 36.8; O2SAT 100
[2016-11-23 18:55] VITALS: BP 153/54; PULSE 58; TEMP 36.3; O2SAT 98
[2016-11-23 23:25] VITALS: BP 184/69; PULSE 71; TEMP 36.7; O2SAT 94
[2016-11-24 04:08] VITALS: BP 180/62; PULSE 56; TEMP 36.6; O2SAT 98
[2016-11-24] MEDS: ENOXAPARIN 80 MG/0.8 ML SYR SQ SCH (06:03)
[2016-11-24 07:02] LABS: HEMATOCRIT 41.8 % (37-47); MEAN CORPUSCULAR HEMOGLOBIN 30.4 pg (25-34); MEAN CORPUSCULAR HGB CONC 31.3 g/dl (32-36); MEAN PLATELET VOLUME 10.3 fL (7.4-10.4); PLATELET COUNT 225 K/uL (130-400); RED BLOOD COUNT 4.31 M/uL (4.2-5.4)
[2016-11-24 07:28] VITALS: BP 195/71; PULSE 66; TEMP 36.3; O2SAT 98
[2016-11-24 07:35] LABS: BUN/CREATININE RATIO 20.1 (10-20); CREATININE 0.91 mg/dl (0.60-1.20); POTASSIUM 3.8 mmol/L (3.5-5.1)
[2016-11-24] MEDS: CHECK SCOPOLAMINE PATCH PLACEMENT SCH ×3 (07:47→23:21)
[2016-11-24] MEDS: LEVETIRACETAM IV 500 MG in DEXTROSE 5% 100ML 100 ML IV SCH (07:48)
[2016-11-24] MEDS: PIPERACILL/TAZOBAC IV 3.375 GM in DEXTROSE 5% 100ML 100 ML IV SCH (08:27)
[2016-11-24] MEDS: LEVOTHYROXINE SODIUM INJ 75 MCG in SYRINGE 0 ML IV SCH (08:28)
--- NOTE | 2016-11-24 08:46 | Hospitalist Progress Note ---
Hospitalist Progress Note Date of Service Nov 24, 2016. (Meghan Garibay PA-C) Subjective Pt evaluation today including: conversation w/ family, physical exam, chart review, lab review, review of studies Pt appears comfortable, asleep, does not awaken to verbal or physical stimuli. Family is present at bedside (2 daughters and grandaughter). They state " we are 99.9% confident that we will transition to comfort care today" but wanted to wait and speak with Dr. Munoz from neurology regarding if anything else was likely to improve. I spoke directly with Dr. Munoz regarding the patient over the phone after this; she was not on consults today, and not in house but she agreed that comfort care was in the patients best interest. I further discussed with family regarding this and they have agreed to make Christen comfort measures only. Additional Comments: ROS unobtainable. (Meghan Garibay PA-C) Objective Vital Signs Date Time Temp Pulse Resp B/P (MAP) Pulse Ox O2 Delivery O2 Flow Rate FiO2 11/24/16 07:28 36.3 66 21 195/71 (112) 98 Nasal Cannula 3.0 11/24/16 04:08 Nasal Cannula 2.0 11/24/16 04:08 36.6 56 20 180/62 (101) 98 Nasal Cannula 2.0 11/24/16 00:00 Nasal Cannula 2.0 11/23/16 23:25 36.7 71 18 184/69 (107) 94 Nasal Cannula 2.0 11/23/16 20:00 Nasal Cannula 2.0 11/23/16 18:55 36.3 58 19 153/54 (87) 98 Nasal Cannula 2.0 11/23/16 16:00 Nasal Cannula 2.0 11/23/16 14:51 36.8 57 18 188/61 (103) 100 Room Air 11/23/16 12:00 Nasal Cannula 2.0 11/23/16 10:43 36.4 69 17 166/72 (103) 100 Nasal Cannula 3.0 (Meghan Garibay, MELY) Physical Exam Notes: General Appearance: WD/WN, no apparent distress Eyes: PERRL, EOMI ENT: pharynx without erythema, + pertinent finding (thick oral sections in posterior pharynx, MM dry.) Neck: supple, no JVD Respiratory/Chest: + pertinent finding (On 2 L via NC, coarse bronchial breath sounds throughout, no wheeze or crackles. ) Cardiovascular: irregularly irregular, tachycardic Abdomen: Hypoactive bowel sounds, non tender, soft Extremities: non-tender, no pedal edema Neurologic/Psychiatric: + pertinent finding (asleep, unarousable to physical stimuli, does not awaken during exam or discussion with family. ) Skin: normal color, warm/dry, +BLE in waffle boots. (Meghan Garibay, GAVIC) Laboratory Results Last 24 Hours Test 11/24/16 06:23 White Blood Count 12.00 K/uL Red Blood Count 4.31 M/uL Hemoglobin 13.1 g/dL Hematocrit 41.8 % Mean Corpuscular Volume 97.0 fL Mean Corpuscular Hemoglobin 30.4 pg Mean Corpuscular Hemoglobin Concent 31.3 g/dl RDW Standard Deviation 49.8 fL RDW Coefficient of Variation 14.0 % Platelet Count 225 K/uL Mean Platelet Volume 10.3 fL Sodium Level 148 mmol/L Potassium Level 3.8 mmol/L Chloride Level 116 mmol/L Carbon Dioxide Level 22 mmol/L Anion Gap 10.0 mmol/L Blood Urea Nitrogen 18 mg/dl Creatinine 0.91 mg/dl Est Creatinine Clear Calc Drug Dose 39.9 ml/min Estimated GFR () 65.3 Estimated GFR (Non- 56.3 BUN/Creatinine Ratio 20.1 Random Glucose 105 mg/dl Calcium Level 9.0 mg/dl (Meghan Garibay PA-C) Assessment and Plan 86 yo F with PMHX of CVA likely subacute to chronic, HTN, chronic diastolic CHF , chronic interstitial lung disease, hypothyroidism, atrial fibrillation, coronary artery disease status post CABG 3 who presented with encephalopathy in the setting of CVA. MRI of the head on 11/21 showed extension of the stroke. Pt had questionable aspiration pneumonia so was treated with zosyn IV. Pt went into episode of atrial fibrillation early during admission which was controlled with cardizem gtt. Afib broke and she was transitioned off this to Lopressor IV Q4H prn for episodes of tachycardia. She had another bout of afib on 11/24 which was treated with Lopressor. Pt had fairly rapid decline of mental status , was nonresponsive and obtunded. Palliative care was consulted. Family agreed to transition to Comfort care on 11/24. . - NPO with choking episode on 11/19, continue zosyn Comfort Measures only - Atropine gtts, scopalamine patch for secretions - Morphine gtt with basal rate of 2 mg/hr for air hunger - Move to med/surg, 4 E - Appreciate palliative care recs and assistance Encephalopathy in the setting of CVA, present on admission - Small age indeterminate right frontal lobe infarct and age indeterminate lacunar infarcts within the left ino and left cerebellar hemisphere on initial CT, repeat MRI head repeat on 11/21/16 reviewed showing extension of the stroke. - Was started on IV keppra for ppx seizure activity per neurology - Discussion held with Dr. Munoz over the phone and she stated would agree with transitioning to comfort care. - stop ASA, statin therapy. - Echo complete- normal Atrial fibrillation - Flipped into afib 11/19 after choking episode and was started on diltiazem gtt and lovenox. Flapped back into afib this morning around 11:20a and was administered Lopressor IV. After this decision was made to transition to comfort care. CODE STATUS: DO NOT RESUSCITATE Disposition: Patient will likely in the hospital. (Meghan Garibay, MELY) Attending Attestation: Pt seen/examined, chart reviewed, care plan d/w DOMINICK Garibay. I agree w/ the lao components of her documentation. Pt continues to be obtunded. Briefly follows commands to family only and has done this only once in the last 24 hours. Flipped back into a. fib this am. vitals - tachy afebrile gen - obtunded, snoring eyes - pupils dilated but sluggishly reactive mouth - dry MM neck - no JVD heart - tachy, irregular lungs - course BS b/l abd - soft ext - warm A/P: Encephalopathy 2nd to numerous strokes. Multiple b/l stroke events in the last 7 days - presumably embolic from a. fib. Rapid a. fib. Hypernatremic dehydration. +troponin. CKD stage 3. Pulmonary fibrosis. Patient is now 7 days into this hospital stay. She remains obtunded. Prognosis is grim. Even if she were to recover she would likely be PEG dependent and with significant other deficits. Family at this time wishes to transition to comfort care. I agree with that plan and feel it is in her best interest. D/c all medical interventions. Comfort care measures. Morphine infusion. Support given to family. Tj Cobb MD (Tj Cobb MD)
[2016-11-24] MEDS: ATROPINE SULFATE 1% OP SOLN 5 ML BTL PO PRN (09:10)
[2016-11-24] MEDS: ASPIRIN 300 MG SUPP PR SCH (10:23)
[2016-11-24 11:19] VITALS: BP 124/62; PULSE 79; TEMP 36.8; O2SAT 100
[2016-11-24] MEDS ORDERED: NURSING VERBAL MED ORDER ONE (11:45)
[2016-11-24] MEDS: SODIUM CHLOR 0.45% + 20MEQ KCL 1,000 ML IV SCH (12:01)
[2016-11-24] MEDS ORDERED: METOPROLOL TARTRATE 1 MG/ML VIAL IV ONE (12:15)
--- NOTE | 2016-11-24 12:52 | Palliative Care Progress Note ---
Palliative Care Progress Note Date of Service Nov 24, 2016. Subjective Pt evaluation today including: conversation w/ family (daughters- Yaa and Floridalma , granddaughter- Francia), physical exam, chart review, conversation w/ rehabilitation consultant (Felipa Garibay PA-C), review of inpatient medication list Pain: unable to assess PO Intake: none Voiding: ballard catheter in place -Patient was lethargic/obtunded when I was in room. -Family states that again today, she stuck her tongue out when asked by the nurse. But she had no response really all weekend long other than some withdraw to painful stimuli. -Daughters are wanting to speak with Dr. Munoz again, then hospitalist. They feel they are close to making a decision on whether or not to move to comfort measures only. -Antibiotics and IVF continue at this time. Review of Systems unable to obtain ROS due to mental status Objective Vital Signs Date Time Temp Pulse Resp B/P (MAP) Pulse Ox O2 Delivery O2 Flow Rate FiO2 11/24/16 12:01 155 124/62 11/24/16 11:19 36.8 79 18 124/62 (82) 100 Room Air 11/24/16 08:10 Nasal Cannula 2.0 11/24/16 07:28 36.3 66 21 195/71 (112) 98 Nasal Cannula 3.0 11/24/16 04:08 Nasal Cannula 2.0 11/24/16 04:08 36.6 56 20 180/62 (101) 98 Nasal Cannula 2.0 11/24/16 00:00 Nasal Cannula 2.0 11/23/16 23:25 36.7 71 18 184/69 (107) 94 Nasal Cannula 2.0 11/23/16 20:00 Nasal Cannula 2.0 11/23/16 18:55 36.3 58 19 153/54 (87) 98 Nasal Cannula 2.0 11/23/16 16:00 Nasal Cannula 2.0 11/23/16 14:51 36.8 57 18 188/61 (103) 100 Room Air Physical Exam General Appearance: no apparent distress ENT: + pertinent finding (no secretions auscultated at this time) Neck: no JVD Respiratory/Chest: no respiratory distress, no accessory muscle use Cardiovascular: + irregularly irregular (atrial fibrillation) Neurologic/Psychiatric: + pertinent finding (lethargic/obtunded while I was in room) Assessment and Plan Problem list: Altered mental status Acute episode of choking and questionable aspiration Afib with RVR- converted to NSR, cardizem discontinued. Converted back to afib today. Htn Hx CHF, CAD, CABG Chronic interstitial lung disease/pulmonary fibrosis Goals of care (Z51.5) Palliative care recs: -Discussion held with both daughters and granddaughter. We discussed what the patient would consider quality of life. Daughter, Floridalma, stated "We don't think that sticking her tongue out every few days is quality of life for her." "she wouldn't want to be prolonged like this." Other daughter, Yaa, and granddaughter, Francia, agreed. -We discussed again that patient's living will states that in an end-stage condition she would not want life-prolonging measures. Family acknowledged this. -Family is struggling with not wanting to "give up" on patient, but also not wanting to prolong the dying process. I gave them support and we discussed for a while. They'd like to speak with neurologist and hospitalist again, and will probably make a decision in the next day. -They have my cell and will call me if needed. I will continue to follow during hospital stay and be available as needed and for the family. Palliative Performance Scale: 10 % Continued [facility] stay due to: multiple IV medications needed Discharge planning: uncertain
[2016-11-24] MEDS ORDERED: MoRPHine SULFATE 2 MG/ML CARP IV PRN (13:00)
[2016-11-24 14:17] VITALS: BP 124/62; PULSE 155; TEMP 36.8; O2SAT 100
[2016-11-24] MEDS ORDERED: MoRPHine SULFATE 1 MG/ML 50 ML PCA CASS IV PRN (15:00)
[2016-11-24] MEDS ORDERED: MoRPHine SULF/NSS 250MG/250ML 250 ML IV PRN (15:30)
[2016-11-25] MEDS ORDERED: ATROPINE SULFATE 1% OP SOLN 2 ML BTL PO PRN (07:00)
[2016-11-25] MEDS: CHECK SCOPOLAMINE PATCH PLACEMENT SCH (08:26)
--- NOTE | 2016-11-25 10:09 | Death Summary ---
Summary of Admission Date Nov 18, 2016 at 12:50 (Meghan Garibay PA-C) Date & Time of Nov 25, 2016. 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 (Meghan Garibay PA-C) Secondary Diagnoses Encephalopathy 2nd to numerous strokes. Multiple b/l stroke events in the last 7 days - presumably embolic from a. fib. Rapid a. fib. Hypernatremic dehydration. +troponin. CKD stage 3. Pulmonary fibrosis (Meghan Garibay PA-C) CAD with prior CABG chronic diastolic CHF aspiration pneumonia acute hypoxic respiratory failure hypothyroidism (Tj Cobb MD) Hospital Course History of Present Illness Source: patient, family (son in law) Pt is a 86 yo female who presents to the ER with complaints of unresponsiveness and right sided weakness this AM. Pt somnolent at this time and most of hx is obtained my son in law gerri whose home pt currently resides at. Per son in law, pt was acting normal last evening but this AM he received a call at work form one of the caretakers that she was slumped over on the couch with significant right sided weakness. Pt was unable to sit/stand and not able to converse as her speech was garbled. Pt has a hx of diastolic CHF, atrial fibrillation (not on AC due to recurrent falls), HTN, hypothyrodisim, pulm fibrosis, CAD. Physical Exam Vital Signs Date Time Temp Pulse Resp B/P (MAP) Pulse Ox O2 Delivery O2 Flow Rate FiO2 11/18/16 11:27 56 18 150/95 95 Room Air 11/18/16 10:06 61 11/18/16 10:04 36.9 60 20 205/67 97 Room Air General Appearance: WD/WN, + mild distress Head: normocephalic, atraumatic Eyes: normal inspection, PERRL, sclerae normal, + pertinent finding (facial droop noted ) Neck: supple, no adenopathy, thyroid normal, no JVD Respiratory/Chest: chest non-tender, lungs clear, normal breath sounds Cardiovascular: regular rate, rhythm, no edema, no gallop, no JVD Abdomen/GI: normal bowel sounds, non tender, soft, no organomegaly Neurologic/Psych: + facial droop, + disoriented, + pertinent finding (unable to obtain as pt somnolent, reported to have right sided weakness) Skin: normal color, warm/dry, no rash Lymphatic: no adenopathy Hospital Course: 86 yo F with PMHX of multiple CVA likely subacute to chronic, presumed embolic secondary to atrial fibrillation, HTN, chronic diastolic CHF, chronic interstitial lung disease, hypothyroidism, hx of atrial fibrillation, coronary artery disease status post CABG 3 who presented with encephalopathy in the setting of CVA. MRI of the head on 11/21 showed extension of the stroke. Pt had questionable aspiration pneumonia so was treated with zosyn IV. Pt went into episode of atrial fibrillation early during admission which was controlled with cardizem gtt. Afib broke and she was transitioned off this to Lopressor IV Q4H prn for episodes of tachycardia. She had another bout of afib on 11/24 which was treated with Lopressor. Neurology was consulted during admission. Pt had fairly rapid decline of mental status, was nonresponsive and obtunded. Palliative care was consulted. Family agreed to transition to Comfort care on . The patient ceased breathing and without pulse or heart beat at 09:35 with family present. Pastoral care provided. (Meghan Garibay PA-C) Attending Attestation: I agree with the lao components of DOMINICK Garibay's summary. I performed the patient's pronouncement and completed her certificate. 86yo female with a. fib who presented with acute embolic strokes. She had additional embolic strokes later on during her hospitalization. She remained unresponsive/obtunded for most of her stay. Due to her extremely poor prognosis comfort care measures were discussed with her family and she was transitioned to such about 24 hours prior to her . Tj Cobb MD (Tj Cobb MD) Copy To Britany Trejo M.D.
--- NOTE | 2016-11-25 10:17 | Death Pronouncement Note ---
Pronouncement Note Date & Time of Nov 25, 2016. 09:35 Pronouncement At time of pronouncement the patients pupils were fixed and dilated, there was no spontaneous respiratory effort, no palpable pulse, no audible heart tones, and no response to pain or voice. Condolences offered. Certificate completed. Tj Cobb MD
== END 2016-11-25 12:30 | disposition expired | DRG 64 ==
LOC: EDBD 09:58 → C.EDB 10:02 → C.2T 12:50 → OBSVTOIN 12:50 → UNDOADMOB 13:28 → C.2T 13:28 → ENRESERV 13:52 → C.2T 11-21 18:57 → ENRESERV 11-24 13:10 → C.4E 11-24 15:15
PROVIDERS: ADMIT Hospitalist; ATTEND Internal Medicine
DX: I63.8 Other cerebral infarction (principal); G93.40 Encephalopathy, unspecified; J69.0 Pneumonitis due to inhalation of food and vomit; I50.32 Chronic diastolic (congestive) heart failure; J84.9 Interstitial pulmonary disease, unspecified; I69.351 Hemiplegia and hemiparesis following cerebral infarction affecting right dominant side; E87.0 Hyperosmolality and hypernatremia; I48.91 Unspecified atrial fibrillation; I69.320 Aphasia following cerebral infarction; I25.10 Atherosclerotic heart disease of native coronary artery without angina pectoris; I11.0 Hypertensive heart disease with heart failure; E03.9 Hypothyroidism, unspecified; Z51.5 Encounter for palliative care; Z66 Do not resuscitate; Z79.82 Long term (current) use of aspirin; Z79.899 Other long term (current) drug therapy; Z95.1 Presence of aortocoronary bypass graft